=== PATIENT | male | born 1970 | race Caucasian/White ===

== ENCOUNTER 2018-09-06 14:15 | Emergency (ER) | payer MEDICARE, OTHER ==
[2018-09-06 14:20] VITALS: TEMP 97.6
[2018-09-06] MEDS ORDERED: DIPH,PERTUS(ACELL)TETVAC-LF 0.5 ML VIAL IM ONE (14:41)
[2018-09-06] MEDS ORDERED: LIDOCAINE 2% INJ 20 MG/ML (20 ML MDV) SQ STA (14:42)
--- NOTE | 2018-09-06 16:25 | ED ---
General Adult HPI - General Chief complaint: Wound/Laceration Stated complaint: Finger Lac Source: patient, RN notes reviewed, old records reviewed Mode of arrival: ambulatory Limitations: no limitations - History of Present Illness Initial comments: 40-year-old male patient comes to ED with laceration right hand. Patient states that he is walking with a large clean knife in his left hand to cut bread when he slipped and rapidly moved his left hand denies, causing a laceration in the right hand. Patient did not fall, no trauma to head, no loss of consciousness. Laceration is noted on the palmar aspect of the base of the first MCP joint. The patient has full range of motion of his hand/finger. Patient has full sensation of his hand/finger. Patient last tetanus was greater than 5 years ago. Patient denies all other complaints. Systemic: Pt denies fatigue, myalgia, fever/chills, rash. Pt denies weakness, night sweats, weight loss. Neuro: Pt denies headache, visual disturbances, syncope or pre-syncope. HEENT: Pt denies ocular discharge or irritation, otalgia, rhinorrhea, pharyngitis or notable lymphadenopathy. Cardiopulmonary: Pt denies chest pain, SOB, heart palpitations, dyspnea on exertion. Abdominal/GI: Pt denies abdominal pain, n/v/d. : Pt denies dysuria, burning w/ urination, frequency/urgency. Denies new onset urinary or bowel incontinence. MSK: Pt denies myalgia, loss of strength or function in extremities. - Related Data Home Medications Medication Instructions Recorded Confirmed Gabapentin [Neurontin] 600 mg PO QID 10/20/15 10/20/15 Lidocaine 5% Ointment 1 applic TOPICAL DAILY PRN 10/20/15 10/20/15 Previous Rx's Medication Instructions Recorded Aspirin 81 mg PO DAILY chew 02/12/15 HYDROcodone/APAP 10-325MG [Conger 1 tab PO Q6H PRN #20 tab 10/23/15 10-325] Cephalexin [Keflex] 500 mg PO QID 10 Days #40 cap 09/06/18 Allergies Allergy/AdvReac Type Severity Reaction Status Date / Time No Known Allergies Allergy Verified 09/06/18 14:20 Review of Systems ROS Statement: Those systems with pertinent positive or pertinent negative responses have been documented in the HPI. ROS Other: All systems not noted in ROS Statement are negative. Past Medical History Past Medical History: CVA/TIA, Hypertension, Neurologic Disorder Additional Past Medical History / Comment(s): TIA- when child, Neuropathy, recovering alcoholic History of Any Multi-Drug Resistant Organisms: None Reported Past Surgical History: Orthopedic Surgery Additional Past Surgical History / Comment(s): left ankle tendon repair, left index finger repair from a table saw accident, epidural injections Past Anesthesia/Blood Transfusion Reactions: No Reported Reaction Additional Past Anesthesia/Blood Transfusion Reaction / Comment(s): Never had blood transfusion Past Psychological History: Anxiety, Depression Smoking Status: Current every day smoker Past Alcohol Use History: None Reported, Abuse Past Drug Use History: None Reported - Past Family History Father History Unknown: Yes Family Medical History: Unable to Obtain Additional Family Medical History / Comment(s): Patient states that both his mother and father alive but he does not know any of their medical history. Patient also has one sister that he knows is overweight but otherwise does not know her medical history. Mother Additional Family Medical History / Comment(s): Had cardiac stent General Exam - General Exam Comments Initial Comments: Constitutional: NAD, AOX3, Pt has pleasant affect. HEENT: NC/AT, trachea midline, neck supple, no lymphadenopathy. Posterior pharynx non erythematous, without exudates. External ears appear normal, without discharge. Mucous membranes moist. Eyes PERRLA, EOM intact. There is no scleral icterus. No pallor noted. Cardiopulmonary: RRR, no murmurs, rubs or gallops, no JVD noted. Lungs CTAB in anterior and posterior butts. No peripheral edema. Abdominal exam: Abdomen soft and non-distended. Abdomen non-tender to palpation in all 4 quadrants. Bowel sounds active in LLQ. No hepatosplenomegaly. Neuro: CN II-XII grossly intact. MSK: Approximately 2 cm laceration at base of right first MCP joint. Wound explored, no tendons noted. No foreign bodies noted. Small tear and fashion noted, no bone exposed. Wound is previously irrigated with 1 L of normal saline. Wound was repaired by primary intention, 4 sutures placed. Wound well approximated after closure. Patient continued to remain neurovascularly intact after closure. Full range of motion of finger after closure. Limitations: no limitations Course Vital Signs 09/06/18 09/06/18 14:18 16:26 Temperature 97.6 F Pulse Rate 67 64 Respiratory 18 16 Rate Blood Pressure 124/79 115/73 O2 Sat by Pulse 99 100 Oximetry Medical Decision Making - Medical Decision Making 48-year-old male patient who presented with laceration on first MCP joint of right hand. Patient was cut with a clean knife. No foreign bodies and wound. Wound is explored, no tendons noted. Small 10 fashion noted. Wound was extensively irrigated with 1 L of normal saline. Wound was closed with 5, 50, simple interrupted sutures. Wound well approximated postclosure. Patient continued to have full range of motion and neurovascularly intact finger post closure. Patient tetanus updated. Patient referred to Dr. Garner, orthopedic surgeon. Patient written a prescription for Keflex. Patient to follow up with PCP and orthopedic surgeon in 1-2 days. Patient to return to ED if any new signs symptoms develop including decreased range of motion of finger , redness, swelling of finger, discharged from suture site. Case discussed with Dr. Mao Quintero. Disposition Clinical Impression: Laceration Disposition: HOME SELF-CARE Condition: Good Instructions: Laceration (ED) Additional Instructions: Patient to adhere to previously discussed treatment plan and will take medication(s) as directed. Patient to follow up with PCP in 1-2 days. Patient to return to ED if symptoms do not improve. Prescriptions: Cephalexin [Keflex] 500 mg PO QID 10 Days #40 cap Is patient prescribed a controlled substance at d/c from ED?: No Referrals: Araseli Argueta MD [Primary Care Provider] - 1-2 days Gary Garner MD [Medical Doctor] - 1-2 days Time of Disposition: 20:36
[2018-09-06 16:28] VITALS: BP 115/73; PULSE 64; RESP 16
== END 2018-09-06 16:34 | disposition home or self-care (01) ==
LOC: EC 14:15
DX: S61.011A Laceration without foreign body of right thumb without damage to nail, initial encounter (principal); G62.9 Polyneuropathy, unspecified; F41.9 Anxiety disorder, unspecified; F17.200 Nicotine dependence, unspecified, uncomplicated; Z79.899 Other long term (current) drug therapy; Z23 Encounter for immunization; W26.0XXA Contact with knife, initial encounter; Y93.01 Activity, walking, marching and hiking; Y92.009 Unspecified place in unspecified non-institutional (private) residence as the place of occurrence of the external cause
CPT/HCPCS: 90715; 99283; 90471; 12001; J2001

== ENCOUNTER 2019-02-21 19:20 | Inpatient (IN) | payer MEDICARE, OTHER ==
[2019-02-21] MEDS ORDERED: MORPHINE SULFATE 4 MG/ML SYRINGE IV STA (20:32)
[2019-02-21] MEDS ORDERED: SODIUM CHLORIDE 0.9% 500 ML 500 ML IV STA (20:32)
--- NOTE | 2019-02-21 20:35 | ED ---
General Adult HPI - General Chief complaint: Nausea/Vomiting/Diarrhea Stated complaint: Stomach virus Time Seen by Provider: 02/21/19 20:07 Source: patient Mode of arrival: wheelchair Limitations: no limitations - History of Present Illness Initial comments: Dictation was produced using [employer] dictation software. please excuse any gram matical, word or spelling errors. Chief Complaint: 48-year-old male past medical history of regional pain syndrome presents with abdominal pain. History of Present Illness: Reports that his pain started today while he was sleeping on the couch watching TV. States his pain started in his left upper quadrant region and immediately began radiating to his left lower back. Patient denies any exacerbating or mitigating factors. He states his pain is worse in his daily chronic regional pain disease. He does have a pain specialist. Patient was concerned that this was related to gas pain because it started after he ate a burger. He tried taking some gas those from the local pharmacy without any resolution of his symptoms. No nausea vomiting or diarrhea. Denies any constitutional symptoms. The ROS documented in this emergency department record has been reviewed and confirmed by me. Those systems with pertinent positive or negative responses have been documented in the HPI. All other systems are other negative and/or noncontributory. PHYSICAL EXAM: General Impression: Alert and oriented x3, not in acute distress HEENT: Normocephalic atraumatic, extra-ocular movements intact, pupils equal and reactive to light bilaterally, mucous membranes moist. Cardiovascular: Heart regular rate and rhythm, S1&S2 audible, no murmurs, rubs or gallops Chest: Lungs clear to auscultation bilaterally, no rhonchi, no wheeze, no rales Abdomen: Generalized abdominal tenderness to palpation worse on the left upper and left lower quadrant Musculoskeletal: Pulses present and equal in all extremities, no peripheral edema Motor: no focal deficits noted Neurological: CN II-XII grossly intact, no focal motor or sensory deficits noted Skin: Intact with no visualized rashes Psych: Normal affect and mood ED course: 48-year-old male presents with chief complaint of abdominal pain. S igns upon arrival are within acceptable limits. Laboratory evaluation obtained. Leukocytosis of 18.4. While panel is unremarkable. Lipase is 4843. X-ray KUB shows no acute processes. Given that patient has an exit pancreatitis ultrasound of the abdomen was performed. Patient reports she has a history of gallstones. Gallstones demonstrated on his ultrasound. This patient case with general surgery. Patient be admitted to Dr. Patel's group with GI and general surgery on consult. - Related Data Home Medications Medication Instructions Recorded Confirmed Gabapentin [Neurontin] 600 mg PO QID 10/20/15 02/21/19 Lidocaine 5% Ointment 1 applic TOPICAL DAILY PRN 10/20/15 02/21/19 Acetaminophen Tab [Tylenol Tab] 500 mg PO Q6H 02/21/19 02/21/19 Doxepin HCl 50 mg PO HS 02/21/19 02/21/19 Ibuprofen [Motrin Ib] 200 mg PO Q6H PRN 02/21/19 02/21/19 Simethicone [Gas-X] 125 mg PO BID PRN 02/21/19 02/21/19 Previous Rx's Medication Instructions Recorded HYDROcodone/APAP 10-325MG [Frost 1 tab PO Q6H PRN #20 tab 10/23/15 10-325] Allergies Allergy/AdvReac Type Severity Reaction Status Date / Time No Known Allergies Allergy Verified 02/21/19 20:55 Review of Systems ROS Statement: Those systems with pertinent positive or pertinent negative responses have been documented in the HPI. ROS Other: All systems not noted in ROS Statement are negative. Past Medical History Past Medical History: CVA/TIA, Hypertension, Neurologic Disorder Additional Past Medical History / Comment(s): TIA- when child, Neuropathy, recovering alcoholic History of Any Multi-Drug Resistant Organisms: None Reported Past Surgical History: Orthopedic Surgery Additional Past Surgical History / Comment(s): left ankle tendon repair, left index finger repair from a table saw accident, epidural injections Past Anesthesia/Blood Transfusion Reactions: No Reported Reaction Additional Past Anesthesia/Blood Transfusion Reaction / Comment(s): Never had blood transfusion Past Psychological History: Anxiety, Depression Smoking Status: Current every day smoker Past Alcohol Use History: None Reported, Abuse Past Drug Use History: None Reported - Past Family History Father History Unknown: Yes Family Medical History: Unable to Obtain Additional Family Medical History / Comment(s): Patient states that both his mother and father alive but he does not know any of their medical history. Patient also has one sister that he knows is overweight but otherwise does not know her medical history. Mother Additional Family Medical History / Comment(s): Had cardiac stent General Exam Limitations: no limitations Course Vital Signs 02/21/19 19:31 Temperature 98.7 F Pulse Rate 70 Respiratory 18 Rate Blood Pressure 167/95 O2 Sat by Pulse 99 Oximetry Medical Decision Making - Lab Data Result diagrams: 02/21/19 21:10 02/21/19 21:10 Lab Results 02/21/19 02/21/19 Range/Units 21:10 21:10 WBC 18.4 H (3.8-10.6) k/uL RBC 4.61 (4.30-5.90) m/uL Hgb 15.4 (13.0-17.5) gm/dL Hct 44.3 (39.0-53.0) % MCV 96.1 (80.0-100.0) fL MCH 33.3 (25.0-35.0) pg MCHC 34.7 (31.0-37.0) g/dL RDW 13.4 (11.5-15.5) % Plt Count 277 (150-450) k/uL Neutrophils % 88 % Lymphocytes % 7 % Monocytes % 3 % Eosinophils % 1 % Basophils % 0 % Neutrophils # 16.2 H (1.3-7.7) k/uL Lymphocytes # 1.3 (1.0-4.8) k/uL Monocytes # 0.6 (0-1.0) k/uL Eosinophils # 0.2 (0-0.7) k/uL Basophils # 0.1 (0-0.2) k/uL Sodium 139 (137-145) mmol/L Potassium 4.9 (3.5-5.1) mmol/L Chloride 105 (98-107) mmol/L Carbon Dioxide 23 (22-30) mmol/L Anion Gap 11 mmol/L BUN 5 L (9-20) mg/dL Creatinine 0.59 L (0.66-1.25) mg/dL Est GFR (CKD-EPI)AfAm >90 (>60 ml/min/1.73 sqM) Est GFR (CKD-EPI)NonAf >90 (>60 ml/min/1.73 sqM) Glucose 135 H (74-99) mg/dL Calcium 9.9 (8.4-10.2) mg/dL Total Bilirubin 0.7 (0.2-1.3) mg/dL AST 23 (17-59) U/L ALT 33 (21-72) U/L Alkaline Phosphatase 81 (38-126) U/L Total Protein 7.9 (6.3-8.2) g/dL Albumin 4.8 (3.5-5.0) g/dL Lipase 4843 H (23-300) U/L Disposition Clinical Impression: Gallstone pancreatitis Disposition: ADMITTED IP TO THIS HOSP Condition: Fair Referrals: Araseli Argueta MD [Primary Care Provider] - 1-2 days Decision Time: 22:52
[2019-02-21] MEDS ORDERED: ONDANSETRON 4 MG/2 ML VIAL IVP STA (21:15)
[2019-02-21 21:24] LABS: Basophils # (A) 0.1 k/uL (0-0.2); Basophils % (A) 0 %; Eosinophils # (A) 0.2 k/uL (0-0.7); Eosinophils % (A) 1 %; HCT 44.3 % (39.0-53.0); HGB 15.4 gm/dL (13.0-17.5); Lymphocytes # (A) 1.3 k/uL (1.0-4.8); Lymphocytes % (A) 7 %; MCH 33.3 pg (25.0-35.0); MCHC 34.7 g/dL (31.0-37.0); MCV 96.1 fL (80.0-100.0); Mean Platelet Volume 7.5; Monocytes # (A) 0.6 k/uL (0-1.0); Monocytes % (A) 3 %; Neutrophils # (A) 16.2 k/uL (1.3-7.7); Neutrophils % (A) 88 %; Platelet Count 277 k/uL (150-450); RBC 4.61 m/uL (4.30-5.90); RDW 13.4 % (11.5-15.5); WBC 18.4 k/uL (3.8-10.6)
[2019-02-21 21:35] LABS: ALT 33 U/L (21-72); AST 23 U/L (17-59); Albumin 4.8 g/dL (3.5-5.0); Alkaline Phosphatase 81 U/L (38-126); Anion Gap 11 mmol/L; Blood Urea Nitrogen 5 mg/dL (9-20); Calcium 9.9 mg/dL (8.4-10.2); Carbon Dioxide 23 mmol/L (22-30); Chloride 105 mmol/L (98-107); Glucose 135 mg/dL (74-99); Sodium 139 mmol/L (137-145); Total Bilirubin 0.7 mg/dL (0.2-1.3); Total Protein 7.9 g/dL (6.3-8.2)
--- NOTE | 2019-02-21 21:46 | XR ---
EXAMINATION TYPE: XR KUB DATE OF EXAM: 02/21/2019 COMPARISON: 08/20/2015 HISTORY: Nausea and vomiting TECHNIQUE: 2 views FINDINGS: 2 views upright show no sign of intestinal obstruction or pneumoperitoneum. Fecal pattern i s normal. Lung bases are clear. There are no pathologic calcifications over the kidneys. There is pro bably vas deferens calcification which is associated with diabetes. IMPRESSION: Nonacute abdomen. No change.
[2019-02-21 21:57] LABS: Potassium 4.9 mmol/L (3.5-5.1)
[2019-02-21 22:21] LABS: Lipase 4843 U/L (23-300)
[2019-02-21] MEDS ORDERED: MORPHINE SULFATE 4 MG/ML SYRINGE IVP STA (22:47)
[2019-02-21] MEDS ORDERED: NALOXONE 0.4 MG/ML 1 ML VIAL IV PRN (22:52)
--- NOTE | 2019-02-21 23:15 | US ---
EXAM: US Abdomen Complete CLINICAL HISTORY: ITS.REASON US Reason: Pain TECHNIQUE: Real-time ultrasound of the abdomen (complete) with image documentation. COMPARISON: No relevant prior studies available. FINDINGS: Liver: Unremarkable. No mass. No intrahepatic bile duct dilation. Gallbladder: Nonmobile stone in the gallbladder neck with borderline wall thickening and positive Harris's. A gallbladder sludge ball is present. Common bile duct: Unremarkable as visualized. No stones. No dilation. Pancreas: Unremarkable as visualized. Kidneys: Unremarkable. No stones. No solid mass. No hydronephrosis. Spleen: Unremarkable. No splenomegaly. Aorta: Unremarkable. No aneurysm. Inferior vena cava: Unremarkable. IMPRESSION: Cholelithiasis and possible cholecystitis.
[2019-02-21] MEDS: SODIUM CHLORIDE 0.9% 1,000 ML IV SCH (23:28)
[2019-02-22] MEDS ORDERED: GABAPENTIN 300 MG CAP PO SCH (00:30)
[2019-02-22] MEDS: GABAPENTIN 300 MG CAP PO SCH ×4 (00:44→17:32)
[2019-02-22 01:10] LABS: Appearance,Urine Cloudy (Clear); Bacteria,Urine Many /hpf; Bilirubin,Urine Negative (Negative); Blood,Urine Trace (Negative); Color,Urine Yellow; Glucose,Urine (UA) Negative (Negative); Hyaline Casts,Urine 1 /lpf (0-2); Ketones,Urine Negative (Negative); Leukocyte Esterase,Urine Small (Negative); Mucus,Urine Rare /hpf; Nitrite,Urine Positive (Negative); PH, Urine 5.5 (5.0-8.0); Protein,Urine 1+ (Negative); RBC,Urine 5 /hpf (0-5); Specific Gravity,Urine 1.023 (1.001-1.035); Squamous Epithelial Cell,Urine <1 /hpf (0-4); Urobilinogen,Urine <2.0 mg/dL (<2.0)
[2019-02-22] MEDS: NICOTINE 21MG/24HR PATCH TRANSDERM SCH (01:12)
[2019-02-22] MEDS: MORPHINE SULFATE 4 MG/ML SYRINGE IV PRN ×5 (03:17→20:01)
[2019-02-22] MEDS: ACETAMINOPHEN TAB 325 MG TAB PO PRN ×4 (04:59→23:03)
[2019-02-22] MEDS: PANTOPRAZOLE 40 MG/10 ML VIAL IV SCH (07:20)
[2019-02-22] MEDS: DOCUSATE 100 MG CAP PO PRN (10:19)
--- NOTE | 2019-02-22 10:30 | P.GSCN ---
History of Present Illness Consult date: 02/22/19 History of present illness: 48-year-old male presented to the emergency department with complaints of abdominal pain in the epigastrium, nausea and vomiting episodes. He states that the pain started a few hours prior to his presentation to the emergency department. He denied any fevers, chills, chest pain or shortness of breath. On workup in the emergency department, the patient was found to have a lipase level greater than 4000 and was noted to also have gallstones and biliary sludge on ultrasound of the gallbladder. The patient denies any recent alcohol intake. He states that he does have chronic pain issues and does take chronic opiates daily along with Lidoderm patches. He denies any change in bowel function. He denies any difficulty with urination. Currently, on exam the patient states that he does not feel any different than when he presented to the emergency department. He does state he has known about cholelithiasis for approximately 2 years. He de nies any previous abdominal surgery. Review of Systems All systems: negative Past Medical History Past Medical History: CVA/TIA, Hypertension, Neurologic Disorder Additional Past Medical History / Comment(s): TIA- when child, Neuropathy, recovering alcoholic History of Any Multi-Drug Resistant Organisms: None Reported Past Surgical History: Orthopedic Surgery Additional Past Surgical History / Comment(s): left ankle tendon repair, left index finger repair from a table saw accident, epidural injections Past Anesthesia/Blood Transfusion Reactions: No Reported Reaction Additional Past Anesthesia/Blood Transfusion Reaction / Comm: Never had blood transfusion Past Psychological History: Anxiety, Depression Smoking Status: Current every day smoker Past Alcohol Use History: None Reported, Abuse Additional Past Alcohol Use History / Comment(s): Patient is a smoker of 1-1/2 packs per day since he was 25 years of age. He states he does not drink alcohol on a regular basis but does have a history of 2 [address] denies [address] drug use. Patient is single and does not have any children. Past Drug Use History: None Reported - Past Family History Father History Unknown: Yes Family Medical History: Unable to Obtain Additional Family Medical History / Comment(s): Patient states that both his mother and father alive but he does not know any of their medical history. Patient also has one sister that he knows is overweight but otherwise does not know her medical history. Mother Additional Family Medical History / Comment(s): Had cardiac stent Medications and Allergies Home Medications Medication Instructions Recorded Confirmed Type Gabapentin [Neurontin] 600 mg PO QID 10/20/15 02/21/19 History Lidocaine 5% Ointment 1 applic TOPICAL DAILY PRN 10/20/15 02/21/19 History HYDROcodone/APAP 10-325MG [Pool 1 tab PO Q6H PRN #20 tab 10/23/15 02/21/19 Rx 10-325] Acetaminophen Tab [Tylenol Tab] 500 mg PO Q6H 02/21/19 02/21/19 History Doxepin HCl 50 mg PO HS 02/21/19 02/21/19 History Ibuprofen [Motrin Ib] 200 mg PO Q6H PRN 02/21/19 02/21/19 History Simethicone [Gas-X] 125 mg PO BID PRN 02/21/19 02/21/19 History Allergies Allergy/AdvReac Type Severity Reaction Status Date / Time No Known Allergies Allergy Verified 02/21/19 20:55 Surgical - Exam Osteopathic Statement: *. No significant issues noted on an osteopathic structural exam other than those noted in the History and Physical/Consult. Vital Signs Temp Pulse Resp BP Pulse Ox 98.7 F 70 18 167/95 99 02/21/19 19:31 02/21/19 19:31 02/21/19 19:31 02/21/19 19:31 02/21/19 19:31 - General Disheveled well nourished, no distress - Eyes PERRL, normal ocular movement - ENT no hearing loss - Neck trachea midline - Respiratory No difficulty with respiration - Abdomen Soft, tender to palpation in the epigastrium, nondistended, no rebound, no guarding - Psychiatric oriented to time, oriented to person, oriented to place Results - Labs 02/21/19 21:10 02/21/19 21:10 Abnormal Lab Results - Last 24 Hours (Table) 02/21/19 02/21/19 02/21/19 Range/Units 21:10 21:10 21:25 WBC 18.4 H (3.8-10.6) k/uL Neutrophils # 16.2 H (1.3-7.7) k/uL BUN 5 L (9-20) mg/dL Creatinine 0.59 L (0.66-1.25) mg/dL Glucose 135 H (74-99) mg/dL Lipase 4843 H (23-300) U/L Urine Protein 1+ H (Negative) Urine Blood Trace H (Negative) Ur Leukocyte Esterase Small H (Negative) Urine WBC 21 H (0-5) /hpf Urine Bacteria Many H (None) /hpf Urine Mucus Rare H (None) /hpf Microbiology - Last 24 Hours (Table) 02/21/19 21:25 Urine Culture - Preliminary Urine,Clean Catch Diabetes panel 02/21/19 Range/Units 21:10 Sodium 139 (137-145) mmol/L Potassium 4.9 (3.5-5.1) mmol/L Chloride 105 (98-107) mmol/L Carbon Dioxide 23 (22-30) mmol/L BUN 5 L (9-20) mg/dL Creatinine 0.59 L (0.66-1.25) mg/dL Glucose 135 H (74-99) mg/dL Calcium 9.9 (8.4-10.2) mg/dL AST 23 (17-59) U/L ALT 33 (21-72) U/L Alkaline Phosphatase 81 (38-126) U/L Total Protein 7.9 (6.3-8.2) g/dL Albumin 4.8 (3.5-5.0) g/dL Calcium panel 02/21/19 Range/Units 21:10 Calcium 9.9 (8.4-10.2) mg/dL Albumin 4.8 (3.5-5.0) g/dL Pituitary panel 02/21/19 Range/Units 21:10 Sodium 139 (137-145) mmol/L Potassium 4.9 (3.5-5.1) mmol/L Chloride 105 (98-107) mmol/L Carbon Dioxide 23 (22-30) mmol/L BUN 5 L (9-20) mg/dL Creatinine 0.59 L (0.66-1.25) mg/dL Glucose 135 H (74-99) mg/dL Calcium 9.9 (8.4-10.2) mg/dL Adrenal panel 02/21/19 Range/Units 21:10 Sodium 139 (137-145) mmol/L Potassium 4.9 (3.5-5.1) mmol/L Chloride 105 (98-107) mmol/L Carbon Dioxide 23 (22-30) mmol/L BUN 5 L (9-20) mg/dL Creatinine 0.59 L (0.66-1.25) mg/dL Glucose 135 H (74-99) mg/dL Calcium 9.9 (8.4-10.2) mg/dL Total Bilirubin 0.7 (0.2-1.3) mg/dL AST 23 (17-59) U/L ALT 33 (21-72) U/L Alkaline Phosphatase 81 (38-126) U/L Total Protein 7.9 (6.3-8.2) g/dL Albumin 4.8 (3.5-5.0) g/dL Assessment and Plan (1) Gallstone pancreatitis Narrative/Plan: 48-year-old male with gallstone pancreatitis - Ultrasound does show concern for cholecystitis. With a leukocytosis of 18.4, we will begin Unasyn. - Increase IV fluids to 150 mL/h - Keep the patient nothing by mouth, okay for ice chips and medications - Case was discussed with gastroenterology, plan was agreed on - Patient will require a cholecystectomy during this admission after the pancreatitis clears, we will treat pancreatitis and cholecystitis in the meantime with IV fluids and antibiotics. Current Visit: Yes Status: Acute Code(s): K85.10 - BILIARY ACUTE PANCREATITIS WITHOUT NECROSIS OR INFECTION SNOMED Code(s): 01988911
[2019-02-22 10:46] LABS: Basophils % (A) 0 %; Eosinophils # (A) 0.2 k/uL (0-0.7); Eosinophils % (A) 1 %; HCT 46.7 % (39.0-53.0); HGB 15.7 gm/dL (13.0-17.5); Lymphocytes # (A) 1.4 k/uL (1.0-4.8); Lymphocytes % (A) 7 %; MCH 32.8 pg (25.0-35.0); MCHC 33.7 g/dL (31.0-37.0); MCV 97.1 fL (80.0-100.0); Mean Platelet Volume 7.1; Monocytes # (A) 1.1 k/uL (0-1.0); Monocytes % (A) 6 %; Neutrophils % (A) 85 %; Platelet Count 266 k/uL (150-450); RBC 4.81 m/uL (4.30-5.90); RDW 13.5 % (11.5-15.5); WBC 18.9 k/uL (3.8-10.6)
[2019-02-22 11:01] LABS: ALT 31 U/L (21-72); AST 15 U/L (17-59); Albumin 4.2 g/dL (3.5-5.0); Alkaline Phosphatase 80 U/L (38-126); Anion Gap 8 mmol/L; Blood Urea Nitrogen 6 mg/dL (9-20); Calcium 9.6 mg/dL (8.4-10.2); Carbon Dioxide 33 mmol/L (22-30); Chloride 97 mmol/L (98-107); Glucose 110 mg/dL (74-99); Potassium 4.4 mmol/L (3.5-5.1); Sodium 138 mmol/L (137-145); Total Bilirubin 0.6 mg/dL (0.2-1.3); Total Protein 6.9 g/dL (6.3-8.2)
[2019-02-22 11:14] LABS: Amylase 528 U/L (30-110); Lipase 2870 U/L (23-300)
[2019-02-22] MEDS: SODIUM CHLORIDE 0.9% 1,000 ML IV SCH ×2 (12:13→17:33)
--- NOTE | 2019-02-22 14:43 | P.HPIM ---
History of Present Illness 80-year-old male came to emergency button with complaint of severe epigastric abdominal pain radiating to the back along with nausea vomiting multiple episodes patient had also has a right upper quadrant abdominal pain, patient did quit drinking alcohol about 3-4 months ago. Patient had an ultrasound of the gallbladder which showed gallstones with biliary sludge and possibility of cholecystitis that cannot be ruled out patient does have a right upper quadrant tenderness as well as epigastric abdominal tenderness patient is presently nothing by mouth lipase and amylase were elevated which are coming down at this time patient will remain will need to remain nothing by mouth and the patient was started on Unasyn as per original surgery for possibility of cholecystitis, patient doesn't have any significant elevated liver enzymes there is no evidence of cortical gases are biliary obstruction at this time. Patient did denied any fever chills cough. Review of Systems REVIEW OF SYSTEMS: CONSTITUTIONAL: No fever, no malaise, no fatigue. HEENT: No recent visual problems or hearing problems. Denied any sore throat. CARDIOVASCULAR: No chest pain, orthopnea, PND, no palpitations, no syncope. PULMONARY: No shortness of breath, no cough, no hemoptysis. GASTROINTESTINAL: As mentioned in HPI NEUROLOGICAL: No headaches, no weakness, no numbness. HEMATOLOGICAL: Denies any bleeding or petechiae. GENITOURINARY: Denies any burning micturition, frequency, or urgency. MUSCULOSKELETAL/RHEUMATOLOGICAL: Denies any joint pain, swelling, or any muscle pain. ENDOCRINE: Denies any polyuria or polydipsia. The rest of the 14-point review of systems is negative. Past Medical History Past Medical History: CVA/TIA, Hypertension, Neurologic Disorder Additional Past Medical History / Comment(s): TIA- when child, Neuropathy, recov ering alcoholic History of Any Multi-Drug Resistant Organisms: None Reported Past Surgical History: Orthopedic Surgery Additional Past Surgical History / Comment(s): left ankle tendon repair, left index finger repair from a table saw accident, epidural injections Past Anesthesia/Blood Transfusion Reactions: No Reported Reaction Additional Past Anesthesia/Blood Transfusion Reaction / Comment(s): Never had blood transfusion Past Psychological History: Anxiety, Depression Smoking Status: Current every day smoker Past Alcohol Use History: None Reported, Abuse Additional Past Alcohol Use History / Comment(s): Patient is a smoker of 1-1/2 packs per day since he was 25 years of age. He states he does not drink alcohol on a regular basis but does have a history of 2 [address] denies [address] drug use. Patient is single and does not have any children. Past Drug Use History: None Reported - Past Family History Father History Unknown: Yes Family Medical History: Unable to Obtain Additional Family Medical History / Comment(s): Patient states that both his mother and father alive but he does not know any of their medical history. Chanel hi also has one sister that he knows is overweight but otherwise does not know her medical history. Mother Additional Family Medical History / Comment(s): Had cardiac stent Medications and Allergies Home Medications Medication Instructions Recorded Confirmed Type Gabapentin [Neurontin] 600 mg PO QID 10/20/15 02/21/19 History Lidocaine 5% Ointment 1 applic TOPICAL DAILY PRN 10/20/15 02/21/19 History HYDROcodone/APAP 10-325MG [[place] 1 tab PO Q6H PRN #20 tab 10/23/15 02/21/19 Rx 10-325] Acetaminophen Tab [Tylenol Tab] 500 mg PO Q6H 02/21/19 02/21/19 History Doxepin HCl 50 mg PO HS 02/21/19 02/21/19 History Ibuprofen [Motrin Ib] 200 mg PO Q6H PRN 02/21/19 02/21/19 History Simethicone [Gas-X] 125 mg PO BID PRN 02/21/19 02/21/19 History Allergies Allergy/AdvReac Type Severity Reaction Status Date / Time No Known Allergies Allergy Verified 02/21/19 20:55 Physical Exam Vitals: Vital Signs Temp Pulse Pulse Resp BP BP Pulse Ox 02/22/19 07:50 99.0 F 77 16 152/82 95 02/22/19 01:10 98.5 F 69 16 162/84 94 L 02/21/19 23:48 98.2 F 74 20 158/95 94 L 02/21/19 23:41 98.8 F 78 15 119/67 99 02/21/19 19:31 98.7 F 70 18 167/95 99 Intake and Output 02/21/19 02/22/19 02/22/19 22:59 06:59 14:59 Intake Total 500 1200 Output Total 550 Balance -50 1200 Intake: Amount of Fluid Infused ( 500 ml) Intake, IV Titration 1200 Amount Sodium Chloride 0.9% 1, 1200 000 ml @ 150 mls/hr IV . Q6H40M [facility] Rx#:[id number] Output: Urine 550 Other: Voiding Method Urinal # Voids 1 2 Weight 65.771 kg PHYSICAL EXAMINATION: GENERAL: The patient is alert and oriented x3, not in any acute distress. Well developed, well nourished. HEENT: Pupils are round and equally reacting to light. EOMI. No scleral icterus. No conjunctival pallor. Normocephalic, atraumatic. No pharyngeal erythema. No thyromegaly. CARDIOVASCULAR: S1 and S2 present. No murmurs, rubs, or gallops. PULMONARY: Chest is clear to auscultation, no wheezing or crackles. ABDOMEN: Soft, the gastric abdominal tenderness and right upper quadrant tenderness bowel sounds are present MUSCULOSKELETAL: No joint swelling or deformity. EXTREMITIES: No cyanosis, clubbing, or pedal edema. NEUROLOGICAL: Gross neurological examination did not reveal any focal deficits. SKIN: No rashes. Results CBC & Chem 7: 02/22/19 10:30 02/22/19 10:30 Labs: Abnormal Lab Results - Last 24 Hours (Table) 02/21/19 02/21/19 02/21/19 Range/Units 21:10 21:10 21:25 WBC 18.4 H (3.8-10.6) k/uL Neutrophils # 16.2 H (1.3-7.7) k/uL Monocytes # (0-1.0) k/uL Chloride (98-107) mmol/L Carbon Dioxide (22-30) mmol/L BUN 5 L (9-20) mg/dL Creatinine 0.59 L (0.66-1.25) mg/dL Glucose 135 H (74-99) mg/dL AST (17-59) U/L Amylase (30-110) U/L Lipase 4843 H (23-300) U/L Urine Protein 1+ H (Negative) Urine Blood Trace H (Negative) Ur Leukocyte Esterase Small H (Negative) Urine WBC 21 H (0-5) /hpf Urine Bacteria Many H (None) /hpf Urine Mucus Rare H (None) /hpf 02/22/19 02/22/19 Range/Units 10:30 10:30 WBC 18.9 H (3.8-10.6) k/uL Neutrophils # 16.0 H (1.3-7.7) k/uL Monocytes # 1.1 H (0-1.0) k/uL Chloride 97 L (98-107) mmol/L Carbon Dioxide 33 H (22-30) mmol/L BUN 6 L (9-20) mg/dL Creatinine (0.66-1.25) mg/dL Glucose 110 H (74-99) mg/dL AST 15 L (17-59) U/L Amylase 528 H* (30-110) U/L Lipase 2870 H (23-300) U/L Urine Protein (Negative) Urine Blood (Negative) Ur Leukocyte Esterase (Negative) Urine WBC (0-5) /hpf Urine Bacteria (None) /hpf Urine Mucus (None) /hpf Microbiology - Last 24 Hours (Table) 02/21/19 21:25 Urine Culture - Preliminary Urine,Clean Catch Thrombosis Risk Factor Assmnt - Choose All That Apply Each Factor Represents 1 point: Age 41-60 years Thrombosis Risk Factor Assessment Total Risk Factor Score: 1 Thrombosis Risk Factor Assessment Level: Low Risk Assessment and Plan Plan: -Gallstone pancreatitis: Patient can you done IV fluids at present rate patient will remain nothing by mouth. -Possibility of cholecystitis: Continue with Unasyn and IV fluids as mentioned above -Hypertension -Depression -nicotine use: Counseling was provided regarding this. Patient will need pharmacologic GI and DVT prophylaxis
[2019-02-22] MEDS: AMPICILLIN-SULBACTAM 3 GM in SODIUM CHLORIDE 0.9% 100 ML IVPB SCH (16:18)
[2019-02-22] MEDS: HEPARIN SODIUM,PORCINE 5,000 UNIT/ML 1 ML VIAL SQ SCH (16:29)
[2019-02-22] MEDS: ONDANSETRON 4 MG/2 ML VIAL IVP PRN (21:41)
--- NOTE | 2019-02-22 23:46 | P.CONS ---
History of Present Illness - Reason for Consult Consult date: 02/22/19 Pancreatitis Requesting physician: Fernando Irvin - Chief Complaint Abdominal pain - History of Present Illness 48-year-old male with a medical history significant for regional pain syndrome who presented to the hospital with complaints of abdominal pain. The patient reports that the pain occurred a few hours prior to presentation to the emergency department. He reports that initially started in the left upper quadrant of his abdomen with radiation into his back and then moved to the right side of his upper abdomen. The patient reports that the pain was worse after eating and that he had associated episodes of nausea and vomiting. He denies any change in his bowel habits, hematochezia, melena or blood per rectum, he does report constipation at baseline. On presentation to the hospital he was found to have a WBC 18.4, hemoglobin 15.4, platelet count 277,000. Lipase was found to be 4843. Total bilirubin 0.7, alkaline phosphatase 81, AST 23, ALT 33. The patient had an x-ray of the abdomen which was negative for any acute findings. Ultrasound of the abdomen was significant for cholelithiasis with possible cholecystitis, with no common bile duct dilation noted. Review of Systems REVIEW OF SYSTEMS: CONSTITUTIONAL: Denies any fevers, chills, weight change or fatigue. CARDIOVASCULAR: Denies any chest pain, palpitations high or low blood pressures RESPIRATORY: Denies any shortness of breath, hemoptysis or cough. GENITOURINARY: No dysuria or hematuria. MUSCULOSKELETAL: No weakness reported. SKIN: Denies any new rashes or lesions, jaundice or pallor. PSYCHIATRIC: Denies change in mood. NEUROLOGY: Denies headache, denies any new focal deficits. EARS/NOSE/THROAT: No recent hearing change, congestion, nasal discharge or sore throat. EYES: No pain in eyes, discharge or change in vision. GASTROINTESTINAL: As per HPI. Past Medical History Past Medical History: CVA/TIA, Hypertension, Neurologic Disorder Additional Past Medical History / Comment(s): TIA- when child, Neuropathy, recovering alcoholic History of Any Multi-Drug Resistant Organisms: None Reported Past Surgical History: Orthopedic Surgery Additional Past Surgical History / Comment(s): left ankle tendon repair, left index finger repair from a table saw accident, epidural injections Past Anesthesia/Blood Transfusion Reactions: No Reported Reaction Additional Past Anesthesia/Blood Transfusion Reaction / Comm: Never had blood transfusion Past Psychological History: Anxiety, Depression Smoking Status: Current every day smoker Past Alcohol Use History: None Reported, Abuse Additional Past Alcohol Use History / Comment(s): Patient is a smoker of 1-1/2 packs per day since he was 25 years of age. He states he does not drink alcohol on a regular basis but does have a history of 2 DUIs[address] denies any [address] drug use. Patient is single and does not have any children. Past Drug Use History: None Reported - Past Family History Father History Unknown: Yes Family Medical History: Unable to Obtain Additional Family Medical History / Comment(s): Patient states that both his mother and father alive but he does not know any of their medical history. Patient also has one sister that he knows is overweight but otherwise does not know her medical history. Mother Additional Family Medical History / Comment(s): Had cardiac stent Medications and Allergies Home Medications Medication Instructions Recorded Confirmed Type Gabapentin [Neurontin] 600 mg PO QID 10/20/15 02/21/19 History Lidocaine 5% Ointment 1 applic TOPICAL DAILY PRN 10/20/15 02/21/19 History HYDROcodone/APAP 10-325MG [[place] 1 tab PO Q6H PRN #20 tab 10/23/15 02/21/19 Rx 10-325] Acetaminophen Tab [Tylenol Tab] 500 mg PO Q6H 02/21/19 02/21/19 History Doxepin HCl 50 mg PO HS 02/21/19 02/21/19 History Ibuprofen [Motrin Ib] 200 mg PO Q6H PRN 02/21/19 02/21/19 History Simethicone [Gas-X] 125 mg PO BID PRN 02/21/19 02/21/19 History Allergies Allergy/AdvReac Type Severity Reaction Status Date / Time No Known Allergies Allergy Verified 02/21/19 20:55 Physical Exam Vitals: Vital Signs Temp Pulse Pulse Resp BP BP Pulse Ox 02/22/19 20:10 98.0 F 02/22/19 19:00 101.0 F H 97 20 154/94 93 L 02/22/19 14:47 98.9 F 68 16 152/99 96 02/22/19 07:50 99.0 F 77 16 152/82 95 02/22/19 01:10 98.5 F 69 16 162/84 94 L 02/21/19 23:48 98.2 F 74 20 158/95 94 L 02/21/19 23:41 98.8 F 78 15 119/67 99 Intake and Output 02/22/19 02/22/19 02/23/19 14:59 22:59 06:59 Intake Total 1200 Output Total 600 Balance 1200 -600 Intake: Intake, IV Titration 1200 Amount Sodium Chloride 0.9% 1, 1200 000 ml @ 150 mls/hr IV . Q6H40M [facility] Rx#:[id number] Output: Urine 600 Other: Voiding Method Urinal # Voids 2 On physical examination, patient appears comfortable in no apparent distress. HEAD: Normocephalic, atraumatic. EYES: No scleral icterus. No conjunctival injection. MOUTH: No lesions, tongue midline. NECK: Trachea midline, no gross abnormalities. CHEST: Clear to auscultation with no wheezing or rhonchi appreciated. HEART: Regular rate and rhythm. ABDOMEN: Soft, diffusely tender to palpation. Bowel sounds are positive. No organomegaly. No guarding or rigidity. EXTREMITIES: No pedal edema. SKIN: No rashes, no jaundice. NEUROLOGIC: Alert and oriented x3. No focal deficits. Results CBC & Chem 7: 02/22/19 10:30 02/22/19 10:30 Labs: Abnormal Lab Results - Last 24 Hours (Table) 02/21/19 02/22/19 02/22/19 Range/Units 21:25 10:30 10:30 WBC 18.9 H (3.8-10.6) k/uL Neutrophils # 16.0 H (1.3-7.7) k/uL Monocytes # 1.1 H (0-1.0) k/uL Chloride 97 L (98-107) mmol/L Carbon Dioxide 33 H (22-30) mmol/L BUN 6 L (9-20) mg/dL Glucose 110 H (74-99) mg/dL AST 15 L (17-59) U/L Amylase 528 H* (30-110) U/L Lipase 2870 H (23-300) U/L Urine Protein 1+ H (Negative) Urine Blood Trace H (Negative) Ur Leukocyte Esterase Small H (Negative) Urine WBC 21 H (0-5) /hpf Urine Bacteria Many H (None) /hpf Urine Mucus Rare H (None) /hpf Microbiology - Last 24 Hours (Table) 02/21/19 21:25 Urine Culture - Preliminary Urine,Clean Catch US - abdomen: report reviewed (Ultrasound of the abdomen was significant for cholelithiasis with possible cholecystitis, with no common bile duct dilation noted.) Assessment and Plan (1) Gallstone pancreatitis Narrative/Plan: 48-year-old male who presented to the hospital with complaints of abdominal pain and found to have elevation in his amylase and lipase. Ultrasound of the abdomen was significant for cholelithiasis with possible cholecystitis seen. Current Visit: Yes Status: Acute Code(s): K85.10 - BILIARY ACUTE PANCREATITIS WITHOUT NECROSIS OR INFECTION SNOMED Code(s): 41903398 (2) Cholelithiasis Current Visit: No Status: Acute Code(s): K80.20 - CALCULUS OF GALLBLADDER W/O CHOLECYSTITIS W/O OBSTRUCTION SNOMED Code(s): 621287951 Plan: Supportive care Nothing by mouth IV fluid hydration Pain control Appreciate surgical recommendations Continue Unasyn therapy Timing of cholecystectomy to be disrupted with the surgery service No plan for ERCP with low probability of choledocholithiasis in the setting of no ductal dilation and normal liver enzymes Thank you for allowing us to participate in the care of the patient we will continue to follow
[2019-02-23] MEDS: HEPARIN SODIUM,PORCINE 5,000 UNIT/ML 1 ML VIAL SQ SCH ×3 (00:04→14:52)
[2019-02-23] MEDS: AMPICILLIN-SULBACTAM 3 GM in SODIUM CHLORIDE 0.9% 100 ML IVPB SCH ×4 (00:05→23:53)
[2019-02-23] MEDS: SODIUM CHLORIDE 0.9% 1,000 ML IV SCH ×3 (00:05→14:51)
[2019-02-23] MEDS: GABAPENTIN 300 MG CAP PO SCH ×4 (00:05→18:03)
[2019-02-23] MEDS: MORPHINE SULFATE 4 MG/ML SYRINGE IV PRN ×6 (00:06→23:53)
[2019-02-23] MEDS: NICOTINE 21MG/24HR PATCH TRANSDERM SCH (04:02)
[2019-02-23] MEDS: ONDANSETRON 4 MG/2 ML VIAL IVP PRN (04:09)
[2019-02-23] MEDS: DOCUSATE 100 MG CAP PO PRN (04:10)
[2019-02-23] MEDS: PANTOPRAZOLE 40 MG/10 ML VIAL IV SCH ×2 (07:17→07:56)
[2019-02-23] MEDS: ACETAMINOPHEN TAB 325 MG TAB PO PRN ×2 (07:20→18:09)
[2019-02-23 07:51] LABS: ALT 25 U/L (21-72); AST 15 U/L (17-59); Albumin 3.7 g/dL (3.5-5.0); Alkaline Phosphatase 75 U/L (38-126); Amylase 248 U/L (30-110); Anion Gap 8 mmol/L; Blood Urea Nitrogen 6 mg/dL (9-20); Calcium 9.1 mg/dL (8.4-10.2); Carbon Dioxide 32 mmol/L (22-30); Chloride 98 mmol/L (98-107); Glucose 98 mg/dL (74-99); Lipase 762 U/L (23-300); Sodium 138 mmol/L (137-145); Total Bilirubin 0.8 mg/dL (0.2-1.3); Total Protein 6.3 g/dL (6.3-8.2)
[2019-02-23 08:05] LABS: Basophils % (A) 0 %; Eosinophils # (A) 0.1 k/uL (0-0.7); Eosinophils % (A) 0 %; HCT 45.2 % (39.0-53.0); Lymphocytes # (A) 1.9 k/uL (1.0-4.8); Lymphocytes % (A) 11 %; MCH 31.9 pg (25.0-35.0); MCHC 33.2 g/dL (31.0-37.0); MCV 96.1 fL (80.0-100.0); Monocytes % (A) 5 %; Neutrophils % (A) 82 %; Platelet Count 275 k/uL (150-450); RDW 14.1 % (11.5-15.5); WBC 18.3 k/uL (3.8-10.6)
[2019-02-23] MEDS ORDERED: KETOROLAC 30 MG/ML 1 ML VIAL IVP PRN (08:42)
--- NOTE | 2019-02-23 11:12 | P.PN ---
Subjective Progress Note Date: 02/23/19 Patient seen and examined at bedside. States he feels bloated today. He is not having any flatus or bowel movement. States abdominal pain is mostly unchanged. States his nausea is improving. Objective - Vital Signs Vital signs: Vital Signs Temp 97.7 F 02/23/19 07:00 Pulse 93 02/23/19 07:00 Resp 16 02/23/19 07:00 BP 133/89 02/23/19 07:00 Pulse Ox 93 L 02/23/19 07:00 Intake & Output 02/22/19 02/23/19 02/23/19 18:59 06:59 18:59 Intake Total 1200 1200 Output Total 600 Balance 1200 600 Intake: Intake, IV Titration 1200 1200 Amount Sodium Chloride 0.9% 1, 1200 1200 000 ml @ 150 mls/hr IV . Q6H40M [facility] Rx#:[id number] Output: Urine 600 Other: Voiding Method Urinal # Voids 2 3 - Constitutional General appearance: Present: cooperative, no acute distress - EENT Eyes: Present: PERRLA - Respiratory Details: No difficulty with respiration - Gastrointestinal Gastrointestinal Comment(s): Soft, mild tenderness epigastrium, mild distention, no rebound, no guarding - Psychiatric Psychiatric: Present: A&O x's 3 - Labs CBC & Chem 7: 02/23/19 07:17 02/23/19 07:17 Labs: Abnormal Lab Results - Last 24 Hours (Table) 02/22/19 02/23/19 02/23/19 Range/Units 10:30 07:17 07:17 WBC 18.3 H (3.8-10.6) k/uL Neutrophils # 15.0 H (1.3-7.7) k/uL Chloride 97 L (98-107) mmol/L Carbon Dioxide 33 H 32 H (22-30) mmol/L BUN 6 L 6 L (9-20) mg/dL Creatinine 0.64 L (0.66-1.25) mg/dL Glucose 110 H (74-99) mg/dL AST 15 L 15 L (17-59) U/L Amylase 528 H* 248 H (30-110) U/L Lipase 2870 H 762 H (23-300) U/L Microbiology - Last 24 Hours (Table) 02/21/19 21:25 Urine Culture - Preliminary Urine,Clean Catch Assessment and Plan (1) Gallstone pancreatitis Narrative/Plan: 48-year-old male with gallstone pancreatitis - Pancreatitis appears to be improving, symptoms are really unchanged today - Continue IV fluids at 150 mL/h - Keep the patient nothing by mouth, okay for ice chips and medications - Leukocytosis still present, continue antibiotics for cholecystitis - Patient will require a cholecystectomy during this admission after the pancreatitis clears, we will treat pancreatitis and cholecystitis in the mean time with IV fluids and antibiotics, possible cholecystectomy tomorrow based on clinical progress Current Visit: Yes Status: Acute Code(s): K85.10 - BILIARY ACUTE PANCREATITIS WITHOUT NECROSIS OR INFECTION SNOMED Code(s): 46660370
--- NOTE | 2019-02-23 12:36 | P.PN ---
Subjective Patient was admitted for gall stone pancreatitis. Abdominal pain improved patient is hungry patient was started on clear liquid diet advance as tolerated patient probably can undergo cholecystectomy as early as tomorrow. Patient liver enzymes are stable lipase and amylase have come down. Abdominal pain improved nausea vomiting resolved Constitutional: Denied any fatigue denied any fever. Cardio vascular: denied any chest pain, palpitations Gastrointestinal denied any nausea vomiting Pulmonary: Denied any shortness of breath cough Neurologic denied any new focal deficits All inpatient medications were reviewed and appropriate changes in these medications as dictated in the interval history and assessment and plan. Objective - Vital Signs Vital signs: Vital Signs Temp 97.7 F 02/23/19 07:00 Pulse 93 02/23/19 07:00 Resp 16 02/23/19 07:00 BP 133/89 02/23/19 07:00 Pulse Ox 93 L 02/23/19 07:00 Intake & Output 02/22/19 02/23/19 02/23/19 18:59 06:59 18:59 Intake Total 1200 1200 Output Total 600 Balance 1200 600 Intake: Intake, IV Titration 1200 1200 Amount Sodium Chloride 0.9% 1, 1200 1200 000 ml @ 150 mls/hr IV . Q6H40M [facility] Rx#:[id number] Output: Urine 600 Other: Voiding Method Urinal # Voids 2 3 - Exam PHYSICAL EXAMINATION: GENERAL: The patient is alert and oriented x3, not in any acute distress. Well developed, well nourished. HEENT: Pupils are round and equally reacting to light. EOMI. No scleral icterus. No conjunctival pallor. Normocephalic, atraumatic. No pharyngeal erythema. No thyromegaly. CARDIOVASCULAR: S1 and S2 present. No murmurs, rubs, or gallops. PULMONARY: Chest is clear to auscultation, no wheezing or crackles. ABDOMEN: Soft, nontender, nondistended, normoactive bowel sounds. No palpable organomegaly. MUSCULOSKELETAL: No joint swelling or deformity. EXTREMITIES: No cyanosis, clubbing, or pedal edema. NEUROLOGICAL: Gross neurological examination did not reveal any focal deficits. SKIN: No rashes. - Labs CBC & Chem 7: 02/23/19 07:17 02/23/19 07:17 Labs: Abnormal Lab Results - Last 24 Hours (Table) 02/23/19 02/23/19 Range/Units 07:17 07:17 WBC 18.3 H (3.8-10.6) k/uL Neutrophils # 15.0 H (1.3-7.7) k/uL Carbon Dioxide 32 H (22-30) mmol/L BUN 6 L (9-20) mg/dL Creatinine 0.64 L (0.66-1.25) mg/dL AST 15 L (17-59) U/L Amylase 248 H (30-110) U/L Lipase 762 H (23-300) U/L Microbiology - Last 24 Hours (Table) 02/21/19 21:25 Urine Culture - Preliminary Urine,Clean Catch Assessment and Plan Plan: -Gallstone pancreatitis: Pancreatic that is improved patient was started on clear liquid diet as advance as tolerated if agreeable by general surgery and gastroenterology. Patient is bit constipated opiate analogies will be discontinued patient was started on Toradol -Possibility of cholecystitis: Continue with Unasyn and IV fluids as mentioned above -Hypertension -Depression -nicotine use: Counseling was provided . Patient will need pharmacologic GI and DVT prophylaxis
[2019-02-23] MEDS: BISACODYL 10 MG SUPP RECTAL SCH (14:51)
--- NOTE | 2019-02-23 20:59 | P.PN ---
Subjective Progress Note Date: 02/23/19 Principal diagnosis: Pancreatitis Patient seen lying in bed, reports abdominal pain feels improved. Still no bowel movement reported. No nausea vomiting reported. Objective - Vital Signs Vital signs: Vital Signs Temp 97.9 F 02/23/19 19:00 Pulse 81 02/23/19 19:00 Resp 18 02/23/19 19:00 BP 144/91 02/23/19 19:00 Pulse Ox 93 L 02/23/19 19:00 Intake & Output 02/23/19 02/23/19 02/24/19 06:59 18:59 06:59 Intake Total 1200 900 Output Total 600 200 Balance 600 700 Intake: Intake, IV Titration 1200 900 Amount Ampicillin-Sulbactam 3 gm 100 In Sodium Chloride 0.9% 100 ml @ 200 mls/hr IVPB Q8HR [facility] Rx#:[id number] Sodium Chloride 0.9% 1, 1200 800 000 ml @ 75 mls/hr IV . [id number] [facility] Rx#:[id number] Output: Urine 600 200 Other: Voiding Method Urinal Urinal # Voids 3 5 - Exam On physical examination, patient appears comfortable in no apparent distress. HEAD: Normocephalic, atraumatic. EYES: No scleral icterus. No conjunctival injection. MOUTH: No lesions, tongue midline. NECK: Trachea midline, no gross abnormalities. CHEST: Clear to auscultation with no wheezing or rhonchi appreciated. HEART: Regular rate and rhythm. ABDOMEN: Soft. Bowel sounds are positive. No organomegaly. No guarding or rigidity. EXTREMITIES: No pedal edema. SKIN: No rashes, no jaundice. NEUROLOGIC: Alert and oriented x3. No focal deficits. - Labs CBC & Chem 7: 02/23/19 07:17 02/23/19 07:17 Labs: Abnormal Lab Results - Last 24 Hours (Table) 02/23/19 02/23/19 Range/Units 07:17 07:17 WBC 18.3 H (3.8-10.6) k/uL Neutrophils # 15.0 H (1.3-7.7) k/uL Carbon Dioxide 32 H (22-30) mmol/L BUN 6 L (9-20) mg/dL Creatinine 0.64 L (0.66-1.25) mg/dL AST 15 L (17-59) U/L Amylase 248 H (30-110) U/L Lipase 762 H (23-300) U/L Microbiology - Last 24 Hours (Table) 02/21/19 21:25 Urine Culture - Preliminary Urine,Clean Catch Gram Neg Bacilli Assessment and Plan (1) Gallstone pancreatitis Narrative/Plan: 48-year-old male who presented to the hospital with complaints of abdominal pain and found to have elevation in his amylase and lipase. Ultrasound of the abdomen was significant for cholelithiasis with possible cholecystitis seen. Current Visit: Yes Status: Acute Code(s): K85.10 - BILIARY ACUTE PANCREATITIS WITHOUT NECROSIS OR INFECTION SNOMED Code(s): 56448428 (2) Cholelithiasis Current Visit: No Status: Acute Code(s): K80.20 - CALCULUS OF GALLBLADDER W/O CHOLECYSTITIS W/O OBSTRUCTION SNOMED Code(s): 783593582 Plan: Supportive care Advance diet as tolerated IV fluid hydration Pain control Appreciate surgical recommendations Continue Unasyn therapy Timing of cholecystectomy to be disrupted with the surgery service No plan for ERCP with low probability of choledocholithiasis in the setting of no ductal dilation and normal liver enzymes Thank you for allowing us to participate in the care of the patient we will continue to follow
[2019-02-23] MEDS: DOXEPIN 25 MG CAP PO SCH (22:13)
[2019-02-24] MEDS: HEPARIN SODIUM,PORCINE 5,000 UNIT/ML 1 ML VIAL SQ SCH ×4 (00:13→23:52)
[2019-02-24] MEDS: GABAPENTIN 300 MG CAP PO SCH ×5 (01:45→23:43)
[2019-02-24] MEDS: ACETAMINOPHEN TAB 325 MG TAB PO PRN (01:45)
[2019-02-24] MEDS: SODIUM CHLORIDE 0.9% 1,000 ML IV SCH ×2 (03:34→18:00)
[2019-02-24] MEDS: MORPHINE SULFATE 4 MG/ML SYRINGE IV PRN ×2 (04:18→12:13)
[2019-02-24 08:05] LABS: HCT 39.6 % (39.0-53.0); HGB 13.4 gm/dL (13.0-17.5); MCH 32.4 pg (25.0-35.0); MCHC 33.7 g/dL (31.0-37.0); MCV 95.9 fL (80.0-100.0); Mean Platelet Volume 7.7; Platelet Count 228 k/uL (150-450); RBC 4.13 m/uL (4.30-5.90); RDW 13.9 % (11.5-15.5); WBC 12.9 k/uL (3.8-10.6)
[2019-02-24 08:14] LABS: ALT 34 U/L (21-72); AST 14 U/L (17-59); Albumin 3.3 g/dL (3.5-5.0); Alkaline Phosphatase 66 U/L (38-126); Anion Gap 5 mmol/L; Blood Urea Nitrogen 6 mg/dL (9-20); Calcium 8.8 mg/dL (8.4-10.2); Carbon Dioxide 32 mmol/L (22-30); Chloride 102 mmol/L (98-107); Glucose 98 mg/dL (74-99); Potassium 3.8 mmol/L (3.5-5.1); Sodium 139 mmol/L (137-145); Total Bilirubin 0.8 mg/dL (0.2-1.3); Total Protein 5.8 g/dL (6.3-8.2)
[2019-02-24] MEDS: NICOTINE 21MG/24HR PATCH TRANSDERM SCH (08:38)
[2019-02-24] MEDS: PANTOPRAZOLE 40 MG/10 ML VIAL IV SCH (08:38)
[2019-02-24] MEDS: BISACODYL 10 MG SUPP RECTAL SCH (08:39)
[2019-02-24] MEDS: AMPICILLIN-SULBACTAM 3 GM in SODIUM CHLORIDE 0.9% 100 ML IVPB SCH ×3 (09:47→23:42)
[2019-02-24] MEDS: LORATADINE 10 MG TAB PO PRN (12:18)
--- NOTE | 2019-02-24 15:36 | P.PN ---
Subjective Patient was admitted for gall stone pancreatitis. Abdominal pain improved patient is hungry patient was started on clear liquid diet advance as tolerated patient probably can undergo cholecystectomy as early as tomorrow. Patient liver enzymes are stable lipase and amylase have come down. Abdominal pain improved nausea vomiting resolved 02/24/2019 patient's abdominal pain resolved and patient will undergo cholecystectomy today Constitutional: Denied any fatigue denied any fever. Cardio vascular: denied any chest pain, palpitations Gastrointestinal denied any nausea vomiting Pulmonary: Denied any shortness of breath cough Neurologic denied any new focal deficits All inpatient medications were reviewed and appropriate changes in these m edications as dictated in the interval history and assessment and plan. Objective - Vital Signs Vital signs: Vital Signs Temp 99.1 F 02/24/19 14:19 Pulse 76 02/24/19 14:19 Resp 16 02/24/19 14:19 BP 142/95 02/24/19 14:19 Pulse Ox 94 L 02/24/19 14:19 Intake & Output 02/23/19 02/24/19 02/24/19 18:59 06:59 18:59 Intake Total 900 1000 Output Total 200 Balance 700 1000 Intake: Intake, IV Titration 900 600 Amount Ampicillin-Sulbactam 3 gm 100 In Sodium Chloride 0.9% 100 ml @ 200 mls/hr IVPB Q8HR [facility] Rx#:[id number] Sodium Chloride 0.9% 1, 800 600 000 ml @ 75 mls/hr IV . [id number] [facility] Rx#:[id number] Oral 400 Output: Urine 200 Other: Voiding Method Urinal Urinal # Voids 5 4 4 - Exam PHYSICAL EXAMINATION: GENERAL: The patient is alert and oriented x3, not in any acute distress. Well developed, well nourished. HEENT: Pupils are round and equally reacting to light. EOMI. No scleral icterus. No conjunctival pallor. Normocephalic, atraumatic. No pharyngeal erythema. No thyromegaly. CARDIOVASCULAR: S1 and S2 present. No murmurs, rubs, or gallops. PULMONARY: Chest is clear to auscultation, no wheezing or crackles. ABDOMEN: Soft, nontender, nondistended, normoactive bowel sounds. No palpable organomegaly. MUSCULOSKELETAL: No joint swelling or deformity. EXTREMITIES: No cyanosis, clubbing, or pedal edema. NEUROLOGICAL: Gross neurological examination did not reveal any focal deficits. SKIN: No rashes. - Labs CBC & Chem 7: 02/24/19 07:11 02/24/19 07:11 Labs: Abnormal Lab Results - Last 24 Hours (Table) 02/24/19 02/24/19 Range/Units 07:11 07:11 WBC 12.9 H (3.8-10.6) k/uL RBC 4.13 L (4.30-5.90) m/uL Carbon Dioxide 32 H (22-30) mmol/L BUN 6 L (9-20) mg/dL Creatinine 0.63 L (0.66-1.25) mg/dL AST 14 L (17-59) U/L Total Protein 5.8 L (6.3-8.2) g/dL Albumin 3.3 L (3.5-5.0) g/dL Microbiology - Last 24 Hours (Table) 02/21/19 21:25 Urine Culture - Final Urine,Clean Catch Klebsiella pneumoniae Assessment and Plan Plan: -Gallstone pancreatitis: Date is improved and patient will undergo cholecystectomy today. Patient does not have UTI symptoms urine showed Klebsiella pneumonia which is pansensitive patient is receiving antibiotics a nyway the form of Unasyn although my suspicion is low that patient has UTI may have asymptomatic bacteriuria. -Possibility of cholecystitis: Continue with Unasyn and IV fluids , cholecystectomy today -Hypertension -Depression -nicotine use: Counseling was provided . Patient will need pharmacologic GI and DVT prophylaxis
[2019-02-24] MEDS ORDERED: IV FLUID CONTINUATION 150 ML IV ONE (17:06)
[2019-02-24] MEDS: ONDANSETRON 4 MG/2 ML VIAL IVP PRN (17:23)
[2019-02-24] MEDS ORDERED: ROCURONIUM BROMIDE 10 MG/ML 10 ML VIAL IV ONE (18:26)
[2019-02-24] MEDS ORDERED: PROPOFOL 10 MG/ML 20 ML VIAL IV ONE (18:26)
[2019-02-24] MEDS ORDERED: fentaNYL (PF) 50 MCG/ML 2 ML AMP ONE (18:26)
[2019-02-24] MEDS ORDERED: MIDAZOLAM 2 MG/2 ML VIAL ONE (18:26)
[2019-02-24] MEDS ORDERED: LIDOCAINE 1% INJ 10MG/ML (20 ML MDV) ONE (18:26)
[2019-02-24] MEDS ORDERED: NEOSTIGMINE 1 MG/ML 10 ML VIAL ONE (18:26)
[2019-02-24] MEDS ORDERED: KETOROLAC 30 MG/ML 1 ML VIAL ONE (18:26)
[2019-02-24] MEDS ORDERED: DEXAMETHASONE SOD PHOS (MDV) 100 MG/10 ML VIAL ONE (18:26)
[2019-02-24] MEDS ORDERED: SUCCINYLCHOLINE CHLORIDE 100 MG/5 ML SYR IV ONE (18:26)
[2019-02-24] MEDS ORDERED: GLYCOPYRROLATE 0.2 MG/ML 2 ML VIAL ONE (18:26)
[2019-02-24] MEDS ORDERED: HYDROmorphone (PF) 1 MG/ML ONE (18:26)
[2019-02-24] MEDS ORDERED: LACTATED RINGERS 1,000 ML IV ONE (18:55)
[2019-02-24] MEDS ORDERED: BUPIVACAINE (PF) 0.5% 30 ML VIAL SQ ONE ×2 (19:02)
--- NOTE | 2019-02-24 19:29 | P.OP ---
Date of Procedure: 02/24/19 Preoperative Diagnosis: Gallstone pancreatitis Postoperative Diagnosis: Gallstone pancreatitis Procedure(s) Performed: Laparoscopic cholecystectomy Anesthesia: DELGADO Surgeon: Mike Calvillo Pathology: other (Gallbladder and contents) Condition: stable Disposition: floor Indications for Procedure: 49-year-old male presented to the emergency department with abdominal pain, nausea and vomiting. On workup he was found to have gallstone pancreatitis. The patient was treated with IV fluids for pancreatitis treatment and due to some possible cholecystitis, was started on antibiotics. After resolution of the pancreatitis, he presents for cholecystectomy during the same admission. The patient was explained the risks, benefits and alternatives to the procedure and did provide consent prior to attending the operating suite. Operative Findings: Cholelithiasis Description of Procedure: The patient was brought into the operating suite and placed in supine position on the operating table. Sedation was provided by anesthesia and the patient underwent endotracheal intubation. The patient was then prepped and draped in regular sterile fashion. A infra umbilical incision was made and dissection was carried to the fascia. The fascia was incised and a 12 mm trocar was placed. Pneumoperitoneum was then achieved. The patient was placed in appropriate position. 3 additional 5 mm ports were placed. 80 subxiphoid 5 mm port was placed along with 2 right upper quadrant 5 mm ports. The gallbladder was then grasped and retracted. Dissection was carried to dissect the critical view. The cystic duct and the cystic artery were clearly visualized and skeletonized. 2 clips were placed proximally and the cystic duct and one was placed distally and the cystic duct was then ligated. 2 clips were placed proximally on the cystic artery and one was placed distally and the cystic artery was then ligated. Electrocautery was then used to dissect the gallbladder from the gallbladder fossa. Hemostasis was maintained. The gallbladder was then placed in an Endo Catch bag and removed from the abdomen from the infra umbilical incision site. Irrigation was then used in the right upper quadrant and suctioned. Hemostasis was maintained. Pneumoperitoneum was released and all trochars removed from the abdomen. The periumbilical incision site was then closed with a [id number] 0 Vicryl suture in the fascial layer. All skin incisions were then closed with 4-0 Vicryl subcuticular suture. Sterile dressing was applied. The patient was awakened in the operating suite and taken to postanesthesia care unit in stable condition.
[2019-02-24] MEDS: DOXEPIN 25 MG CAP PO SCH (20:57)
[2019-02-25] MEDS: HYDROcodone/APAP 5-325MG 1 EACH TAB PO PRN ×2 (05:22→11:59)
[2019-02-25] MEDS: GABAPENTIN 300 MG CAP PO SCH ×2 (05:22→11:59)
[2019-02-25] MEDS: SODIUM CHLORIDE 0.9% 1,000 ML IV SCH (05:24)
[2019-02-25] MEDS: AMPICILLIN-SULBACTAM 3 GM in SODIUM CHLORIDE 0.9% 100 ML IVPB SCH (07:16)
[2019-02-25] MEDS: NICOTINE 21MG/24HR PATCH TRANSDERM SCH (07:17)
[2019-02-25] MEDS: BISACODYL 10 MG SUPP RECTAL SCH (07:17)
[2019-02-25] MEDS: PANTOPRAZOLE 40 MG/10 ML VIAL IV SCH (07:17)
[2019-02-25] MEDS: HEPARIN SODIUM,PORCINE 5,000 UNIT/ML 1 ML VIAL SQ SCH (07:17)
[2019-02-25 08:01] LABS: Basophils % (A) 0 %; Eosinophils # (A) 0.1 k/uL (0-0.7); Eosinophils % (A) 1 %; HCT 40.2 % (39.0-53.0); HGB 13.3 gm/dL (13.0-17.5); Lymphocytes # (A) 1.3 k/uL (1.0-4.8); Lymphocytes % (A) 14 %; MCH 32.1 pg (25.0-35.0); MCV 97.3 fL (80.0-100.0); Mean Platelet Volume 7.8; Monocytes # (A) 0.3 k/uL (0-1.0); Monocytes % (A) 3 %; Neutrophils # (A) 7.8 k/uL (1.3-7.7); Neutrophils % (A) 82 %; Platelet Count 274 k/uL (150-450); RBC 4.13 m/uL (4.30-5.90); RDW 13.8 % (11.5-15.5); WBC 9.5 k/uL (3.8-10.6)
[2019-02-25 08:13] LABS: ALT 66 U/L (21-72); AST 61 U/L (17-59); Albumin 3.4 g/dL (3.5-5.0); Alkaline Phosphatase 81 U/L (38-126); Anion Gap 7 mmol/L; Blood Urea Nitrogen 15 mg/dL (9-20); Calcium 8.7 mg/dL (8.4-10.2); Carbon Dioxide 30 mmol/L (22-30); Chloride 101 mmol/L (98-107); Glucose 112 mg/dL (74-99); Sodium 138 mmol/L (137-145); Total Bilirubin 0.8 mg/dL (0.2-1.3)
[2019-02-25 08:36] VITALS: BP 113/69; PULSE 80; RESP 16; TEMP 99
[2019-02-25] MEDS: LORATADINE 10 MG TAB PO PRN (12:01)
--- NOTE | 2019-02-25 12:44 | P.DS ---
Providers Date of admission: 02/21/19 22:54 Attending physician: Poncho Patel Consults: 02/21/19 22:53 Consult Physician Routine Consulting Provider: Mike Calvillo Consult Reason/Comments: gallstone pancreatitis Do you want consulting provider notified?: Yes Primary care physician: Ellie Segura [facility] Course: Patient was admitted for gall stone pancreatitis. Abdominal pain improved patient is hungry patient was started on clear liquid diet advance as tolerated patient probably can undergo cholecystectomy as early as tomorrow. Patient liver enzymes are stable lipase and amylase have come do wn. Abdominal pain improved nausea vomiting resolved 02/24/2019 patient's abdominal pain resolved and patient will undergo cholecystectomy today. 02/25/2019 Patient had a cholecystectomy yesterday patient did move his bowel doing clinical available will be discharged today. Patient appears to have cholelithiasis. I do not believe patient will require antibiotics regarding UTI perspective as patient has asymptomatic bacteriuria and patient received the 4 days of antibiotics already. I will leave the decision of continuing antibiotics for his gallbladder to surgery. PHYSICAL EXAMINATION: GENERAL: The patient is alert and oriented x3, not in any acute distress. Well developed, well nourished. HEENT: Pupils are round and equally reacting to light. EOMI. No scleral icterus. No conjunctival pallor. Normocephalic, atraumatic. No pharyngeal erythema. No thyromegaly. CARDIOVASCULAR: S1 and S2 present. No murmurs, rubs, or gallops. PULMONARY: Chest is clear to auscultation, no wheezing or crackles. ABDOMEN: Soft, nontender, nondistended, normoactive bowel sounds. No palpable organomegaly. MUSCULOSKELETAL: No joint swelling or deformity. EXTREMITIES: No cyanosis, clubbing, or pedal edema. NEUROLOGICAL: Gross neurological examination did not reveal any focal deficits. SKIN: No rashes. Assessment and Plan Plan: -Gallstone pancreatitis: Improved and patient is status post cholecystectomy -Possibility of cholecystitis: Appears to have cholelithiasis and cholecystitis -Hypertension -Depression -nicotine use: Counseling was provided . Patient Condition at Discharge: Fair Plan - Discharge Summary New Discharge Prescriptions: New Omeprazole [PriLOSEC] 40 mg PO TRAVIS-ABBEYKFST #14 capsule. Continue Gabapentin [Neurontin] 600 mg PO QID Lidocaine 5% Ointment 1 applic TOPICAL DAILY PRN PRN Reason: Pain HYDROcodone/APAP 10-325MG [[place] 10-325] 1 tab PO Q6H PRN #20 tab PRN Reason: Pain Acetaminophen Tab [Tylenol] 500 mg PO Q6H Simethicone [Gas-X] 125 mg PO BID PRN PRN Reason: GAS Doxepin HCl 50 mg PO HS Ibuprofen [Motrin Ib] 200 mg PO Q6H PRN PRN Reason: Pain Discharge Medication List Gabapentin [Neurontin] 600 mg PO QID 10/20/15 [History] Lidocaine 5% Ointment 1 applic TOPICAL DAILY PRN 10/20/15 [History] HYDROcodone/APAP 10-325MG [[place] 10-325] 1 tab PO Q6H PRN #20 tab 10/23/15 [Rx] Acetaminophen Tab [Tylenol] 500 mg PO Q6H 02/21/19 [History] Doxepin HCl 50 mg PO HS 02/21/19 [History] Ibuprofen [Motrin Ib] 200 mg PO Q6H PRN 02/21/19 [History] Simethicone [Gas-X] 125 mg PO BID PRN 02/21/19 [History] Omeprazole [PriLOSEC] 40 mg PO AC-BRKFST #14 capsule. 02/25/19 [Rx] Follow up Appointment(s)/Referral(s): Araseli Argueta MD [Primary Care Provider] - 03/04/19 2:40 pm Mike Calvillo DO [Doctor of Osteopathic Medicine] - 03/12/19 9:15 am Patient Instructions/Handouts: Laparoscopic Cholecystectomy (DC) Discharge Disposition: HOME SELF-CARE
--- NOTE | 2019-02-25 13:14 | P.PN ---
Subjective Progress Note Date: 02/25/19 Patient seen and examined at bedside. Tolerating diet. States abdominal pain is controlled. Requesting discharge. Objective - Vital Signs Vital signs: Vital Signs Temp 99.0 F 02/25/19 08:02 Pulse 80 02/25/19 08:02 Resp 16 02/25/19 08:02 BP 113/69 02/25/19 08:02 Pulse Ox 94 L 02/25/19 08:02 Intake & Output 02/24/19 02/25/19 02/25/19 18:59 06:59 18:59 Intake Total 500 600 Output Total 405 Balance 500 195 Intake: IV 500 200 Oral 400 Output: Urine 400 Estimated Blood Loss 5 Other: Voiding Method Urinal Urinal # Voids 1 1 1 # Bowel Movements 1 - Constitutional General appearance: Present: cooperative, no acute distress - EENT Eyes: Present: PERRLA - Gastrointestinal Gastrointestinal Comment(s): Soft, appropriate tenderness, nondistended, no rebound, no guarding, incision sites are clean, dry and intact - Psychiatric Psychiatric: Present: A&O x's 3 - Labs CBC & Chem 7: 02/25/19 07:37 02/25/19 07:37 Labs: Abnormal Lab Results - Last 24 Hours (Table) 02/25/19 02/25/19 Range/Units 07:37 07:37 RBC 4.13 L (4.30-5.90) m/uL Neutrophils # 7.8 H (1.3-7.7) k/uL Creatinine 0.62 L (0.66-1.25) mg/dL Glucose 112 H (74-99) mg/dL AST 61 H (17-59) U/L Total Protein 6.0 L (6.3-8.2) g/dL Albumin 3.4 L (3.5-5.0) g/dL Microbiology - Last 24 Hours (Table) 02/21/19 21:25 Urine Culture - Final Urine,Clean Catch Klebsiella pneumoniae Assessment and Plan (1) Gallstone pancreatitis Narrative/Plan: Postoperative day #1 from laparoscopic cholecystectomy - Recommend soft diet with low-fat and no fried foods - Surgically stable for discharge, follow up with me in 2 weeks - Increase activity as tolerated - No lifting greater than 20 pounds for 2 weeks Current Visit: Yes Status: Acute Code(s): K85.10 - BILIARY ACUTE PANCREATITIS WITHOUT NECROSIS OR INFECTION SNOMED Code(s): 69599334
[2019-02-26] MEDS ORDERED: PANTOPRAZOLE 40 MG TABLET PO SCH (09:00)
== END 2019-02-25 14:23 | disposition home or self-care (01) | DRG 418 ==
LOC: EC 19:20 → 4SSUR 22:54
PROVIDERS: ADMIT Hospitalist; ATTEND Hospitalist
PROC: 0FT44ZZ Resection of Gallbladder, Percutaneous Endoscopic Approach (ICD-10-PCS; principal; 2019-02-24 18:30)
DX: K85.10 Biliary acute pancreatitis without necrosis or infection (principal); K80.10 Calculus of gallbladder with chronic cholecystitis without obstruction; G62.9 Polyneuropathy, unspecified; R82.71 Bacteriuria; I10 Essential (primary) hypertension; G89.29 Other chronic pain; F32.9 Major depressive disorder, single episode, unspecified; F41.9 Anxiety disorder, unspecified; F10.21 Alcohol dependence, in remission; F17.210 Nicotine dependence, cigarettes, uncomplicated; Z71.6 Tobacco abuse counseling; Z98.890 Other specified postprocedural states; Z79.899 Other long term (current) drug therapy; Z86.73 Personal history of transient ischemic attack (TIA), and cerebral infarction without residual deficits; Z82.49 Family history of ischemic heart disease and other diseases of the circulatory system
CPT/HCPCS: 36415; 74018; 76700; 80053; 81001; 82150; 83690; 85025; 85027; 87077; 87086; 87186; 88304; 96361; 96374; 96375; 96376; 99285

== ENCOUNTER 2019-10-27 05:38 | Inpatient (IN) | payer MEDICARE, OTHER ==
[2019-10-27] MEDS ORDERED: ONDANSETRON 4 MG/2 ML VIAL IVP STA (06:15)
[2019-10-27] MEDS ORDERED: SODIUM CHLORIDE 0.9% 1,000 ML IV STA (06:15)
[2019-10-27] MEDS ORDERED: MORPHINE SULFATE 2 MG/ML SYRINGE IVP STA (06:15)
--- NOTE | 2019-10-27 06:18 | ED ---
Abdominal Pain HPI - General Chief Complaint: Abdominal Pain Stated Complaint: Abd Pain Time Seen by Provider: 10/27/19 06:09 Source: patient Mode of arrival: ambulatory Limitations: no limitations - History of Present Illness Initial Comments: 49-year-old male patient presents to the emergency department today for evaluation of abdominal pain. Patient states he is having pain across his entire abdomen, mostly in the upper region. He states he is having some nausea but denies vomiting. He has not had a bowel movement since before . States he feels the urge to go but is unable to pass stool. He is reporting chills with no documented fever. He is reporting radiating pain to his back. Denies any difficulty with urination. Has had cholecystectomy in the past but no other abdominal surgeries. Patient denies any recent rash, shortness breath, chest pain, numbness, tingling, dizziness, weakness, hematuria, dysuria, urinary urgency, urinary frequency, headache, visual changes, or any other complaints. - Related Data Home Medications Medication Instructions Recorded Confirmed Gabapentin [Neurontin] 600 mg PO QID 10/20/15 02/21/19 Lidocaine 5% Ointment 1 applic TOPICAL DAILY PRN 10/20/15 02/21/19 Acetaminophen Tab [Tylenol] 500 mg PO Q6H 02/21/19 02/21/19 Doxepin HCl 50 mg PO HS 02/21/19 02/21/19 Ibuprofen [Motrin Ib] 200 mg PO Q6H PRN 02/21/19 02/21/19 Simethicone [Gas-X] 125 mg PO BID PRN 02/21/19 02/21/19 Previous Rx's Medication Instructions Recorded HYDROcodone/APAP 10-325MG [[place] 1 tab PO Q6H PRN #20 tab 10/23/15 10-325] Omeprazole [PriLOSEC] 40 mg PO LORRIE #14 capsule. 02/25/19 Allergies Allergy/AdvReac Type Severity Reaction Status Date / Time No Known Allergies Allergy Verified 10/27/19 05:46 Review of Systems ROS Statement: Those systems with pertinent positive or pertinent negative responses have been documented in the HPI. ROS Other: All systems not noted in ROS Statement are negative. Past Medical History Past Medical History: CVA/TIA, Hypertension, Neurologic Disorder Additional Past Medical History / Comment(s): TIA- when child, Neuropathy, recovering alcoholic, History of Any Multi-Drug Resistant Organisms: None Reported Past Surgical History: Cholecystectomy, Orthopedic Surgery Additional Past Surgical History / Comment(s): left ankle tendon repair, left index finger repair from a table saw accident, epidural injections, Past Anesthesia/Blood Transfusion Reactions: No Reported Reaction Additional Past Anesthesia/Blood Transfusion Reaction / Comment(s): Never had blood transfusion Past Psychological History: Anxiety, Depression Smoking Status: Current every day smoker Past Alcohol Use History: Abuse Past Drug Use History: None Reported - Past Family History Father History Unknown: Yes Family Medical History: Unable to Obtain Additional Family Medical History / Comment(s): Patient states that both his mother and father alive but he does not know any of their medical history. Patient also has one sister that he knows is overweight but otherwise does not know her medical history. Mother Additional Family Medical History / Comment(s): Had cardiac stent General Exam Limitations: no limitations General appearance: alert, in no apparent distress, other (This is a well- developed, well-nourished adult male patient in no acute distress. Vital signs upon presentation are temperature 98.3F, pulse 75, respirations 16, blood pressure 156/94, pulse ox 99% on room air.) Eye exam: Present: normal appearance, PERRL, EOMI. Absent: scleral icterus, conjunctival injection, periorbital swelling ENT exam: Present: normal exam, normal oropharynx, mucous membranes moist Respiratory exam: Present: normal lung sounds bilaterally. Absent: respiratory distress, wheezes, rales, rhonchi, stridor Cardiovascular Exam: Present: regular rate, normal rhythm, normal heart sounds. Absent: systolic murmur, diastolic murmur, rubs, gallop, clicks GI/Abdominal exam: Present: soft, tenderness (Generalized tenderness mostly in the left upper quadrant and epigastric region), normal bowel sounds. Absent: distended, guarding, rebound, rigid Neurological exam: Present: alert, oriented X3, CN II-XII intact Psychiatric exam: Present: normal affect, normal mood Skin exam: Present: warm, dry, intact, normal color. Absent: rash Course Vital Signs 10/27/19 05:44 Temperature 98.3 F Pulse Rate 75 Respiratory 16 Rate Blood Pressure 156/94 O2 Sat by Pulse 99 Oximetry Medical Decision Making - Medical Decision Making 49-year-old male patient presents to the emergency department today for evaluation of upper abdominal pain and bilateral flank pain. Physical examination did reveal midepigastric left upper quadrant tenderness. No CVA tenderness. Labs reviewed and did reveal leukocytosis with white blood cell count of 18,000. Lipase is elevated at 3900. The patient does have a history of alcohol abuse. We did give 2 L of normal saline. Pain medications which did improve symptoms. He'll be admitted to the hospital for further evaluation. Will order computed tomography scan to rule out any other etiologies causing symptoms. - Lab Data Result diagrams: 10/27/19 06:22 10/27/19 06:22 Lab Results 10/27/19 10/27/19 10/27/19 Range/Units 06:22 06:22 06:22 WBC 18.8 H (3.8-10.6) k/uL RBC 4.72 (4.30-5.90) m/uL Hgb 15.6 (13.0-17.5) gm/dL Hct 46.4 (39.0-53.0) % MCV 98.3 (80.0-100.0) fL MCH 33.0 (25.0-35.0) pg MCHC 33.6 (31.0-37.0) g/dL RDW 13.9 (11.5-15.5) % Plt Count 284 (150-450) k/uL Neutrophils % 91 % Lymphocytes % 5 % Monocytes % 3 % Eosinophils % 1 % Basophils % 0 % Neutrophils # 17.1 H (1.3-7.7) k/uL Lymphocytes # 0.9 L (1.0-4.8) k/uL Monocytes # 0.6 (0-1.0) k/uL Eosinophils # 0.1 (0-0.7) k/uL Basophils # 0.0 (0-0.2) k/uL Sodium 140 (137-145) mmol/L Potassium 4.2 (3.5-5.1) mmol/L Chloride 101 (98-107) mmol/L Carbon Dioxide 27 (22-30) mmol/L Anion Gap 12 mmol/L BUN 5 L (9-20) mg/dL Creatinine 0.77 (0.66-1.25) mg/dL Est GFR (CKD-EPI)AfAm >90 (>60 ml/min/1.73 sqM) Est GFR (CKD-EPI)NonAf >90 (>60 ml/min/1.73 sqM) Glucose 134 H (74-99) mg/dL Plasma Lactic Acid Christian 2.5 H* (0.7-2.0) mmol/L Calcium 9.8 (8.4-10.2) mg/dL Total Bilirubin 0.4 (0.2-1.3) mg/dL AST 27 (17-59) U/L ALT 32 (4-49) U/L Alkaline Phosphatase 99 (38-126) U/L Total Protein 7.7 (6.3-8.2) g/dL Albumin 4.7 (3.5-5.0) g/dL Amylase 498 H* (30-110) U/L Lipase 3943 H (23-300) U/L Urine Color Urine Appearance (Clear) Urine pH (5.0-8.0) Ur Specific [place] (1.001-1.035) Urine Protein (Negative) Urine Glucose (UA) (Negative) Urine Ketones (Negative) Urine Blood (Negative) Urine Nitrite (Negative) Urine Bilirubin (Negative) Urine Urobilinogen (<2.0) mg/dL Ur Leukocyte Esterase (Negative) Urine RBC (0-5) /hpf Urine WBC (0-5) /hpf Ur Squamous Epith Cells (0-4) /hpf Urine Bacteria (None) /hpf Urine Mucus (None) /hpf 10/27/19 Range/Units 06:48 WBC (3.8-10.6) k/uL RBC (4.30-5.90) m/uL Hgb (13.0-17.5) gm/dL Hct (39.0-53.0) % MCV (80.0-100.0) fL MCH (25.0-35.0) pg MCHC (31.0-37.0) g/dL RDW (11.5-15.5) % Plt Count (150-450) k/uL Neutrophils % % Lymphocytes % % Monocytes % % Eosinophils % % Basophils % % Neutrophils # (1.3-7.7) k/uL Lymphocytes # (1.0-4.8) k/uL Monocytes # (0-1.0) k/uL Eosinophils # (0-0.7) k/uL Basophils # (0-0.2) k/uL Sodium (137-145) mmol/L Potassium (3.5-5.1) mmol/L Chloride (98-107) mmol/L Carbon Dioxide (22-30) mmol/L Anion Gap mmol/L BUN (9-20) mg/dL Creatinine (0.66-1.25) mg/dL Est GFR (CKD-EPI)AfAm (>60 ml/min/1.73 sqM) Est GFR (CKD-EPI)NonAf (>60 ml/min/1.73 sqM) Glucose (74-99) mg/dL Plasma Lactic Acid Christian (0.7-2.0) mmol/L Calcium (8.4-10.2) mg/dL Total Bilirubin (0.2-1.3) mg/dL AST (17-59) U/L ALT (4-49) U/L Alkaline Phosphatase (38-126) U/L Total Protein (6.3-8.2) g/dL Albumin (3.5-5.0) g/dL Amylase (30-110) U/L Lipase (23-300) U/L Urine Color Yellow Urine Appearance Clear (Clear) Urine pH 5.0 (5.0-8.0) Ur Specific [place] 1.016 (1.001-1.035) Urine Protein Trace H (Negative) Urine Glucose (UA) Negative (Negative) Urine Ketones Negative (Negative) Urine Blood Trace H (Negative) Urine Nitrite Positive (Negative) Urine Bilirubin Negative (Negative) Urine Urobilinogen <2.0 (<2.0) mg/dL Ur Leukocyte Esterase Small H (Negative) Urine RBC 1 (0-5) /hpf Urine WBC 13 H (0-5) /hpf Ur Squamous Epith Cells <1 (0-4) /hpf Urine Bacteria Many H (None) /hpf Urine Mucus Rare H (None) /hpf - Radiology Data Radiology results: report reviewed, image reviewed KUB x-ray was obtained. Report was reviewed in its entirety. Impression by Dr. Fregoso shows nonobstructive bowel gas pattern. Disposition Clinical Impression: Acute pancreatitis, Urinary tract infection Disposition: ADMITTED IP TO THIS [facility] Condition: Serious Referrals: Araseli Argueta MD [Primary Care Provider] - 1-2 days Decision to Admit Reason: Admit from EC Decision Date: 10/27/19 Decision Time: 08:45
[2019-10-27 06:57] LABS: Basophils % (A) 0 %; Eosinophils # (A) 0.1 k/uL (0-0.7); Eosinophils % (A) 1 %; HCT 46.4 % (39.0-53.0); HGB 15.6 gm/dL (13.0-17.5); Lymphocytes # (A) 0.9 k/uL (1.0-4.8); Lymphocytes % (A) 5 %; MCHC 33.6 g/dL (31.0-37.0); MCV 98.3 fL (80.0-100.0); Mean Platelet Volume 8.4; Monocytes # (A) 0.6 k/uL (0-1.0); Monocytes % (A) 3 %; Neutrophils # (A) 17.1 k/uL (1.3-7.7); Neutrophils % (A) 91 %; Platelet Count 284 k/uL (150-450); RBC 4.72 m/uL (4.30-5.90); RDW 13.9 % (11.5-15.5); WBC 18.8 k/uL (3.8-10.6)
--- NOTE | 2019-10-27 07:14 | XR ---
EXAMINATION TYPE: XR KUB DATE OF EXAM: 10/27/2019 6:56 AM CLINICAL HISTORY: Abdominal pain TECHNIQUE: Single supine KUB image of the abdomen is obtained. COMPARISON: 02/21/2019. FINDINGS: Scattered gas is seen in nondilated small bowel loops. Gas and fecal material is seen in no ndilated colon. There is no abnormal calcification appreciated. The osseous structures are intact. Ch olecystectomy clips are present. Again incidentally vas deferens calcifications are seen. IMPRESSION: Nonobstructive bowel gas pattern.
[2019-10-27 07:28] LABS: ALT 32 U/L (4-49); AST 27 U/L (17-59); African American GFR (CKD) >90 (>60 ml/min/1.73 sqM); Albumin 4.7 g/dL (3.5-5.0); Alkaline Phosphatase 99 U/L (38-126); Anion Gap 12 mmol/L; Blood Urea Nitrogen 5 mg/dL (9-20); Calcium 9.8 mg/dL (8.4-10.2); Carbon Dioxide 27 mmol/L (22-30); Chloride 101 mmol/L (98-107); Glucose 134 mg/dL (74-99); Non-African American GFR(CKD) >90 (>60 ml/min/1.73 sqM); Potassium 4.2 mmol/L (3.5-5.1); Sodium 140 mmol/L (137-145); Total Bilirubin 0.4 mg/dL (0.2-1.3); Total Protein 7.7 g/dL (6.3-8.2)
[2019-10-27 07:32] LABS: Appearance,Urine Clear (Clear); Bacteria,Urine Many /hpf; Bilirubin,Urine Negative (Negative); Blood,Urine Trace (Negative); Color,Urine Yellow; Glucose,Urine (UA) Negative (Negative); Ketones,Urine Negative (Negative); Leukocyte Esterase,Urine Small (Negative); Mucus,Urine Rare /hpf; Nitrite,Urine Positive (Negative); Protein,Urine Trace (Negative); RBC,Urine 1 /hpf (0-5); Specific Gravity,Urine 1.016 (1.001-1.035); Squamous Epithelial Cell,Urine <1 /hpf (0-4); Urobilinogen,Urine <2.0 mg/dL (<2.0); WBC,Urine 13 /hpf (0-5)
[2019-10-27 07:44] LABS: Amylase 498 U/L (30-110)
[2019-10-27] MEDS ORDERED: SODIUM CHLORIDE 0.9% 1,000 ML IV ONE (08:28)
[2019-10-27] MEDS ORDERED: NALOXONE 0.4 MG/ML 1 ML VIAL IV PRN (08:41)
[2019-10-27] MEDS: SODIUM CHLORIDE 0.9% 1,000 ML IV SCH ×2 (09:03→21:30)
[2019-10-27] MEDS: MORPHINE SULFATE 4 MG/ML SYRINGE IV PRN ×4 (09:04→21:48)
--- NOTE | 2019-10-27 10:11 | CT ---
EXAMINATION TYPE: CT abdomen pelvis w con DATE OF EXAM: 10/27/2019 COMPARISON: Complete abdominal ultrasound February 21, 2019. Abdominal x-ray earlier today. HISTORY: Upper abdominal pain and bilateral flank pain. CT DLP: 818.4 mGycm, Automated Exposure Control for Dose Reduction was Utilized. CONTRAST: CT scan of the abdomen and pelvis is performed without oral but with IV Contrast, patient injected wi th 100 mL of Isovue 300. FINDINGS: LUNG BASES: For negative atelectasis both bases. LIVER/GB: Cholecystectomy changes are now present. PANCREAS: Pancreas is overall normal in size. There is slight fullness inferior head of pancreas Ther e is [id number] ill-defined fluid and fat stranding surrounding entire gland. No well-formed fluid collection is seen. Some overall heterogeneity with no definitive areas of nonenhancement ident ified. No free air. SPLEEN: No significant abnormality is seen. ADRENALS: No significant abnormality is seen. KIDNEYS: Symmetric cortical medullary uptake and excretion without hydronephrosis seen bilaterally. BOWEL: Suboptimal evaluation without enteric contrast. Suspicious small or large bowel dilatation is seen. Mild wall thickening of stomach along greater curvature extending into antrum. Mild wall thicke adilene of jejunal loops left upper quadrant. Mild focal wall thickening of distal transverse colon near splenic flexure mild wall thickening left colon and sigmoid colon and rectum. All findings could be product of poor distention produces mild multifocal enterocolitis. PROSTATE/SEMINAL VESICLES: Prostate gland upper limits of normal in size. LYMPH NODES: No greater than 1cm abdominal or pelvic lymph nodes are appreciated. OSSEOUS STRUCTURES: No significant abnormality is seen. OTHER: No significant additional abnormality is seen. IMPRESSION: CT findings consistent with a fairly moderate to severe but uncomplicated acute pancreati tis. Clinical and lab correlation advised.
[2019-10-27] MEDS ORDERED: ACETAMINOPHEN IV (For NPO) 1,000 MG in EMPTY BAG 1 BAG IVPB PRN (15:26)
[2019-10-27] MEDS ORDERED: TEMAZEPAM 15 MG CAP PO PRN (16:00)
[2019-10-27] MEDS: PANTOPRAZOLE 40 MG/10 ML VIAL IVP SCH (16:15)
[2019-10-27] MEDS: GABAPENTIN 400 MG CAP PO SCH ×2 (17:06→20:40)
[2019-10-27] MEDS: MEROPENEM 1 GM in SODIUM CHLORIDE 0.9% 100 ML IVPB SCH ×2 (17:08→23:30)
[2019-10-27] MEDS: IPRATROPIUM 0.5 MG/2.5 ML NEBU INHALATION SCH ×2 (17:15→21:59)
--- NOTE | 2019-10-27 17:49 | HP ---
HISTORY AND PHYSICAL DATE OF SERVICE: 10/27/2019 CHIEF COMPLAINT: Abdominal pain. HISTORY OF PRESENT ILLNESS: This 49-year-old gentleman with a past medical history of multiple medical problems including CVA, TIA, history of hypertension, history of TIA, history of cholecystectomy history of anxiety and depression, history of alcohol abuse, being followed by Dr. Argueta in the outpatient is complaining of abdominal pain. The pain was situated in the lower part of the abdomen across the anterior abdomen and upper and lower part the entire abdomen and the patient also had some nausea, vomiting, and the patient admitted to [facility] for further evaluation and treatment. The patient also has some cough. The patient also complaining of some fever and chills. Further evaluation in the ER showed significantly elevated amylase at 498 and lipase is 394, indicating acute pancreatitis. Patient admitted for evaluation and treatment. Some UTI was also suspected. The patient also had an abdomen and pelvis CT scan which showed fairly moderate to severe uncomplicated acute pancreatitis noted. There was no history of any rigors. Some fever was noted. No history of any headache, loss of consciousness, seizures at this time. PAST MEDICAL HISTORY: History of CVA, TIA, hypertension, UTI, cholecystectomy, anxiety, depression. MEDICATIONS: Prior to admission home medications are: 1. Voltaren gel 2 g topically t.i.d. 2. Lidocaine ointment. 3. Flomax 0.4 q.h.s. 4. Aspirin 81 mg p.o. daily. 5. Neurontin 800 mg p.o. q.i.d. 6. [place] 10 mg q.6h p.r.n. 7. Doxepin 50 mg p.o. q.h.s. ALLERGIES: None. FAMILY HISTORY: Unobtainable. No contact with the family for the last several years. SOCIAL HISTORY: History of smoking, history of alcohol. REVIEW OF SYSTEMS: ENT No history of diminished hearing or vision. CARDIOVASCULAR No angina or palpitations. RESPIRATORY As mentioned earlier. GI As mentioned earlier. No dysuria or retention. NERVOUS No numbness or weakness. ALLERGY/IMMUNOLOGY No asthma or hayfever. MUSCULOSKELETAL As mentioned earlier. HEMATOLOGY/ONCOLOGY Negative. ENDOCRINE No history of diabetes or hypothyroidism. CONSTITUTIONAL As mentioned earlier. PSYCHIATRY As mentioned earlier. PHYSICAL EXAMINATION: Alert and oriented x3. Pulse is 80, blood pressure is 150/85, respiration 16, temperature 100.6, pulse ox 94% on room air. HEENT: Conjunctivae normal. Oral mucosa moist. NECK: No jugular venous distention. No lymph node enlargement. CARDIOVASCULAR: S1, S2. RESPIRATORY: Diminished breath sounds at the bases. A few scattered rhonchi, no crackles. ABDOMEN: Soft. Mild distention. Mild diffuse tenderness. No guarding, no rigidity. No mass palpable. No rebound tenderness. No ascites. Bowel sounds diminished. LEGS: No edema, no swelling. NERVOUS SYSTEM: Higher functions mentioned earlier. Moves all four limbs. No focal deficits. LYMPHATICS: No lymph node in neck or axilla. SKIN: No rash. JOINTS: No active deforming arthropathy. LABS: WBC 18.2, hemoglobin 15.6, plasma lactic acid 2.5. Amylase and lipase noted. ASSESSMENT: 1. Acute severe pancreatitis with possible sepsis present on admission. 2. Severe abdominal pain, intractable. 3. Acute urinary tract infection present on admission. 4. Elevated lactic acid. 5. Increased WBC. 6. History of cerebrovascular accident/transient ischemic attack. 7. Hypertension. 8. History of head injury. 9. History of peripheral neuropathy. 10.History of cholecystectomy. 11.History of degenerative joint disease. 12.History of anxiety, depression. 13.History of nicotine dependence. 14.History of ETOH. 15.FULL CODE. RECOMMENDATIONS AND DISCUSSION: In this 49-year-old gentleman who presented with multiple complex medical issues, we will monitor the patient closely, continue the current medications, continue symptomatic treatment. Exact etiology of pancreatitis is not unknown at this time. The patient's last drink was about June of 2010 according the chart. Otherwise, I would also initiate empiric antibiotics. Follow the cultures. Symptomatic treatment. GI consultation. Proton pump inhibitors. DVT prophylaxis. See orders for details. Pain medications. Prognosis guarded because of multiple complex medical issues. Further recommendations to follow. MMODL / IJN: [id number] /
[2019-10-27] MEDS: TAMSULOSIN 0.4 MG CAP.ER.24H PO SCH (20:40)
[2019-10-27] MEDS: HYDROcodone/APAP 10-325MG 1 EACH TAB PO PRN (20:40)
[2019-10-27] MEDS: HEPARIN SODIUM,PORCINE 5,000 UNIT/ML 1 ML VIAL SQ SCH (20:41)
[2019-10-27] MEDS: DOXEPIN 25 MG CAP PO SCH (20:41)
[2019-10-27] MEDS: ONDANSETRON 4 MG/2 ML VIAL IVP PRN (21:55)
[2019-10-28] MEDS: MORPHINE SULFATE 4 MG/ML SYRINGE IV PRN ×5 (03:14→23:00)
[2019-10-28] MEDS: NICOTINE 14MG/24HR PATCH TRANSDERM SCH (04:52)
[2019-10-28] MEDS: ONDANSETRON 4 MG/2 ML VIAL IVP PRN ×3 (04:52→18:58)
[2019-10-28] MEDS: SODIUM CHLORIDE 0.9% 1,000 ML IV SCH ×2 (05:22→13:30)
[2019-10-28] MEDS: IPRATROPIUM 0.5 MG/2.5 ML NEBU INHALATION SCH ×4 (07:36→22:06)
[2019-10-28 07:53] LABS: Basophils % (A) 0 %; Eosinophils # (A) 0.1 k/uL (0-0.7); Eosinophils % (A) 0 %; HGB 16.2 gm/dL (13.0-17.5); Lymphocytes # (A) 1.5 k/uL (1.0-4.8); Lymphocytes % (A) 9 %; MCH 33.5 pg (25.0-35.0); MCHC 33.8 g/dL (31.0-37.0); MCV 99.3 fL (80.0-100.0); Mean Platelet Volume 8.3; Monocytes # (A) 1.1 k/uL (0-1.0); Monocytes % (A) 6 %; Neutrophils % (A) 83 %; Platelet Count 230 k/uL (150-450); RBC 4.83 m/uL (4.30-5.90); RDW 14.2 % (11.5-15.5); WBC 16.9 k/uL (3.8-10.6)
[2019-10-28 07:56] LABS: ALT 25 U/L (4-49); AST 25 U/L (17-59); African American GFR (CKD) >90 (>60 ml/min/1.73 sqM); Alkaline Phosphatase 93 U/L (38-126); Amylase 178 U/L (30-110); Anion Gap 10 mmol/L; Blood Urea Nitrogen 6 mg/dL (9-20); Calcium 9.2 mg/dL (8.4-10.2); Carbon Dioxide 27 mmol/L (22-30); Chloride 102 mmol/L (98-107); Glucose 103 mg/dL (74-99); Non-African American GFR(CKD) >90 (>60 ml/min/1.73 sqM); Potassium 4.1 mmol/L (3.5-5.1); Sodium 139 mmol/L (137-145); Total Bilirubin 0.7 mg/dL (0.2-1.3); Total Protein 6.9 g/dL (6.3-8.2)
[2019-10-28] MEDS: GABAPENTIN 400 MG CAP PO SCH ×4 (07:59→22:48)
[2019-10-28] MEDS: HYDROcodone/APAP 10-325MG 1 EACH TAB PO PRN ×3 (08:00→18:56)
[2019-10-28] MEDS: MEROPENEM 1 GM in SODIUM CHLORIDE 0.9% 100 ML IVPB SCH ×2 (08:01→15:54)
[2019-10-28] MEDS: PANTOPRAZOLE 40 MG/10 ML VIAL IVP SCH (08:02)
[2019-10-28] MEDS: HEPARIN SODIUM,PORCINE 5,000 UNIT/ML 1 ML VIAL SQ SCH ×2 (08:03→22:48)
[2019-10-28] MEDS ORDERED: PSEUDOEPHEDRINE 30 MG TAB PO PRN (14:24)
[2019-10-28 15:12] VITALS: BMI 22.1
[2019-10-28] MEDS: DOCUSATE 100 MG CAP PO SCH (15:53)
[2019-10-28] MEDS: LIDOCAINE 2% GEL 30 ML TUBE TOPICAL PRN (18:57)
--- NOTE | 2019-10-28 19:45 | PN ---
PROGRESS NOTE DATE OF SERVICE: 10/28/2019 This 49-year-old gentleman was admitted with acute severe pancreatitis. The patient had significant abdominal pain, present on admission. The patient also had a UTI. CT scan of the abdomen and pelvis was done which showed fairly moderate to severe acute pancreatitis. Patient was started on empiric antibiotics also. Past medical history reviewed. REVIEW OF SYSTEMS: CARDIOVASCULAR SYSTEM: No angina, palpitations. RESPIRATORY SYSTEM: As mentioned earlier. GI: As mentioned earlier. : No dysuria or retention. NERVOUS SYSTEM: No numbness, weakness. CURRENT MEDICATIONS: Reviewed. They include: 1. [place] 10 mg q.6 p.r.n. 2. Colace 100 mg b.i.d. 3. [place] 50 mg at bedtime. 4. Neurontin 800 mg daily. 5. Heparin 5000 units subcutaneously b.i.d. 6. Atrovent. 7. Meropenem 1 gram IV q.8. 8. Morphine. 9. Narcan. 10.Habitrol. 11.Zofran. 12.Protonix. 13.Sudafed. 14.Restoril. PHYSICAL EXAMINATION: Patient is alert, oriented x3. Pulse is 101, blood pressure 124/87, respirations 17, temperature 98.4, pulse ox 98% on room air. HEENT: Conjunctivae normal. NECK: No jugular venous distention. CARDIOVASCULAR SYSTEM: S1, S2 muffled. RESPIRATORY SYSTEM: Breath sounds diminished at the bases. A few scattered rhonchi. No crackles. ABDOMEN: Soft. Mild diffuse tenderness present. LEGS: No edema. No swelling. NERVOUS SYSTEM: No focal deficit. LABS: WBC 16.9. Neutrophils are 14. Sodium 139, potassium 4.1. UA noted. Urine culture showed Gram-negative bacilli. ASSESSMENT: 1. Acute severe pancreatitis with possible sepsis, present on admission. 2. Acute urinary tract infection, present on admission, with Gram-negative bacilli. 3. Severe abdominal pain, intractable. 4. Elevated lactic acid. 5. Increased white count. 6. History of cerebrovascular accident, transient ischemic attack. 7. Hypertension. 8. History of head injury. 9. History of peripheral neuropathy. 10.History of cholecystectomy. 11.History of degenerative joint disease. 12.History of anxiety, depression. 13.History of nicotine dependence. 14.History of ethanol. 15.FULL CODE. RECOMMENDATIONS AND DISCUSSION: I recommend to continue current medications, continue with the monitoring, symptomatic treatment. Continue with the broad-spectrum IV antibiotics. Await the culture report. Repeat labs. Guarded prognosis because of multiple complex medical issues. Further recommendations to follow. Empiric antibiotics. MMODL / IJN: [id number] /
[2019-10-28] MEDS: DOXEPIN 25 MG CAP PO SCH (22:48)
[2019-10-28] MEDS: TAMSULOSIN 0.4 MG CAP.ER.24H PO SCH (22:48)
[2019-10-29] MEDS: SODIUM CHLORIDE 0.9% 1,000 ML IV SCH ×3 (00:30→21:30)
[2019-10-29] MEDS: MEROPENEM 1 GM in SODIUM CHLORIDE 0.9% 100 ML IVPB SCH ×3 (01:18→17:27)
[2019-10-29] MEDS: MORPHINE SULFATE 4 MG/ML SYRINGE IV PRN ×3 (04:48→21:31)
[2019-10-29] MEDS: ONDANSETRON 4 MG/2 ML VIAL IVP PRN (04:54)
[2019-10-29 07:22] LABS: Basophils % (A) 0 %; Eosinophils # (A) 0.1 k/uL (0-0.7); Eosinophils % (A) 1 %; HGB 13.6 gm/dL (13.0-17.5); Lymphocytes # (A) 1.7 k/uL (1.0-4.8); Lymphocytes % (A) 15 %; MCH 34.1 pg (25.0-35.0); MCHC 34.1 g/dL (31.0-37.0); Mean Platelet Volume 8.7; Monocytes # (A) 0.9 k/uL (0-1.0); Monocytes % (A) 7 %; Neutrophils # (A) 8.9 k/uL (1.3-7.7); Neutrophils % (A) 75 %; Platelet Count 199 k/uL (150-450); RDW 14.1 % (11.5-15.5); WBC 11.7 k/uL (3.8-10.6)
[2019-10-29] MEDS: IPRATROPIUM 0.5 MG/2.5 ML NEBU INHALATION SCH ×4 (07:23→19:19)
[2019-10-29 07:32] LABS: ALT 21 U/L (4-49); AST 20 U/L (17-59); African American GFR (CKD) >90 (>60 ml/min/1.73 sqM); Albumin 3.4 g/dL (3.5-5.0); Alkaline Phosphatase 82 U/L (38-126); Amylase 47 U/L (30-110); Anion Gap 6 mmol/L; Blood Urea Nitrogen 10 mg/dL (9-20); Calcium 8.7 mg/dL (8.4-10.2); Carbon Dioxide 33 mmol/L (22-30); Chloride 99 mmol/L (98-107); Glucose 84 mg/dL (74-99); Non-African American GFR(CKD) >90 (>60 ml/min/1.73 sqM); Potassium 4.1 mmol/L (3.5-5.1); Sodium 138 mmol/L (137-145); Total Bilirubin 0.9 mg/dL (0.2-1.3); Total Protein 6.1 g/dL (6.3-8.2)
[2019-10-29] MEDS: GABAPENTIN 400 MG CAP PO SCH ×4 (08:26→21:29)
[2019-10-29] MEDS: HEPARIN SODIUM,PORCINE 5,000 UNIT/ML 1 ML VIAL SQ SCH ×2 (08:26→21:28)
[2019-10-29] MEDS: PANTOPRAZOLE 40 MG TABLET PO SCH (08:26)
[2019-10-29] MEDS: NICOTINE 14MG/24HR PATCH TRANSDERM SCH (08:26)
[2019-10-29] MEDS: DOCUSATE 100 MG CAP PO SCH (17:28)
[2019-10-29] MEDS: HYDROcodone/APAP 10-325MG 1 EACH TAB PO PRN (17:36)
[2019-10-29] MEDS: DOXEPIN 25 MG CAP PO SCH (21:29)
[2019-10-29] MEDS: TAMSULOSIN 0.4 MG CAP.ER.24H PO SCH (21:30)
--- NOTE | 2019-10-30 00:33 | PN ---
PROGRESS NOTE DATE OF SERVICE: 10/29/2019 This 49-year-old gentleman admitted with significant pancreatitis, being closely monitored. Patient also has a UTI also. The culture showed Klebsiella pneumonia which is poly sensitive. The patient is currently on meropenem. No chest pain. No palpitations. No fever. EXAM: Alert and oriented x3. Pulse is 98, blood pressure 130/76 respiration 12, temperature 99.2, pulse ox, 94% on room air. HEENT: Conjunctivae normal. Oral mucosa moist. NECK: No jugular venous distention. No lymph node enlargement. CARDIOVASCULAR: S1, S2. RESPIRATORY: Diminished breath sounds at the bases. A few scattered rhonchi, no crackles. ABDOMEN: Soft. Mild diffuse discomfort on the upper abdomen. No mass palpable. LEGS: No edema, no swelling. NERVOUS SYSTEM: No focal deficits. LABS: WBC 11.2, hemoglobin 13.6, sodium 130, potassium 4.1. Other labs are noted. Lipase noted. ASSESSMENT: 1. Acute severe pancreatitis with possible sepsis present on admission. 2. Acute urinary tract infection present on admission with Klebsiella pneumonia. 3. Severe abdominal pain, intractable. 4. Elevated lactic acid, present on admission. 5. Increased WBC. 6. History of cerebrovascular accident/transient ischemic attack. 7. Hypertension. 8. History of head injury. 9. History of peripheral neuropathy. 10.History of cholecystectomy. 11.History of degenerative joint disease. 12.Anxiety, depression. 13.History of nicotine dependence. 14.History of ETOH. 15.FULL CODE. RECOMMENDATIONS AND DISCUSSION: Recommend to continue current medications, continue to monitor, continue symptomatic treatment. Otherwise, at this time continue the antibiotics. Advance diet. Repeat labs. Guarded prognosis because of multiple complex medical issues. Further recommendations to follow. MMODL / IJN: [id number] /
[2019-10-30] MEDS: MEROPENEM 1 GM in SODIUM CHLORIDE 0.9% 100 ML IVPB SCH ×4 (02:10→23:48)
[2019-10-30] MEDS: MORPHINE SULFATE 4 MG/ML SYRINGE IV PRN ×5 (02:13→20:22)
[2019-10-30] MEDS: IPRATROPIUM 0.5 MG/2.5 ML NEBU INHALATION SCH ×4 (06:47→19:19)
[2019-10-30 07:12] LABS: Basophils % (A) 0 %; Eosinophils # (A) 0.1 k/uL (0-0.7); Eosinophils % (A) 2 %; HCT 39.5 % (39.0-53.0); HGB 13.2 gm/dL (13.0-17.5); Lymphocytes # (A) 1.8 k/uL (1.0-4.8); Lymphocytes % (A) 22 %; MCH 33.4 pg (25.0-35.0); MCHC 33.3 g/dL (31.0-37.0); MCV 100.3 fL (80.0-100.0); Mean Platelet Volume 8.7; Monocytes # (A) 0.5 k/uL (0-1.0); Monocytes % (A) 6 %; Neutrophils # (A) 5.7 k/uL (1.3-7.7); Neutrophils % (A) 69 %; Platelet Count 195 k/uL (150-450); RBC 3.94 m/uL (4.30-5.90); RDW 13.8 % (11.5-15.5); WBC 8.2 k/uL (3.8-10.6)
[2019-10-30] MEDS: SODIUM CHLORIDE 0.9% 1,000 ML IV SCH ×2 (07:15→16:04)
[2019-10-30 07:29] LABS: ALT 45 U/L (4-49); AST 42 U/L (17-59); African American GFR (CKD) >90 (>60 ml/min/1.73 sqM); Albumin 3.3 g/dL (3.5-5.0); Alkaline Phosphatase 84 U/L (38-126); Amylase 40 U/L (30-110); Anion Gap 6 mmol/L; Blood Urea Nitrogen 7 mg/dL (9-20); Calcium 8.7 mg/dL (8.4-10.2); Carbon Dioxide 32 mmol/L (22-30); Chloride 100 mmol/L (98-107); Glucose 119 mg/dL (74-99); Non-African American GFR(CKD) >90 (>60 ml/min/1.73 sqM); Potassium 3.5 mmol/L (3.5-5.1); Sodium 138 mmol/L (137-145); Total Bilirubin 0.7 mg/dL (0.2-1.3)
[2019-10-30] MEDS: GABAPENTIN 400 MG CAP PO SCH ×4 (08:05→22:01)
[2019-10-30] MEDS: PANTOPRAZOLE 40 MG TABLET PO SCH (08:05)
[2019-10-30] MEDS: HEPARIN SODIUM,PORCINE 5,000 UNIT/ML 1 ML VIAL SQ SCH ×2 (08:07→22:01)
[2019-10-30] MEDS: NICOTINE 14MG/24HR PATCH TRANSDERM SCH (08:08)
[2019-10-30] MEDS: HYDROcodone/APAP 10-325MG 1 EACH TAB PO PRN (10:42)
[2019-10-30] MEDS: DOCUSATE 100 MG CAP PO SCH (17:14)
[2019-10-30 20:15] VITALS: RESP 16
[2019-10-30] MEDS: DOXEPIN 25 MG CAP PO SCH (22:00)
[2019-10-30] MEDS: TAMSULOSIN 0.4 MG CAP.ER.24H PO SCH (22:01)
--- NOTE | 2019-10-31 00:14 | PN ---
PROGRESS NOTE DATE OF SERVICE: 10/30/2019 This 49-year-old gentleman who was admitted with acute severe of pancreatitis is being closely monitored. No chest pain. No palpitations. No fever. EXAM: Alert and oriented times three. Pulse 56. Blood pressure 101/64, respiration 17, temperature 98.6, pulse ox 98% on room air. HEENT: Conjunctivae normal. NECK: No JVD. CARDIOVASCULAR: S1, S2. RESPIRATORY: Breath sounds diminished in the bases. No rhonchi. No crackles. ABDOMEN is soft, nontender. No mass palpable. LEGS no edema. No swelling. Nervous System: No focal deficits. LABS: WBC 8.2, hemoglobin 13.2. The lipase is 339. ASSESSMENT: 1. Acute severe pancreatitis with possible sepsis present on admission. 2. Acute urinary tract infection present on admission with Klebsiella pneumonia. 3. Severe abdominal pain, intractable. 4. Elevated lactic acid, present on admission. 5. Increased WBC. 6. History of cerebrovascular accident, transient ischemic attack. 7. Hypertension. 8. History of head injury. 9. History of peripheral neuropathy. 10.History of cholecystectomy. 11.History of degenerative joint disease. 12.History of depression. 13.History of nicotine dependence. 14.History of ETOH. 15.FULL CODE. RECOMMENDATIONS AND DISCUSSION: Recommend to continue current medications, management and symptomatic treatment. Otherwise closely follow and advance diet. Increase ambulation. Further recommendations to follow. MMODL / IJN: [id number] /
[2019-10-31] MEDS: HYDROcodone/APAP 10-325MG 1 EACH TAB PO PRN ×2 (04:22→10:06)
[2019-10-31] MEDS: SODIUM CHLORIDE 0.9% 1,000 ML IV SCH (05:38)
[2019-10-31 07:53] VITALS: BP 126/77; PULSE 81; TEMP 98.1
[2019-10-31] MEDS: PANTOPRAZOLE 40 MG TABLET PO SCH (07:54)
[2019-10-31] MEDS: MEROPENEM 1 GM in SODIUM CHLORIDE 0.9% 100 ML IVPB SCH (07:54)
[2019-10-31] MEDS: HEPARIN SODIUM,PORCINE 5,000 UNIT/ML 1 ML VIAL SQ SCH (07:54)
[2019-10-31] MEDS: GABAPENTIN 400 MG CAP PO SCH ×2 (07:54→14:01)
[2019-10-31] MEDS: NICOTINE 14MG/24HR PATCH TRANSDERM SCH (07:55)
[2019-10-31] MEDS: IPRATROPIUM 0.5 MG/2.5 ML NEBU INHALATION SCH ×2 (08:02→12:27)
[2019-10-31] MEDS: LIDOCAINE 2% GEL 30 ML TUBE TOPICAL PRN (10:07)
--- NOTE | 2019-10-31 15:19 | P.DS ---
Providers Date of admission: 10/27/19 08:34 Expected date of discharge: 10/31/19 Attending physician: Jeff Clinton MD Primary care physician: Ellie Marx Hospital Course: Final diagnosis Acute severe pancreatitis with possible sepsis, present on admission Acute urinary tract infection, present on admission with Klebsiella pneumonia Severe abdominal pain, intractable Elevated lactic acid, present on admission Increased WBC History of CVA/TIA Hypertension History of head injury History of peripheral neuropathy History of cholecystectomy History of degenerative joint disease history of depression History of nicotine dependence history of EtOH Full code Discharge disposition Patient is being discharged in a stable condition with guarded prognosis to home and will follow-up with primary care provider Dr. Argueta upon discharge. Patient will also follow-up with Dr. Mosher gastroenterology in the outpatient setting in 1-2 weeks. Total time taken is 35 minutes. History of present illness This is a 49-year-old male who was recently admitted for acute severity of pancreatitis and was being closely monitored. During hospitalization patient showed some improvement and states that he feels much better than when he first came in. Patient states he would like to go home today. Patient's urine culture on admission showed Klebsiella pneumonia and patient was treated with meropenem for 4 days. Patient's diet has advanced and is tolerating. Patient will follow-up with Dr. Argueta upon discharge and will need repeat labs to monitor lipase. Currently patient's condition is stable and would like to go home today. Currently patient denies any chest pain, shortness of breath, or palpitations. Patient has been afebrile. Patient denies any nausea or vomiting and is eating. Patient denies any dysuria or retention. Discussed with the patient at length about slowly advancing the diet as tolerated. On exam vital signs are stable. Temp is 98.1F, pulse is 81, respirations are 16, blood pressure is 126/77, oxygen saturation is 96% on room air. Cardio S1, S2 are muffled. Respiratory system shows diminished breath sounds at the bases with no crackles or rhonchi noted. Abdomen is soft and non-tender. Nervous system shows no focal deficits. Please refer to medication reconciliation sheet for a list of medications. Patient Condition at Discharge: Stable Plan - Discharge Summary Discharge Rx Participant: No New Discharge Prescriptions: New Nicotine 14Mg/24Hr Patch [Habitrol] 1 patch TRANSDERM DAILY #14 patch Pantoprazole [Protonix] 40 mg PO DAILY 30 Days #30 tablet. Pseudoephedrine [Sudafed] 30 mg PO Q8HR PRN #12 tab PRN Reason: Nasal Congestion Continue Lidocaine 5% Ointment 1 applic TOPICAL TID PRN PRN Reason: Pain HYDROcodone/APAP 10-325MG [[place] 10-325] 1 tab PO Q6H PRN #20 tab PRN Reason: Pain Doxepin HCl 50 mg PO HS Tamsulosin HCl [Flomax] 0.4 mg PO HS Aspirin 81 mg PO DAILY Gabapentin [Neurontin] 800 mg PO QID Diclofenac Sodium Gel [Voltaren Gel] 2 gm TOPICAL TID Discharge Medication List Lidocaine 5% Ointment 1 applic TOPICAL TID PRN 10/20/15 [History] HYDROcodone/APAP 10-325MG [[place] 10-325] 1 tab PO Q6H PRN #20 tab 10/23/15 [Rx] Doxepin HCl 50 mg PO HS 02/21/19 [History] Aspirin 81 mg PO DAILY 10/27/19 [History] Diclofenac Sodium Gel [Voltaren Gel] 2 gm TOPICAL TID 10/27/19 [History] Gabapentin [Neurontin] 800 mg PO QID 10/27/19 [History] Tamsulosin HCl [Flomax] 0.4 mg PO HS 10/27/19 [History] Nicotine 14Mg/24Hr Patch [Habitrol] 1 patch TRANSDERM DAILY #14 patch 10/31/19 [Rx] Pantoprazole [Protonix] 40 mg PO DAILY 30 Days #30 tablet. 10/31/19 [Rx] Pseudoephedrine [Sudafed] 30 mg PO Q8HR PRN #12 tab 10/31/19 [Rx] Follow up Appointment(s)/Referral(s): Araseli Argueta MD [Primary Care Provider] - 11/05/19 10:30 am Jack Mosher MD [STAFF PHYSICIAN] - 1 Week Ambulatory/Diagnostic Orders: Lipase [LAB.AMB] Time Frame: 3 Days, Location: None Selected Activity/Diet/Wound Care/Special Instructions: Activity Limited until follow-up Follow-up with primary care provider upon discharge Continue to advance diet slowly as tolerated Repeat labs in 2-3 days Discharge Disposition: HOME SELF-CARE
== END 2019-10-31 14:24 | disposition home or self-care (01) | DRG 871 ==
LOC: EC 05:38 → 4SSUR 08:34
PROVIDERS: ADMIT Internal Medicine; ATTEND Internal Medicine
DX: A41.9 Sepsis, unspecified organism (principal); K85.90 Acute pancreatitis without necrosis or infection, unspecified; N39.0 Urinary tract infection, site not specified; F17.200 Nicotine dependence, unspecified, uncomplicated; F32.9 Major depressive disorder, single episode, unspecified; F41.9 Anxiety disorder, unspecified; I10 Essential (primary) hypertension; Z86.73 Personal history of transient ischemic attack (TIA), and cerebral infarction without residual deficits; Z87.828 Personal history of other (healed) physical injury and trauma; Z90.49 Acquired absence of other specified parts of digestive tract; Z79.1 Long term (current) use of non-steroidal anti-inflammatories (NSAID); Z79.891 Long term (current) use of opiate analgesic; Z79.899 Other long term (current) drug therapy; G62.9 Polyneuropathy, unspecified; M19.90 Unspecified osteoarthritis, unspecified site
CPT/HCPCS: 36415; 74018; 74177; 80053; 81001; 82150; 83605; 83690; 85025; 87040; 87077; 87086; 87186; 96361; 96365; 96367; 96375; 96376; 99285

== ENCOUNTER 2020-05-12 06:42 | Emergency (ER) | payer MEDICARE, OTHER ==
--- NOTE | 2020-05-12 07:11 | ED ---
General Adult HPI - General Chief complaint: Urogenital Stated complaint: UTI Time Seen by Provider: 05/12/20 06:45 Source: patient, EMS Mode of arrival: EMS Limitations: no limitations - History of Present Illness Initial comments: 50-year-old male with a past medical history of hypertension, CVA, pancreatitis, UTI presents to the emergency room for a chief complaint of dysuria. Patient states he has had pain with urination for the past several days. States his urine is darker than normal. Patient denies any back pain at this time. Denies any abdominal pain. Denies fevers.Patient has no other complaints at this time including shortness of breath, chest pain, abdominal pain, nausea or vomiting, headache, or visual changes. - Related Data Home Medications Medication Instructions Recorded Confirmed Lidocaine 5% Ointment 1 applic TOPICAL TID PRN 10/20/15 10/27/19 Doxepin HCl 50 mg PO HS 02/21/19 10/27/19 Aspirin 81 mg PO DAILY 10/27/19 10/27/19 Diclofenac Sodium Gel [Voltaren 2 gm TOPICAL TID 10/27/19 10/27/19 Gel] Gabapentin [Neurontin] 800 mg PO QID 10/27/19 10/27/19 Tamsulosin HCl [Flomax] 0.4 mg PO HS 10/27/19 10/27/19 Previous Rx's Medication Instructions Recorded HYDROcodone/APAP 10-325MG [[place] 1 tab PO Q6H PRN #20 tab 10/23/15 10-325] Nicotine 14Mg/24Hr Patch [Habitrol] 1 patch TRANSDERM DAILY #14 patch 10/31/19 Pantoprazole [Protonix] 40 mg PO DAILY 30 Days #30 10/31/19 tablet. Pseudoephedrine [Sudafed] 30 mg PO Q8HR PRN #12 tab 10/31/19 Allergies Allergy/AdvReac Type Severity Reaction Status Date / Time No Known Allergies Allergy Verified 10/27/19 08:52 Review of Systems ROS Statement: Those systems with pertinent positive or pertinent negative responses have been documented in the HPI. ROS Other: All systems not noted in ROS Statement are negative. Past Medical History Past Medical History: CVA/TIA, Hypertension, Neurologic Disorder Additional Past Medical History / Comment(s): TIA- when child pt believes associated with a head injury, neurpathy L ankle, regional pain disorder L ankle, gallstones/pancreatitis with surgery, UTI. History of Any Multi-Drug Resistant Organisms: None Reported Past Surgical History: Cholecystectomy, Orthopedic Surgery Additional Past Surgical History / Comment(s): left ankle ORIF repair, left index finger repair from a table saw accident, epidural injection Past Anesthesia/Blood Transfusion Reactions: No Reported Reaction Additional Past Anesthesia/Blood Transfusion Reaction / Comment(s): Never had blood transfusion Past Psychological History: Anxiety, Depression Smoking Status: Current every day smoker Past Alcohol Use History: None Reported Past Drug Use History: None Reported - Past Family History Father History Unknown: Yes Family Medical History: Unable to Obtain Additional Family Medical History / Comment(s): Pt states he hasn't had contact with his father since he was 18 yrs old. Mother Family Medical History: Coronary Artery Disease (CAD) Additional Family Medical History / Comment(s): Had cardiac stent and a tumor removed-pt does not know from where or if it was cancerous. General Exam Limitations: no limitations General appearance: alert, in no apparent distress Head exam: Present: atraumatic, normocephalic, normal inspection Eye exam: Present: normal appearance, PERRL, EOMI. Absent: scleral icterus, conjunctival injection, periorbital swelling ENT exam: Present: normal exam, mucous membranes moist Neck exam: Present: normal inspection, full ROM. Absent: tenderness, meningismus, lymphadenopathy Respiratory exam: Present: normal lung sounds bilaterally. Absent: respiratory distress, wheezes, rales, rhonchi, stridor Cardiovascular Exam: Present: regular rate, normal rhythm, normal heart sounds. Absent: systolic murmur, diastolic murmur, rubs, gallop, clicks GI/Abdominal exam: Present: soft, normal bowel sounds. Absent: distended, ten derness, guarding, rebound, rigid Back exam: Absent: CVA tenderness (R), CVA tenderness (L) Course Vital Signs 05/12/20 06:49 Temperature 98.3 F Pulse Rate 82 Respiratory 18 Rate Blood Pressure 155/105 O2 Sat by Pulse 99 Oximetry Medical Decision Making - Medical Decision Making Vitals are stable. Patient is hypertensive but will follow up with his doctor for this. He does have a history of this. Patient is well appearing. Urinalysis shows rare mucous with 5 white blood cells. This will be cultured. However at this time I do not see any blood or evidence of infection. Patient will follow up with primary care and return for any worsening symptoms. - Lab Data Lab Results 05/12/20 Range/Units 06:58 Urine Color Yellow Urine Appearance Clear (Clear) Urine pH 6.0 (5.0-8.0) Ur Specific [place] 1.028 (1.001-1.035) Urine Protein 1+ H (Negative) Urine Glucose (UA) Negative (Negative) Urine Ketones Negative (Negative) Urine Blood Negative (Negative) Urine Nitrite Negative (Negative) Urine Bilirubin Negative (Negative) Urine Urobilinogen 3.0 (<2.0) mg/dL Ur Leukocyte Esterase Negative (Negative) Urine RBC 1 (0-5) /hpf Urine WBC 5 (0-5) /hpf Ur Squamous Epith Cells 1 (0-4) /hpf Urine Mucus Rare H (None) /hpf Disposition Clinical Impression: Dysuria Disposition: HOME SELF-CARE Condition: Good Instructions (If sedation given, give patient instructions): Urinary Tract Infection in Men (ED) Additional Instructions: Please follow up on culture results. Follow up with her doctor in one to 2 days. Return to the emergency room for any worsening symptoms. Is patient prescribed a controlled substance at d/c from ED?: No Referrals: Araseli Argueta MD [Primary Care Provider] - 1-2 days Time of Disposition: 07:41
[2020-05-12 07:25] LABS: Appearance,Urine Clear (Clear); Bilirubin,Urine Negative (Negative); Blood,Urine Negative (Negative); Color,Urine Yellow; Glucose,Urine (UA) Negative (Negative); Ketones,Urine Negative (Negative); Leukocyte Esterase,Urine Negative (Negative); Mucus,Urine Rare /hpf; Nitrite,Urine Negative (Negative); Protein,Urine 1+ (Negative); RBC,Urine 1 /hpf (0-5); Specific Gravity,Urine 1.028 (1.001-1.035); Squamous Epithelial Cell,Urine 1 /hpf (0-4); WBC,Urine 5 /hpf (0-5)
[2020-05-12] MEDS ORDERED: SODIUM CHLORIDE 0.9% 1,000 ML IV STA (08:00)
[2020-05-12 08:19] LABS: Basophils # (A) 0.1 k/uL (0-0.2); Basophils % (A) 0 %; Eosinophils # (A) 0.3 k/uL (0-0.7); Eosinophils % (A) 2 %; HCT 42.8 % (39.0-53.0); HGB 14.9 gm/dL (13.0-17.5); Lymphocytes # (A) 2.8 k/uL (1.0-4.8); Lymphocytes % (A) 21 %; MCH 33.3 pg (25.0-35.0); MCHC 34.8 g/dL (31.0-37.0); MCV 95.8 fL (80.0-100.0); Mean Platelet Volume 8.2; Monocytes # (A) 0.6 k/uL (0-1.0); Monocytes % (A) 5 %; Neutrophils # (A) 9.3 k/uL (1.3-7.7); Neutrophils % (A) 70 %; Platelet Count 333 k/uL (150-450); RBC 4.47 m/uL (4.30-5.90); RDW 12.9 % (11.5-15.5); WBC 13.2 k/uL (3.8-10.6)
[2020-05-12 08:29] LABS: ALT 89 U/L (4-49); AST 35 U/L (17-59); African American GFR (CKD) >90 (>60 ml/min/1.73 sqM); Albumin 4.7 g/dL (3.5-5.0); Alkaline Phosphatase 88 U/L (38-126); Anion Gap 8 mmol/L; Blood Urea Nitrogen 14 mg/dL (9-20); Calcium 9.6 mg/dL (8.4-10.2); Carbon Dioxide 32 mmol/L (22-30); Chloride 98 mmol/L (98-107); Creatine Kinase 95 U/L (55-170); Glucose 113 mg/dL (74-99); Non-African American GFR(CKD) >90 (>60 ml/min/1.73 sqM); Sodium 138 mmol/L (137-145); Total Bilirubin 0.4 mg/dL (0.2-1.3); Total Protein 7.6 g/dL (6.3-8.2)
[2020-05-12 08:43] VITALS: BP 141/98; PULSE 78; RESP 16; TEMP 97.8
== END 2020-05-12 08:42 | disposition home or self-care (01) ==
LOC: EC 06:42
DX: R30.0 Dysuria (principal); I10 Essential (primary) hypertension; F17.200 Nicotine dependence, unspecified, uncomplicated; Z79.82 Long term (current) use of aspirin; Z79.899 Other long term (current) drug therapy; Z86.73 Personal history of transient ischemic attack (TIA), and cerebral infarction without residual deficits
CPT/HCPCS: 36415; 80053; 81001; 82550; 83690; 85025; 87086; 96360; 99284

== ENCOUNTER → 2020-12-06 | Outpatient (CLI) | payer MEDICARE, OTHER ==
--- NOTE | 2020-12-06 15:45 | NM ---
EXAMINATION TYPE: NM bone 3 phase DATE OF EXAM: 12/06/2020 COMPARISON: NONE HISTORY: Reflex sympathetic dystrophy, G90.S22 Triple phase bone scintigraphy was performed following the injection of 23.8 mCi Tc 99m MDP. Immedia te images and 3 hours post injection images acquired. FINDINGS: Increased blood flow and blood pool activity to the right lower extremity as compared to the left, so me mild uptake extending to the right foot as compared to the left on delayed images, 2 BX show some mild increased uptake in the right as compared to the left is somewhat diffuse pattern. IMPRESSION: Nonspecific findings.
== END | disposition home or self-care (01) ==
LOC: RADNMMAIN 10:44
PROVIDERS: ATTEND Internal Medicine
DX: G90.522 Complex regional pain syndrome I of left lower limb (principal)
CPT/HCPCS: 78315; A9503

== ENCOUNTER 2020-12-27 14:05 | Inpatient (IN) | payer MEDICARE, OTHER ==
[2020-12-27] MEDS ORDERED: KETOROLAC 15 MG/ML 1 ML VIAL IVP STA (14:49)
[2020-12-27] MEDS ORDERED: SODIUM CHLORIDE 0.9% 1,000 ML IV STA (14:49)
[2020-12-27] MEDS ORDERED: ONDANSETRON 4 MG/2 ML VIAL IVP STA (14:49)
[2020-12-27 15:13] LABS: Basophils % (A) 0 %; Eosinophils # (A) 0.1 k/uL (0-0.7); Eosinophils % (A) 1 %; HCT 44.9 % (39.0-53.0); HGB 15.9 gm/dL (13.0-17.5); Lymphocytes # (A) 1.4 k/uL (1.0-4.8); Lymphocytes % (A) 10 %; MCH 33.3 pg (25.0-35.0); MCHC 35.4 g/dL (31.0-37.0); MCV 94.2 fL (80.0-100.0); Monocytes # (A) 0.6 k/uL (0-1.0); Monocytes % (A) 4 %; Neutrophils % (A) 84 %; Platelet Count 266 k/uL (150-450); RBC 4.77 m/uL (4.30-5.90); RDW 13.8 % (11.5-15.5); WBC 13.2 k/uL (3.8-10.6)
--- NOTE | 2020-12-27 15:23 | ED ---
General Adult HPI - General Chief complaint: Abdominal Pain Stated complaint: ABD pain Time Seen by Provider: 12/27/20 14:10 Source: patient, RN notes reviewed, old records reviewed Mode of arrival: EMS Limitations: no limitations - History of Present Illness Initial comments: This a 50-year-old male who presents emergency department complaining of left- sided abdominal pain. Patient states it started yesterday. Patient states he vomited multiple times. Patient denies any fever chills per patient denies any diarrhea. Patient denies any chest pain palpitations difficulty breathing shortness of breath. 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 Patient denies any back pain. Patient denies any dysuria hematuria urinary frequency. Patient states she's had a cholecystectomy in the past. - Related Data Home Medications Medication Instructions Recorded Confirmed Lidocaine 5% Ointment 1 applic TOPICAL TID PRN 10/20/15 10/27/19 Doxepin HCl 50 mg PO HS 02/21/19 10/27/19 Aspirin 81 mg PO DAILY 10/27/19 10/27/19 Diclofenac Sodium Gel [Voltaren 2 gm TOPICAL TID 10/27/19 10/27/19 Gel] Gabapentin [Neurontin] 800 mg PO QID 10/27/19 10/27/19 Tamsulosin HCl [Flomax] 0.4 mg PO HS 10/27/19 10/27/19 Previous Rx's Medication Instructions Recorded HYDROcodone/APAP 10-325MG [[place] 1 tab PO Q6H PRN #20 tab 10/23/15 10-325] Nicotine 14Mg/24Hr Patch [Habitrol] 1 patch TRANSDERM DAILY #14 patch 10/31/19 Pantoprazole [Protonix] 40 mg PO DAILY 30 Days #30 10/31/19 tablet. Pseudoephedrine [Sudafed] 30 mg PO Q8HR PRN #12 tab 10/31/19 Allergies Allergy/AdvReac Type Severity Reaction Status Date / Time No Known Allergies Allergy Verified 12/27/20 14:14 Review of Systems ROS Statement: Those systems with pertinent positive or pertinent negative responses have been documented in the HPI. ROS Other: All systems not noted in ROS Statement are negative. Past Medical History Past Medical History: CVA/TIA, Hypertension, Neurologic Disorder Additional Past Medical History / Comment(s): TIA- when child pt believes associated with a head injury, neurpathy L ankle, regional pain disorder L ankle, gallstones/pancreatitis with surgery, UTI. Recent bone scan for RSD History of Any Multi-Drug Resistant Organisms: None Reported Past Surgical History: Cholecystectomy, Orthopedic Surgery Additional Past Surgical History / Comment(s): left ankle ORIF repair, left index finger repair from a table saw accident, epidural injection Past Anesthesia/Blood Transfusion Reactions: No Reported Reaction Additional Past Anesthesia/Blood Transfusion Reaction / Comment(s): Never had blood transfusion Past Psychological History: Anxiety, Depression Smoking Status: Current every day smoker Past Alcohol Use History: None Reported Past Drug Use History: None Reported - Past Family History Father History Unknown: Yes Family Medical History: Unable to Obtain Additional Family Medical History / Comment(s): Pt states he hasn't had contact with his father since he was 18 yrs old. Mother Family Medical History: Coronary Artery Disease (CAD) Additional Family Medical History / Comment(s): Had cardiac stent and a tumor removed-pt does not know from where or if it was cancerous. General Exam - General Exam Comments Initial Comments: GENERAL: Patient is well-developed and well-nourished. Patient is nontoxic and well- hydrated and is in mild distress. ENT: Neck is soft and supple. No significant lymphadenopathy is noted. Oropharynx is clear. Moist mucous membranes. Neck has full range of motion without eliciting any pain. EYES: The sclera were anicteric and conjunctiva were pink and moist. Extraocular movements were intact and pupils were equal round and reactive to light. Eyelids were unremarkable. PULMONARY: Unlabored respirations. Good breath sounds bilaterally. No audible rales rhon chi or wheezing was noted. CARDIOVASCULAR: There is a regular rate and rhythm without any murmurs gallops or rubs. ABDOMEN: Patient is soft abdomen and there is some left-sided abdominal tenderness.. SKIN: Skin is clear with no lesions or rashes and otherwise unremarkable. NEUROLOGIC: Patient is alert and oriented x3. Cranial nerves II through XII are grossly intact. Motor and sensory are also intact. Normal speech, volume and content. Symmetrical smile. MUSCULOSKELETAL: Normal extremities with adequate strength and full range of motion. No lower extremity swelling or edema. No calf tenderness. LYMPHATICS: No significant lymphadenopathy is noted PSYCHIATRIC: Normal psychiatric evaluation. Limitations: no limitations Course Vital Signs 12/27/20 12/27/20 14:11 16:44 Temperature 98.0 F Pulse Rate 75 74 Respiratory 18 18 Rate Blood Pressure 152/102 170/100 O2 Sat by Pulse 97 99 Oximetry Medical Decision Making - Medical Decision Making Computed tomography scan shows findings consistent with acute otitis. Labs verified this. I spoke with Dr. Patel he agreed to admit the patient and the patient wrote admitting orders. - Lab Data Result diagrams: 12/27/20 15:02 12/27/20 15:02 Lab Results 12/27/20 12/27/20 12/27/20 Range/Units 15:02 15:02 15:02 WBC 13.2 H (3.8-10.6) k/uL RBC 4.77 (4.30-5.90) m/uL Hgb 15.9 (13.0-17.5) gm/dL Hct 44.9 (39.0-53.0) % MCV 94.2 (80.0-100.0) fL MCH 33.3 (25.0-35.0) pg MCHC 35.4 (31.0-37.0) g/dL RDW 13.8 (11.5-15.5) % Plt Count 266 (150-450) k/uL MPV 8.0 Neutrophils % 84 % Lymphocytes % 10 % Monocytes % 4 % Eosinophils % 1 % Basophils % 0 % Neutrophils # 11.0 H (1.3-7.7) k/uL Lymphocytes # 1.4 (1.0-4.8) k/uL Monocytes # 0.6 (0-1.0) k/uL Eosinophils # 0.1 (0-0.7) k/uL Basophils # 0.0 (0-0.2) k/uL Sodium 135 L (137-145) mmol/L Potassium 3.7 (3.5-5.1) mmol/L Chloride 99 (98-107) mmol/L Carbon Dioxide 27 (22-30) mmol/L Anion Gap 9 mmol/L BUN 7 L (9-20) mg/dL Creatinine 0.63 L (0.66-1.25) mg/dL Est GFR (CKD-EPI)AfAm >90 (>60 ml/min/1.73 sqM) Est GFR (CKD-EPI)NonAf >90 (>60 ml/min/1.73 sqM) Glucose 135 H (74-99) mg/dL Plasma Lactic Acid Christian (0.7-2.0) mmol/L Calcium 9.8 (8.4-10.2) mg/dL Total Bilirubin 0.8 (0.2-1.3) mg/dL AST 44 (17-59) U/L ALT 72 H (4-49) U/L Alkaline Phosphatase 105 (38-126) U/L Total Protein 7.7 (6.3-8.2) g/dL Albumin 4.7 (3.5-5.0) g/dL Amylase 402 H* (30-110) U/L Lipase 3215 H (23-300) U/L Urine Color Yellow Urine Appearance Clear (Clear) Urine pH 6.0 (5.0-8.0) Ur Specific Walker 1.025 (1.001-1.035) Urine Protein 1+ H (Negative) Urine Glucose (UA) Negative (Negative) Urine Ketones Negative (Negative) Urine Blood Trace H (Negative) Urine Nitrite Negative (Negative) Urine Bilirubin Negative (Negative) Urine Urobilinogen 2.0 (<2.0) mg/dL Ur Leukocyte Esterase Negative (Negative) Urine RBC 1 (0-5) /hpf Urine WBC 3 (0-5) /hpf Ur Squamous Epith Cells <1 (0-4) /hpf Urine Mucus Rare H (None) /hpf 12/27/20 Range/Units 15:02 WBC (3.8-10.6) k/uL RBC (4.30-5.90) m/uL Hgb (13.0-17.5) gm/dL Hct (39.0-53.0) % MCV (80.0-100.0) fL MCH (25.0-35.0) pg MCHC (31.0-37.0) g/dL RDW (11.5-15.5) % Plt Count (150-450) k/uL MPV Neutrophils % % Lymphocytes % % Monocytes % % Eosinophils % % Basophils % % Neutrophils # (1.3-7.7) k/uL Lymphocytes # (1.0-4.8) k/uL Monocytes # (0-1.0) k/uL Eosinophils # (0-0.7) k/uL Basophils # (0-0.2) k/uL Sodium (137-145) mmol/L Potassium (3.5-5.1) mmol/L Chloride (98-107) mmol/L Carbon Dioxide (22-30) mmol/L Anion Gap mmol/L BUN (9-20) mg/dL Creatinine (0.66-1.25) mg/dL Est GFR (CKD-EPI)AfAm (>60 ml/min/1.73 sqM) Est GFR (CKD-EPI)NonAf (>60 ml/min/1.73 sqM) Glucose (74-99) mg/dL Plasma Lactic Acid Christian 1.2 (0.7-2.0) mmol/L Calcium (8.4-10.2) mg/dL Total Bilirubin (0.2-1.3) mg/dL AST (17-59) U/L ALT (4-49) U/L Alkaline Phosphatase (38-126) U/L Total Protein (6.3-8.2) g/dL Albumin (3.5-5.0) g/dL Amylase (30-110) U/L Lipase (23-300) U/L Urine Color Urine Appearance (Clear) Urine pH (5.0-8.0) Ur Specific Walker (1.001-1.035) Urine Protein (Negative) Urine Glucose (UA) (Negative) Urine Ketones (Negative) Urine Blood (Negative) Urine Nitrite (Negative) Urine Bilirubin (Negative) Urine Urobilinogen (<2.0) mg/dL Ur Leukocyte Esterase (Negative) Urine RBC (0-5) /hpf Urine WBC (0-5) /hpf Ur Squamous Epith Cells (0-4) /hpf Urine Mucus (None) /hpf Disposition Clinical Impression: Acute pancreatitis Disposition: ADMITTED IP TO THIS HOSP Referrals: Araseli Argueta MD [Primary Care Provider] - 1-2 days Time of Disposition: 16:53
[2020-12-27 15:32] LABS: ALT 72 U/L (4-49); AST 44 U/L (17-59); African American GFR (CKD) >90 (>60 ml/min/1.73 sqM); Albumin 4.7 g/dL (3.5-5.0); Alkaline Phosphatase 105 U/L (38-126); Anion Gap 9 mmol/L; Blood Urea Nitrogen 7 mg/dL (9-20); Calcium 9.8 mg/dL (8.4-10.2); Carbon Dioxide 27 mmol/L (22-30); Chloride 99 mmol/L (98-107); Glucose 135 mg/dL (74-99); Non-African American GFR(CKD) >90 (>60 ml/min/1.73 sqM); Sodium 135 mmol/L (137-145); Total Bilirubin 0.8 mg/dL (0.2-1.3); Total Protein 7.7 g/dL (6.3-8.2)
[2020-12-27 15:39] LABS: Lipase 3215 U/L (23-300)
[2020-12-27 15:49] LABS: Appearance,Urine Clear (Clear); Bilirubin,Urine Negative (Negative); Blood,Urine Trace (Negative); Color,Urine Yellow; Glucose,Urine (UA) Negative (Negative); Ketones,Urine Negative (Negative); Leukocyte Esterase,Urine Negative (Negative); Mucus,Urine Rare /hpf; Nitrite,Urine Negative (Negative); Protein,Urine 1+ (Negative); RBC,Urine 1 /hpf (0-5); Specific Gravity,Urine 1.025 (1.001-1.035); Squamous Epithelial Cell,Urine <1 /hpf (0-4); WBC,Urine 3 /hpf (0-5)
[2020-12-27 15:56] LABS: Amylase 402 U/L (30-110)
[2020-12-27 16:01] LABS: Potassium 3.7 mmol/L (3.5-5.1)
--- NOTE | 2020-12-27 16:21 | CT ---
EXAMINATION TYPE: CT abdomen pelvis w con DATE OF EXAM: 12/27/2020 COMPARISON: CT abdomen and pelvis October 27, 2019 HISTORY: Generalized pain. CT DLP: 724.7 mGycm, Automated Exposure Control for Dose Reduction was Utilized. CONTRAST: CT scan of the abdomen and pelvis is performed without oral but with IV Contrast, patient injected wi th 100 mL of Isovue 300. FINDINGS: LUNG BASES: More prominent dependent atelectasis in both bases. LIVER/GB: Cholecystectomy clips are redemonstrated. PANCREAS: Pancreas remains normal in size. There is moderate ill-defined fluid and fat stranding surr ounding entire pancreas from uncinate process to tail with new thin-walled cyst in the pancreatic nimo l measuring 1.6 x 1.0 cm axial image 25. No free air. No areas of nonenhancement clearly seen. SPLEEN: No significant abnormality is seen. ADRENALS: No significant abnormality is seen. KIDNEYS: Symmetric cortical medullary uptake and excretion without hydronephrosis seen bilaterally. BOWEL: No significant abnormality is seen. PROSTATE/SEMINAL VESICLES: Mildly enlarged prostate consistent with BPH. LYMPH NODES: No greater than 1cm abdominal or pelvic lymph nodes are appreciated. OSSEOUS STRUCTURES: No significant abnormality is seen. OTHER: Tortuous course to celiac artery at its origin redemonstrated. There is narrowing at origin wi th poststenotic dilatation, for reference sagittal image 68 and 71. Correlate for underlying celiac a rtery compression syndrome. In retrospect this was present on prior. IMPRESSION: CT findings consistent with moderate acute pancreatitis the degree of inflammatory change s slightly less prominent than the prior CT. There is new 1.6 cm pseudocyst in the pancreatic tail on current study. Correlate clinically and with pancreatic lab values.
[2020-12-27] MEDS ORDERED: SODIUM CHLORIDE 0.9% 1,000 ML IV ONE (17:04)
[2020-12-27] MEDS: HYDROmorphone 0.5 MG/0.5 ML SYRINGE IVP PRN ×2 (17:11→21:32)
[2020-12-27] MEDS: SODIUM CHLORIDE 0.9% 1,000 ML IV SCH (17:20)
[2020-12-27] MEDS ORDERED: ENALAPRILAT 1.25 MG/ML 1 ML VIAL IVP STA (19:08)
[2020-12-27] MEDS ORDERED: TEMAZEPAM 15 MG CAP PO PRN (20:52)
[2020-12-27] MEDS ORDERED: ALPRAZolam 0.25 MG TAB PO PRN (20:52)
[2020-12-27] MEDS: HEPARIN SODIUM,PORCINE 5,000 UNIT/ML 1 ML VIAL SQ SCH (21:32)
[2020-12-27] MEDS: GABAPENTIN 400 MG CAP PO SCH (21:33)
[2020-12-27] MEDS: DOXEPIN 25 MG CAP PO SCH (21:33)
[2020-12-27] MEDS: NYSTATIN 100,000 UNIT/ML SUSP 500,000 UNIT/5 ML CUP PO SCH (21:33)
[2020-12-27] MEDS: LIDOCAINE 5% OINTMENT 50 GM JAR TOPICAL SCH (21:34)
[2020-12-27] MEDS: NICOTINE 14MG/24HR PATCH TRANSDERM SCH (21:34)
[2020-12-27] MEDS: PANTOPRAZOLE 40 MG/10 ML VIAL IVP SCH ×2 (21:49)
--- NOTE | 2020-12-27 22:44 | HP ---
HISTORY AND PHYSICAL DATE OF SERVICE: 12/27/2020 CHIEF COMPLAINT: Abdominal pain. HISTORY OF PRESENT ILLNESS: This 50-year-old gentleman with a past medical history of multiple medical problems including CVA, TIA, hypertension, history of neurologic disorder, history of chronic pain, history of anxiety, depression being followed Dr. Argueta in the outpatient setting, apparently had a recent gallbladder surgery. The patient was previously admitted with acute severe pancreatitis with possible sepsis. The patient also had UTI during that time. There is no history of fever, rigors or chills. No history of headache, loss of consciousness. Patient is complaining of abdominal pain, back pain. The patient had features of severe acute pancreatitis. Patient admitted for evaluation and treatment. A CT scan of the abdomen and pelvis was also done which showed moderate acute pancreatitis with degree of inflammatory changes that is prominent. Pseudocyst formation was also noted. PAST MEDICAL HISTORY: History of CVA, TIA, hypertension, history of cholecystectomy. MEDICATIONS: Tylenol. Zestril, Flomax, lidocaine, hydrocodone, gabapentin, doxepin, aspirin. ALLERGIES: None. FAMILY HISTORY: Unable to obtain. SOCIAL HISTORY: No history of alcohol intake. No history of smoking. REVIEW OF SYSTEMS: ENT: No diminished vision. No diminished hearing. CARDIOVASCULAR: No angina. RESPIRATORY: As mentioned earlier. GI: As mentioned earlier. : No dysuria. NERVOUS SYSTEM: No numbness, weakness. ALLERGY/IMMUNOLOGY: No asthma, hayfever. MUSCULOSKELETAL: As mentioned earlier. HEMATOLOGY/ONCOLOGY: No history of anemia. ENDOCRINE: No history of diabetes or hypothyroidism. CONSTITUTIONAL: As mentioned earlier. DERMATOLOGY: Negative. RHEUMATOLOGY: Negative. PSYCHIATRY: As mentioned earlier. PHYSICAL EXAMINATION: Alert and oriented x3. Pulse 78. Blood pressure 150/92, respirations 16, temperature 98 degrees, pulse ox 97% on room air. HEENT: Conjunctivae normal. NECK: No JVD. CARDIOVASCULAR: S1, S2 muffled. RESPIRATORY SYSTEM: Breath sounds diminished at the bases. No rhonchi. No crackles. ABDOMEN: The scars of the gallbladder surgery present otherwise mild diffuse tenderness. No guarding. No rigidity. No ascites. Bowel sounds diminished. LEGS: No edema. No swelling. NERVOUS SYSTEM: Higher functions as mentioned earlier. Moves all four limbs. No focal deficits. LYMPHATICS: No lymph nodes palpable in the neck, axillae or groin. SKIN: No ulcer, no rash or bleeding. JOINTS: No active deforming arthropathy. LAB STUDIES: Hemoglobin 13.2. Sodium 135, Amylase 402. Lipase is 3215. ASSESSMENT: 1. Acute severe pancreatitis with possible sepsis, present on admission. 2. Increased WBC. 3. Severe abdominal pain. 4. Hyponatremia. 5. Increased random blood glucose. 6. Increased ALT. 7. Increased amylase, lipase. 8. History of cerebrovascular accident, transient ischemic attack. 9. History of recent cholecystectomy. 10.Hypertension. 11.History of transient ischemic attack. 12.History of head injury. 13.History of RSD. 14.History of chronic pain syndrome. 15.History of gait dysfunction. 16.History of anxiety/depression. 17.History of nicotine dependence. 18.History of alcohol abuse previously apparently. 19.FULL CODE. RECOMMENDATIONS AND DISCUSSION: In this 50-year-old gentleman who presented with multiple complex medical issues, at this time, I recommend continue the current medications, management and symptomatic treatment. Otherwise, I would also recommend to keep the patient n.p.o. except medications and IV fluids. Gastroenterology consultation. Repeat labs. I would also give empiric antibiotics. Follow the cultures. Overall prognosis guarded because of the multiple complex medical issues. Further recommendations to follow. A copy of dictation being forwarded to Dr. Argueta who is the primary physician. Home medications will be restarted once it is confirmed. See orders for details. MMODL / IJN: [id number] /
[2020-12-27] MEDS: HYDROcodone/APAP 10-325MG 1 EACH TAB PO SCH (23:00)
[2020-12-27] MEDS: MEROPENEM 2 GM in SODIUM CHLORIDE 0.9% 100 ML IVPB SCH (23:00)
[2020-12-27] MEDS: ONDANSETRON 4 MG/2 ML VIAL IVP PRN (23:04)
[2020-12-28] MEDS: HYDROmorphone 0.5 MG/0.5 ML SYRINGE IVP PRN ×5 (01:49→21:10)
[2020-12-28] MEDS: ONDANSETRON 4 MG/2 ML VIAL IVP PRN ×2 (04:46→16:26)
[2020-12-28] MEDS: NICOTINE 14MG/24HR PATCH TRANSDERM SCH (07:59)
[2020-12-28] MEDS: HYDROcodone/APAP 10-325MG 1 EACH TAB PO SCH ×3 (07:59→22:26)
[2020-12-28] MEDS: HEPARIN SODIUM,PORCINE 5,000 UNIT/ML 1 ML VIAL SQ SCH ×2 (08:00→21:10)
[2020-12-28] MEDS: NYSTATIN 100,000 UNIT/ML SUSP 500,000 UNIT/5 ML CUP PO SCH ×3 (08:00→21:11)
[2020-12-28] MEDS: PANTOPRAZOLE 40 MG/10 ML VIAL IVP SCH ×2 (08:00→21:11)
[2020-12-28] MEDS: MEROPENEM 2 GM in SODIUM CHLORIDE 0.9% 100 ML IVPB SCH ×2 (08:02→16:18)
[2020-12-28] MEDS: LIDOCAINE 5% OINTMENT 50 GM JAR TOPICAL SCH ×3 (08:02→21:11)
[2020-12-28 09:14] LABS: Basophils # (A) 0.02 X 10*3/uL (0.00-0.10); Basophils % (A) 0.2 %; Eosinophils # (A) 0.04 X 10*3/uL (0.04-0.35); Eosinophils % (A) 0.3 %; HCT 44.3 % (39.6-50.0); HGB 15.8 g/dL (13.0-17.0); Lymphocytes # (A) 2.29 X 10*3/uL (0.90-5.00); Lymphocytes % (A) 17.5 %; MCH 33.4 pg (27.0-32.0); MCHC 35.7 g/dL (32.0-37.0); MCV 93.7 fL (80.0-97.0); Mean Platelet Volume 11.3 fL (9.5-12.2); Monocytes # (A) 1.14 X 10*3/uL (0.20-1.00); Monocytes % (A) 8.7 %; Neutrophils # (A) 9.53 X 10*3/uL (1.80-7.70); Neutrophils % (A) 72.9 %; Platelet Count 302 X 10*3/uL (140-440); RBC 4.73 X 10*6/uL (4.40-5.60); RDW 13.8 % (11.5-14.5); WBC 13.07 X 10*3/uL (4.50-10.00)
[2020-12-28 09:46] LABS: African American GFR (CKD) 127.5 (60.0-200.0); Albumin 4.5 g/dL (3.80-4.90); Albumin/Globulin Ratio 1.55 (1.60-3.17); Anion Gap 9.1 mmol/L (4.00-12.00); BUN/Creat Ratio 11.43 Ratio (12.00-20.00); Calcium 9.1 mg/dL (8.7-10.3); Carbon Dioxide 29.9 mmol/L (21.6-31.8); Chol/HDL Ratio 6.21; Globulin 2.9 g/dL (1.6-3.3); LDL Cholesterol,Calculated 118.8 mg/dL (0.0-131.0); Potassium 3.6 mmol/L (3.5-5.5); Total Bilirubin 0.9 mg/dL (0.2-1.2); Total Protein 7.4 g/dL (6.2-8.2); VLDL Calculation 32.2 mg/dL (5.00-40.00)
[2020-12-28] MEDS: lisinopriL 10 MG TAB PO SCH (11:08)
[2020-12-28] MEDS: TAMSULOSIN 0.4 MG CAP.ER.24H PO SCH (11:08)
[2020-12-28] MEDS: SODIUM CHLORIDE 0.9% 1,000 ML IV SCH ×2 (11:13→21:11)
--- NOTE | 2020-12-28 11:31 | XR ---
EXAMINATION TYPE: XR chest 1V portable DATE OF EXAM: 12/28/2020 Comparison: 12/21/2014 Clinical History: 50-year-old male CHF, shortness of breath Findings: Heart normal size. Aorta and pulmonary vasculature within normal limits. There is some patchy opacity at the periphery of the left base. Remainder of the lungs appear clear. Impression: Some patchy peripheral left basilar atelectasis versus early infiltrate/pneumonia. Correlate with pat ient's symptoms.
[2020-12-28 14:33] LABS: Amphetamine Screen,Urine Not Detected (NotDetected); Barbiturate Screen,Urine Not Detected (NotDetected); Benzodiazepines Screen,Urine Not Detected (NotDetected); Cocaine Screen,Urine Not Detected (NotDetected); Methadone Screen, Urine Not Detected (NotDetected); Opiate Screen,Urine Detected (NotDetected); Oxycodone Screen, Urine Not Detected (NotDetected); Phencyclidine Screen,Urine Not Detected (NotDetected); Tricyclic Antidepressant,Urine Detected (NotDetected); Urn Cannabinoid Scrn Not Detected (NotDetected)
--- NOTE | 2020-12-28 17:02 | PN ---
PROGRESS NOTE DATE OF SERVICE: 12/28/2020 This 50-year-old gentleman who was admitted with acute severe pancreatitis and possible sepsis is being closely monitored at this time. The most recent chest x-ray, which was reviewed personally by me, showed some patchy infiltrate on the left lower lobe also. The patient is being closely monitored. The patient is on broad-spectrum IV antibiotics. Past medical history reviewed. REVIEW OF SYSTEMS: CARDIOVASCULAR SYSTEM: No angina, palpitations. RESPIRATORY SYSTEM: As mentioned earlier. GI: As mentioned earlier. : No dysuria or retention. NERVOUS SYSTEM: No numbness, weakness. CURRENT MEDICATIONS: Reviewed. They include Curtis, Xanax, Senokot, Neurontin, heparin, Dilaudid, xylocaine, Zestril, meropenem, Habitrol, Mycostatin, Zofran, Protonix. PHYSICAL EXAMINATION: Patient alert and oriented x3. Pulse is 87, blood pressure 115/80, respirations 16, temperature 98.4, pulse ox 94% on room air. HEENT: Conjunctivae normal. NECK: No jugular venous distention. CARDIOVASCULAR SYSTEM: S1, S2 muffled. RESPIRATORY SYSTEM: Breath sounds diminished at the bases. A few scattered rhonchi and crackles. ABDOMEN: Soft, non-tender. LEGS: No edema. No swelling. NERVOUS SYSTEM: No focal deficit. LABS: WBC 13.7, hemoglobin 15.2. Sodium 138, potassium 3.6, glucose 123. Amylase is 162, lipase is 223. Drug screen is positive for barbiturates, amphetamines and opiates. ASSESSMENT: 1. Acute severe pancreatitis with possible sepsis, present on admission. 2. Possible left lower lobe pneumonia. 3. Increased white count. 4. Severe abdominal pain. 5. Hyponatremia. 6. Increased random blood sugar, glucose. 7. Increased ALT. 8. Increased amylase, lipase. 9. History of cerebrovascular accident, transient ischemic attack. 10.History of recent cholecystectomy. 11.Hypertension. 12.History of transient ischemic attack. 13.History of head injury. 14.History of RSD. 15.History of chronic pain syndrome. 16.History of gait dysfunction. 17.History of anxiety, depression. 18.History of nicotine dependence. 19.History of alcohol abuse previously apparently. 20.FULL CODE. RECOMMENDATIONS AND DISCUSSION: I recommend to continue current medications, continue with the monitoring, symptomatic treatment. Otherwise at this time I recommend continuing the broad-spectrum IV antibiotics. Gastroenterology consultation. The patient is n.p.o. except ice chips at this time. Lipase will be monitored. Prognosis guarded. Further recommendations to follow. The patient also had multiple abnormalities on the CT scan, including possible pancreatic pseudocyst. MMKYLAHL / IJN: [id number] /
--- NOTE | 2020-12-28 18:45 | CONS ---
CONSULTATION DATE OF DICTATION: 12/28/2020 REASON FOR CONSULTATION: Acute pancreatitis. HISTORY OF PRESENT ILLNESS: The patient is a 50-year-old white male with history of hypertension, CVA, TIA in the past, acute recurrent pancreatitis, admitted to the hospital with severe epigastric pain radiating to the back for the last 2 days' duration. He came to the emergency room and was noted to have elevated lipase consistent with acute pancreatitis and subsequently was admitted to the hospital for further evaluation. Patient states that he had 2 prior episodes of acute pancreatitis. The last one was about a year ago, at which time he underwent gallbladder surgery for possible acute gallstone pancreatitis. He denies history of alcohol abuse. He had a CT of the abdomen and pelvis done in the emergency room that showed moderate acute pancreatitis with inflammatory changes, and a small pseudocyst formation was noted. PAST MEDICAL HISTORY: Significant for history of CVA, TIA in the past, hypertension and prior history of pancreatitis x2 episodes. PAST SURGICAL HISTORY: Cholecystectomy during his last episode of pancreatitis a year ago. MEDICATIONS: Medications at home include Tylenol, Zestril, Flomax, lidocaine, hydrocodone, gabapentin, doxepin, aspirin. ALLERGIES: NONE. SOCIAL HISTORY: No alcohol use. Former smoker. FAMILY HISTORY: Unremarkable. REVIEW OF SYSTEMS: CARDIOPULMONARY: He denies any chest pain or shortness of breath. GENITOURINARY: No dysuria or hematuria. MUSCULOSKELETAL: Unremarkable. SKIN: Unremarkable. ENDOCRINE: Unremarkable. PSYCHIATRIC: Unremarkable. NEUROLOGY: Unremarkable. ENT/VISION: Unremarkable. CONSTITUTIONAL: No recent weight loss. No fever, chills, night sweats. HEMATOLOGY: Unremarkable. PHYSICAL EXAMINATION: He appears comfortable. VITAL SIGNS: Stable. Blood pressure is 115/80, pulse rate 87, temperature 98.5. HEENT examination unremarkable. Conjunctivae pink. Sclerae anicteric. Oral cavity no lesions. NECK: No JVD or lymph node enlargement. CHEST: Clear to auscultation. HEART: Regular rate and rhythm. ABDOMEN: Soft. Mild tenderness in the epigastric area. EXTREMITIES: No pedal edema. SKIN: No rashes. NEUROLOGIC: Alert and oriented x3. No focal deficits. LABS: WBC 13.2, hemoglobin 15.9, platelets normal. Basic metabolic panel is within normal limits. BUN 7, creatinine 0.63. AST, ALT, T-bilirubin and alkaline phosphatase are within normal limits. Amylase was 402, lipase is 3215. Today amylase is down to 162, lipase is 223. AST, ALT, T-bilirubin and alkaline phosphatase are within normal limits. WBC 13.07, hemoglobin 15.8. CT of the abdomen and pelvis done yesterday in the ER showed moderately ill-defined fluid and fat stranding surrounding the entire pancreas with a small thin-walled cyst in the pancreatic tail measuring 1.6 x 1 cm consistent with acute pancreatitis. IMPRESSION: 1. Acute recurrent pancreatitis, this being the third episode. Normal serum transaminases. CT of the abdomen showed changes consistent with acute pancreatitis with a small 1.6 cm with pseudocyst formation. He had 2 prior episodes of acute pancreatitis in the last 2 years. The last one was a year ago, at which time he underwent gallbladder surgery. No history of alcohol use. Etiology of pancreatitis remains unclear, but this will be investigated. 2. History of hypertension. RECOMMENDATIONS: 1. Start him on a clear liquid diet. 2. Monitor amylase and lipase on a daily basis. 3. Obtain IgG4 levels and JULITO as well as fasting triglycerides. 4. Repeat labs in the morning. 5. Aggressive IV hydration. 6. Will follow with you closely. Thank you for this consultation. MMODL / IJN: [id number] /
[2020-12-28] MEDS: DOXEPIN 25 MG CAP PO SCH (21:11)
[2020-12-28] MEDS: GABAPENTIN 400 MG CAP PO SCH (21:11)
[2020-12-29] MEDS: MEROPENEM 2 GM in SODIUM CHLORIDE 0.9% 100 ML IVPB SCH ×3 (00:17→16:19)
[2020-12-29] MEDS: HYDROmorphone 0.5 MG/0.5 ML SYRINGE IVP PRN ×6 (01:32→22:11)
[2020-12-29] MEDS: SODIUM CHLORIDE 0.9% 1,000 ML IV SCH ×3 (03:55→18:15)
[2020-12-29] MEDS: ONDANSETRON 4 MG/2 ML VIAL IVP PRN (05:06)
[2020-12-29 08:51] LABS: Basophils # (A) 0.04 X 10*3/uL (0.00-0.10); Basophils % (A) 0.5 %; Eosinophils # (A) 0.09 X 10*3/uL (0.04-0.35); Eosinophils % (A) 1.1 %; HCT 40.6 % (39.6-50.0); Lymphocytes # (A) 2.78 X 10*3/uL (0.90-5.00); Lymphocytes % (A) 33.1 %; MCH 33.4 pg (27.0-32.0); MCHC 34.5 g/dL (32.0-37.0); MCV 96.9 fL (80.0-97.0); Monocytes # (A) 0.74 X 10*3/uL (0.20-1.00); Monocytes % (A) 8.8 %; Neutrophils # (A) 4.74 X 10*3/uL (1.80-7.70); Neutrophils % (A) 56.3 %; Platelet Count 258 X 10*3/uL (140-440); RBC 4.19 X 10*6/uL (4.40-5.60); WBC 8.41 X 10*3/uL (4.50-10.00)
[2020-12-29] MEDS: HYDROcodone/APAP 10-325MG 1 EACH TAB PO SCH ×3 (09:14→21:07)
[2020-12-29] MEDS: HEPARIN SODIUM,PORCINE 5,000 UNIT/ML 1 ML VIAL SQ SCH ×2 (09:14→21:08)
[2020-12-29] MEDS: NICOTINE 14MG/24HR PATCH TRANSDERM SCH (09:15)
[2020-12-29] MEDS: NYSTATIN 100,000 UNIT/ML SUSP 500,000 UNIT/5 ML CUP PO SCH ×3 (09:15→21:08)
[2020-12-29] MEDS: PANTOPRAZOLE 40 MG/10 ML VIAL IVP SCH ×2 (09:15→21:08)
[2020-12-29] MEDS: LIDOCAINE 5% OINTMENT 50 GM JAR TOPICAL SCH ×3 (09:29→21:10)
[2020-12-29 11:45] LABS: African American GFR (CKD) 120.7 (60.0-200.0); Albumin/Globulin Ratio 1.74 (1.60-3.17); Anion Gap 8.7 mmol/L (4.00-12.00); BUN/Creat Ratio 12.5 Ratio (12.00-20.00); Calcium 8.7 mg/dL (8.7-10.3); Carbon Dioxide 32.3 mmol/L (21.6-31.8); Globulin 2.3 g/dL (1.6-3.3); Non-African American GFR(CKD) 104.2 (60.0-200.0); Potassium 3.7 mmol/L (3.5-5.5); Total Bilirubin 0.5 mg/dL (0.2-1.2); Total Protein 6.3 g/dL (6.2-8.2)
[2020-12-29] MEDS: lisinopriL 10 MG TAB PO SCH (12:19)
[2020-12-29] MEDS: TAMSULOSIN 0.4 MG CAP.ER.24H PO SCH (12:19)
--- NOTE | 2020-12-29 16:45 | P.PN ---
Subjective Progress Note Date: 12/29/20 Principal diagnosis: Acute pancreatitis And is a pleasant 50-year-old white male with acute recurrent pancreatitis admitted to the hospital with severe epigastric pain for the last 2-3 days duration. As noted have and elevated lipase in the emergency room consistent with acute pancreatitis. Today he reports improved abdominal pain, denies any nausea or vomiting. Lipase is trending down, today 71. Objective - Vital Signs Vital signs: Vital Signs Temp 98.7 F 12/29/20 12:20 Pulse 102 H 12/29/20 12:20 Resp 15 12/29/20 12:20 BP 137/94 12/29/20 12:20 Pulse Ox 98 12/29/20 12:20 Intake & Output 12/28/20 12/29/20 12/29/20 18:59 06:59 18:59 Intake Total 1050 Output Total 450 420 400 Balance -450 630 -400 Intake: Intake, IV Titration 850 Amount Meropenem 2 gm In Sodium 100 Chloride 0.9% 100 ml @ 33 .3 mls/hr IVPB Q8HR [facility] Rx#:[id number] Sodium Chloride 0.9% 1, 750 000 ml @ 150 mls/hr IV . Q6H40M [facility] Rx#:[id number] Oral 200 Output: Urine 450 420 400 Other: Voiding Method Urinal Urinal Urinal # Voids 2 1 # Bowel Movements 0 - Exam General appearance: The patient is alert, oriented, appears in no acute dist ress. HET: Head is normocephalic and atraumatic. Conjunctiva pink. Sclera anicteric. Neck: Supple without lymphadenopathy. Abdomen: Soft, mild epigastric tenderness, nondistended with bowel sounds. No guarding or rigidity. Extremities: Normal skin color and turgor. No pedal edema Skin: No rashes, no jaundice Neurological: No focal deficits. Alert and oriented 3. - Labs CBC & Chem 7: 12/29/20 05:22 12/29/20 05:22 Labs: Abnormal Lab Results - Last 24 Hours (Table) 12/29/20 12/29/20 Range/Units 05:22 05:22 RBC 4.19 L (4.40-5.60) X 10*6/uL MCH 33.4 H (27.0-32.0) pg Carbon Dioxide 32.3 H (21.6-31.8) mmol/L ALT 64 H (10-49) U/L Lipase 71 H (14-60) U/L Microbiology - Last 24 Hours (Table) 12/27/20 21:23 Blood Culture - Preliminary Blood No Growth after 24 hours 12/27/20 18:00 Urine Culture - Preliminary Urine,Voided Assessment and Plan (1) Acute pancreatitis Narrative/Plan: Acute recurrent pancreatitis, this being the third episode. Normal serum transaminases. CT of the abdomen showed changes consistent with acute pancreatitis with a small 1.6 cm pseudocyst formation. He had 2 prior episodes of acute pancreatitis in the last 2 years. The last one was a year ago at which time he underwent gallbladder surgery. Has no history of alcohol use. Etiology of pancreatitis remains unclear and will be investigated. Current Visit: Yes Status: Acute Code(s): K85.90 - ACUTE PANCREATITIS WITHOUT NECROSIS OR INFECTION, UNSP SNOMED Code(s): 881203535 Plan: 1. Advance to fully quit diet 2. Repeat lipase, CMP daily 3. IgG level and JULITO ordered 4. Continue IV hydration 5. Continue pain management per primary medicine team 6. We will continue to follow with you closely thank you for this consultation Dr. Cathi Raza I agree with the dictator's note, documented as a scribe by Maricarmen Trinidad.
--- NOTE | 2020-12-29 18:26 | PN ---
PROGRESS NOTE DATE OF SERVICE: 12/29/2020 This 50-year-old gentleman who was admitted with acute severe pancreatitis is being closely monitored at this time. Gastroenterology is following the patient closely. Lipase is still elevated and cultures are negative so far. White count is improved to 8.41 today. Past medical history reviewed. REVIEW OF SYSTEMS: CARDIOVASCULAR SYSTEM: No angina, palpitations. RESPIRATORY SYSTEM: As mentioned earlier. GI: As mentioned earlier. : No dysuria or retention. NERVOUS SYSTEM: No numbness, weakness. CURRENT MEDICATIONS: Reviewed. They include [place] 10 mg, Xanax, Colace, Senokot, heparin. Doses are reviewed. PHYSICAL EXAMINATION: Patient alert and oriented x3. Pulse 102, blood pressure 137/94, respiration 15, temperature 98.7, pulse ox 98% on room air. HEENT: Conjunctivae normal. NECK: No jugular venous distention. CARDIOVASCULAR SYSTEM: S1, S2 muffled. RESPIRATORY SYSTEM: Breath sounds diminished at the bases. A few scattered rhonchi. ABDOMEN: Soft. Mild diffuse tenderness. No guarding. No rigidity. No mass palpable. LEGS: No edema. No swelling. NERVOUS SYSTEM: No focal deficit. LABS: WBC 8.4, hemoglobin 14, and lipase 71. Other labs are reviewed. ASSESSMENT: 1. Acute severe pancreatitis with possible sepsis, present on admission. 2. Possible left lower lobe pneumonia, on empiric antibiotics. 3. Increased white count. 4. Severe abdominal pain. 5. Hyponatremia. 6. Increased random blood sugar and glucose. 7. Increased ALT. 8. Increased amylase, lipase. 9. History of cerebrovascular accident, transient ischemic attack. 10.History of recent cholecystectomy. 11.Hypertension. 12.History of transient ischemic attack. 13.History of head injury. 14.History of RSD. 15.History of chronic pain syndrome. 16.Gait dysfunction. 17.Anxiety, depression. 18.History of nicotine dependence. 19.History of alcohol abuse previously apparently. 20.FULL CODE. RECOMMENDATIONS AND DISCUSSION: I recommend to continue current medications, continue with the monitoring, symptomatic treatment. Otherwise at this time we will closely monitor with Gastroenterology. Dr. Raza saw the patient and recommended to advance to full liquid diet and repeat lipase, and IgG level and JULITO levels are also ordered. IV hydration is being continued. Pain medications. Overall prognosis is extremely guarded because of multiple complex medical issues. Further recommendations to follow. MMODL / IJN: [id number] /
[2020-12-29] MEDS: GABAPENTIN 400 MG CAP PO SCH (21:07)
[2020-12-29] MEDS: DOCUSATE 100 MG CAP PO SCH (21:07)
[2020-12-29] MEDS: DOXEPIN 25 MG CAP PO SCH (21:07)
[2020-12-30] MEDS: MEROPENEM 2 GM in SODIUM CHLORIDE 0.9% 100 ML IVPB SCH ×4 (00:13→23:18)
[2020-12-30] MEDS: ONDANSETRON 4 MG/2 ML VIAL IVP PRN (00:24)
[2020-12-30] MEDS: HYDROmorphone 0.5 MG/0.5 ML SYRINGE IVP PRN ×4 (01:52→19:35)
[2020-12-30] MEDS: SODIUM CHLORIDE 0.9% 1,000 ML IV SCH ×5 (04:14→23:20)
[2020-12-30 09:03] LABS: ALT 123 U/L (4-49); AST 102 U/L (17-59); African American GFR (CKD) >90 (>60 ml/min/1.73 sqM); Albumin 3.7 g/dL (3.5-5.0); Albumin/Globulin Ratio 1.4; Alkaline Phosphatase 98 U/L (38-126); Amylase 43 U/L (30-110); Anion Gap 3 mmol/L; Blood Urea Nitrogen 4 mg/dL (9-20); Calcium 9.1 mg/dL (8.4-10.2); Carbon Dioxide 38 mmol/L (22-30); Chloride 96 mmol/L (98-107); Globulin 2.7 g/dL; Glucose 128 mg/dL (74-99); Lipase 264 U/L (23-300); Non-African American GFR(CKD) >90 (>60 ml/min/1.73 sqM); Potassium 3.4 mmol/L (3.5-5.1); Sodium 137 mmol/L (137-145); Total Bilirubin 0.7 mg/dL (0.2-1.3); Total Protein 6.4 g/dL (6.3-8.2)
[2020-12-30] MEDS: HYDROcodone/APAP 10-325MG 1 EACH TAB PO SCH ×3 (09:12→21:03)
[2020-12-30] MEDS: DOCUSATE 100 MG CAP PO SCH ×2 (09:12→20:57)
[2020-12-30] MEDS: NICOTINE 14MG/24HR PATCH TRANSDERM SCH (09:12)
[2020-12-30] MEDS: HEPARIN SODIUM,PORCINE 5,000 UNIT/ML 1 ML VIAL SQ SCH ×2 (09:12→20:57)
[2020-12-30] MEDS: NYSTATIN 100,000 UNIT/ML SUSP 500,000 UNIT/5 ML CUP PO SCH ×3 (09:13→20:56)
[2020-12-30] MEDS: PANTOPRAZOLE 40 MG/10 ML VIAL IVP SCH ×2 (09:13→21:01)
[2020-12-30] MEDS: LIDOCAINE 5% OINTMENT 50 GM JAR TOPICAL SCH ×3 (09:21→20:58)
[2020-12-30] MEDS ORDERED: Potassium Replacement Protocol 1 EACH MISC MISCELLANE PRN (10:55)
[2020-12-30] MEDS ORDERED: Magnesium Replacement Protocol 1 EACH MISC MISCELLANE PRN (10:55)
[2020-12-30 11:02] LABS: Basophils # (A) 0.04 X 10*3/uL (0.00-0.10); Basophils % (A) 0.5 %; Eosinophils # (A) 0.12 X 10*3/uL (0.04-0.35); Eosinophils % (A) 1.5 %; HCT 39.6 % (39.6-50.0); HGB 13.8 g/dL (13.0-17.0); Lymphocytes # (A) 2.73 X 10*3/uL (0.90-5.00); Lymphocytes % (A) 34.8 %; MCH 33.2 pg (27.0-32.0); MCHC 34.8 g/dL (32.0-37.0); MCV 95.2 fL (80.0-97.0); Mean Platelet Volume 10.9 fL (9.5-12.2); Monocytes # (A) 0.58 X 10*3/uL (0.20-1.00); Monocytes % (A) 7.4 %; Neutrophils # (A) 4.36 X 10*3/uL (1.80-7.70); Neutrophils % (A) 55.5 %; Platelet Count 284 X 10*3/uL (140-440); RBC 4.16 X 10*6/uL (4.40-5.60); RDW 13.6 % (11.5-14.5); WBC 7.85 X 10*3/uL (4.50-10.00)
[2020-12-30] MEDS: lisinopriL 10 MG TAB PO SCH (13:26)
[2020-12-30] MEDS: TAMSULOSIN 0.4 MG CAP.ER.24H PO SCH (13:26)
[2020-12-30 13:35] VITALS: RESP 16
[2020-12-30 14:42] LABS: IgG Subclass 3 50.1 mg/dL (11.0-85.0); IgG Subclass 4 37.4 mg/dL (3.0-175.0)
--- NOTE | 2020-12-30 15:41 | P.PN ---
Subjective Progress Note Date: 12/30/20 This is a 50-year-old male who was recently admitted with acute severe pancreatitis and being closely monitored. GI following and continued on conservative management and diet has been advanced to full liquids and tolerating and will be advanced to low fiber and monitor for tolerance. Amylase and lipase are within normal limits. Patient continues to have left ankle pain which he states is chronic and has been attempting to follow-up with pain management in the outpatient setting although not able to be seen any earlier than [address] pain management consult and await report. Chanel ent will continue to follow-up outpatient with pain management upon discharge. She denies any chest pain, shortness of breath, or palpitations. Patient is afebrile. Patient is tolerating diet with no reports of nausea or vomiting noted. Review of systems: Constitutional: No reports of fatigue, fever, or chills Cardiovascular: No reports of chest pain or palpitations Respiratory: No reports of shortness of breath or cough GI: No reports of nausea, vomiting, or diarrhea : No reports of dysuria or retention Neurovascular: No reports of weakness or numbness him a reports continued left ankle pain 9 out of 10 on the pain scale. All medications have been reviewed Active Medications Hydrocodone Bitart/Acetaminophen (Hydrocodone/Apap 10-325mg 1 Each Tab) 1 each PO TID [facility] Last Admin: 12/30/20 09:12 Dose: 1 each Documented by: Alprazolam (Alprazolam 0.25 Mg Tab) 0.25 mg PO TID PRN PRN Reason: Anxiety Docusate Sodium (Docusate 100 Mg Cap) 100 mg PO BID [facility] Last Admin: 12/30/20 09:12 Dose: 100 mg Documented by: Doxepin HCl (Doxepin 25 Mg Cap) 50 mg PO [facility] Last Admin: 12/29/20 21:07 Dose: 50 mg Documented by: Gabapentin (Gabapentin 400 Mg Cap) 800 mg PO [facility] Last Admin: 12/29/20 21:07 Dose: 800 mg Documented by: Heparin Sodium (Porcine) (Heparin Sodium,Porcine 5,000 Unit/Ml 1 Ml Vial) 5,000 unit SQ Q12HR [facility] Last Admin: 12/30/20 09:12 Dose: 5,000 unit Documented by: Hydromorphone HCl (Hydromorphone 0.5 Mg/0.5 Ml Syringe) 0.5 mg IVP Q4HR PRN PRN Reason: Pain Last Admin: 12/30/20 12:30 Dose: 0.5 mg Documented by: Sodium Chloride (Saline 0.9%) 1,000 mls @ 150 mls/hr IV .Q6H40M [facility] Last Admin: 12/30/20 13:26 Dose: 150 mls/hr Documented by: Meropenem 2 gm/ Sodium (Chloride) 100 mls @ 33.3 mls/hr IVPB Q8HR [facility]; Protocol Last Admin: 12/30/20 09:11 Dose: 33.3 mls/hr Documented by: Lidocaine (Lidocaine 5% Ointment 50 Gm Jar) 1 applic TOPICAL TID [facility] Last Admin: 12/30/20 09:21 Dose: 1 applic Documented by: Lisinopril (Lisinopril 10 Mg Tab) 10 mg PO DAILY@1200 [facility] Last Admin: 12/30/20 13:26 Dose: 10 mg Documented by: Miscellaneous Information (Magnesium Replacement Protocol 1 Each Misc) 1 each MISCELLANE DAILY PRN; Protocol PRN Reason: Per Protocol Miscellaneous Information (Potassium Replacement Protocol 1 Each Misc) 1 each MISCELLANE DAILY PRN; Protocol PRN Reason: Per Protocol Nicotine (Nicotine 14mg/24hr Patch) 1 patch TRANSDERM DAILY [facility] Last Admin: 12/30/20 09:12 Dose: 1 patch Documented by: Nystatin (Nystatin 100,000 Unit/Ml Susp 500,000 Unit/5 Ml Cup) 500,000 unit PO TID [facility] Last Admin: 12/30/20 09:13 Dose: 500,000 unit Documented by: Ondansetron HCl (Ondansetron 4 Mg/2 Ml Vial) 4 mg IVP Q6HR PRN PRN Reason: Nausea And Vomiting Last Admin: 12/30/20 00:24 Dose: 4 mg Documented by: Pantoprazole Sodium (Pantoprazole 40 Mg/10 Ml Vial) 40 mg IVP BID [facility] Last Admin: 12/30/20 09:13 Dose: 40 mg Documented by: Tamsulosin HCl (Tamsulosin 0.4 Mg Cap.Er.24h) 0.4 mg PO DAILY@1200 [facility] Last Admin: 12/30/20 13:26 Dose: 0.4 mg Documented by: Temazepam (Temazepam 15 Mg Cap) 15 mg PO HS PRN PRN Reason: Insomnia Objective - Vital Signs Vital signs: Vital Signs Temp 99.0 F 12/30/20 04:41 Pulse 93 12/30/20 08:00 Resp 18 12/30/20 08:00 BP 119/87 12/30/20 04:41 Pulse Ox 95 12/30/20 04:41 Intake & Output 12/29/20 12/30/20 12/30/20 18:59 06:59 18:59 Intake Total 1540 Output Total 1000 Balance 540 Intake: Intake, IV Titration 1300 Amount Meropenem 2 gm In Sodium 100 Chloride 0.9% 100 ml @ 33 .3 mls/hr IVPB Q8HR [facility] Rx#:[id number] Sodium Chloride 0.9% 1, 1200 000 ml @ 150 mls/hr IV . Q6H40M [facility] Rx#:[id number] Oral 240 Output: Urine 1000 Other: Voiding Method Urinal Urinal Urinal # Voids 1 1 # Bowel Movements 0 - Exam Gen: This is a 50-year-old male currently sitting up in bed, awake, alert and o riented 3, well-developed, well-nourished. Temp is 98.8F, pulse is 82, respirations are 16, blood pressure is 133/87, oxygen saturation is 94% on room air. HEENT: Head is atraumatic, normocephalic. Pupils equal, round. Sclerae is anicteric. NECK: Supple. No JVD. No lymphadenopathy. No thyromegaly. LUNGS: Manage breath sounds bilaterally with some scattered rhonchi noted No intercostal retractions. HEART: S1, S2 are muffled. ABDOMEN: Soft. Bowel sounds are present. No masses. Mildly tender on palpation with no guarding or rigidity noted. EXTREMITIES: No pedal edema. No calf tenderness. Left Ankle tenderness and pain which is chronic NEUROLOGICAL: Patient is awake, alert and oriented x3. Cranial nerves 2 through 12 are grossly intact. - Labs CBC & Chem 7: 12/30/20 07:42 12/30/20 07:42 Labs: Abnormal Lab Results - Last 24 Hours (Table) 12/29/20 12/30/20 12/30/20 Range/Units 05:22 07:42 07:42 RBC 4.16 L (4.40-5.60) X 10*6/uL MCH 33.2 H (27.0-32.0) pg Potassium 3.4 L (3.5-5.1) mmol/L Chloride 96 L (98-107) mmol/L Carbon Dioxide 38 H (22-30) mmol/L BUN 4 L (9-20) mg/dL Creatinine 0.65 L (0.66-1.25) mg/dL Glucose 128 H (74-99) mg/dL AST 102 H (17-59) U/L ALT 123 H (4-49) U/L JULITO Screen POSITIVE A (NEGATIVE) Microbiology - Last 24 Hours (Table) 12/27/20 21:23 Blood Culture - Preliminary Blood No Growth after 48 hours 12/27/20 18:00 Urine Culture - Final Urine,Voided Assessment and Plan Assessment: Acute severe pancreatitis with possible sepsis, present on admission Possible left lower lobe pneumonia, on empiric antibiotic Increased white count severe abdominal pain Hyponatremia Increased random blood sugar and glucose Increased ALT increased amylase, lipase history of CVA, TIA History of recent cholecystectomy Hypertension History of transient ischemic attack History of head injury History of RSD History of chronic pain syndrome Gait dysfunction Anxiety, depression history of nicotine dependence history of alcohol abuse previously apparently Full code Recommendations and discussion: Recommend continue current medications, management, and symptomatic treatment. Maintained on empiric antibiotic and will continue at this time. GI following closely and patient is maintained on full liquid diet and tolerating with no reports of nausea or vomiting noted. Patient continues to have some mild abdominal discomfort although states has improved and will advance diet to low- fat and monitor for tolerance. Patient has chronic left ankle pain and states that his pain is unmanaged and will request pain management consult. White blood count is 7.85 today, hemoglobin is stable at 13.8. Sodium is 137, potassium slightly low at 3.4 and will replace, creatinine is 0.65, amylase and lipase within normal limits. Will repeat Labs and continue with electrolyte replacement per protocol. Due to multiple complex medical issues, prognosis is guarded. Further recommendations to follow.
--- NOTE | 2020-12-30 16:35 | P.PN ---
Subjective Progress Note Date: 12/30/20 Principal diagnosis: Acute pancreatitis And is a pleasant 50-year-old white male with acute recurrent pancreatitis admitted to the hospital with severe epigastric pain for the last 2-3 days duration. As noted have and elevated lipase in the emergency room consistent with acute pancreatitis. Today he reports improved abdominal pain, denies any nausea or vomiting. Patient is more focused on his chronic pain syndrome. Tolerating his full liquid diet. Objective - Vital Signs Vital signs: Vital Signs Temp 99.0 F 12/30/20 04:41 Pulse 93 12/30/20 08:00 Resp 18 12/30/20 08:00 BP 119/87 12/30/20 04:41 Pulse Ox 95 12/30/20 04:41 Intake & Output 12/29/20 12/30/20 12/30/20 18:59 06:59 18:59 Intake Total 1540 Output Total 1000 Balance 540 Intake: Intake, IV Titration 1300 Amount Meropenem 2 gm In Sodium 100 Chloride 0.9% 100 ml @ 33 .3 mls/hr IVPB Q8HR [facility] Rx#:[id number] Sodium Chloride 0.9% 1, 1200 000 ml @ 150 mls/hr IV . Q6H40M [facility] Rx#:[id number] Oral 240 Output: Urine 1000 Other: Voiding Method Urinal Urinal Urinal # Voids 1 1 # Bowel Movements 0 - Exam General appearance: The patient is alert, oriented, appears in no acute distress. HET: Head is normocephalic and atraumatic. Conjunctiva pink. Sclera anicteric. Neck: Supple without lymphadenopathy. Abdomen: Soft, mild epigastric tenderness, nondistended with bowel sounds. No guarding or rigidity. Extremities: Normal skin color and turgor. No pedal edema Skin: No rashes, no jaundice Neurological: No focal deficits. Alert and oriented 3. - Labs CBC & Chem 7: 12/30/20 07:42 12/30/20 07:42 Labs: Abnormal Lab Results - Last 24 Hours (Table) 12/29/20 12/30/20 12/30/20 Range/Units 05:22 07:42 07:42 RBC 4.16 L (4.40-5.60) X 10*6/uL MCH 33.2 H (27.0-32.0) pg Potassium 3.4 L (3.5-5.1) mmol/L Chloride 96 L (98-107) mmol/L Carbon Dioxide 38 H (22-30) mmol/L BUN 4 L (9-20) mg/dL Creatinine 0.65 L (0.66-1.25) mg/dL Glucose 128 H (74-99) mg/dL AST 102 H (17-59) U/L ALT 123 H (4-49) U/L JULITO Screen POSITIVE A (NEGATIVE) Microbiology - Last 24 Hours (Table) 12/27/20 21:23 Blood Culture - Preliminary Blood No Growth after 48 hours 12/27/20 18:00 Urine Culture - Final Urine,Voided Assessment and Plan (1) Acute pancreatitis Narrative/Plan: Acute recurrent pancreatitis, this being the third episode. Normal serum transaminases. CT of the abdomen showed changes consistent with acute pancreatitis with a small 1.6 cm pseudocyst formation. He had 2 prior episodes of acute pancreatitis in the last 2 years. The last one was a year ago at which time he underwent gallbladder surgery. Has no history of alcohol use. Etiology of pancreatitis remains unclear and will be investigated. IgG for pending, patient did have a positive JULITO. Current Visit: Yes Status: Acute Code(s): K85.90 - ACUTE PANCREATITIS WITHOUT NECROSIS OR INFECTION, UNSP SNOMED Code(s): 652794008 Plan: 1. Advance to low fat diet 2. Repeat lipase, CMP daily 3. IgG level and JULITO ordered 4. Continue IV hydration 5. Continue pain management per primary medicine team 6. Do for this consultation, patient may be discharged home from a gastroenterology standpoint we will sign off at this time. Dr. Cathi Raza I agree with the dictator's note, documented as a scribe by Maricarmen Trinidad.
[2020-12-30] MEDS: GABAPENTIN 400 MG CAP PO SCH (20:56)
[2020-12-30] MEDS: DOXEPIN 25 MG CAP PO SCH (20:57)
[2020-12-31] MEDS: HYDROmorphone 0.5 MG/0.5 ML SYRINGE IVP PRN ×3 (00:05→14:20)
[2020-12-31 04:53] VITALS: BP 139/89; PULSE 79; TEMP 98.6
[2020-12-31 06:21] LABS: African American GFR (CKD) >90 (>60 ml/min/1.73 sqM); Anion Gap 5 mmol/L; Blood Urea Nitrogen 5 mg/dL (9-20); Calcium 8.9 mg/dL (8.4-10.2); Carbon Dioxide 37 mmol/L (22-30); Chloride 96 mmol/L (98-107); Glucose 117 mg/dL (74-99); Magnesium 1.9 mg/dL (1.6-2.3); Non-African American GFR(CKD) >90 (>60 ml/min/1.73 sqM); Potassium 3.2 mmol/L (3.5-5.1); Sodium 138 mmol/L (137-145)
[2020-12-31] MEDS: HYDROcodone/APAP 10-325MG 1 EACH TAB PO SCH (07:39)
[2020-12-31] MEDS: DOCUSATE 100 MG CAP PO SCH (07:40)
[2020-12-31] MEDS: PANTOPRAZOLE 40 MG/10 ML VIAL IVP SCH (07:40)
[2020-12-31] MEDS: HEPARIN SODIUM,PORCINE 5,000 UNIT/ML 1 ML VIAL SQ SCH (07:40)
[2020-12-31] MEDS: NICOTINE 14MG/24HR PATCH TRANSDERM SCH (07:41)
[2020-12-31] MEDS: NYSTATIN 100,000 UNIT/ML SUSP 500,000 UNIT/5 ML CUP PO SCH (07:41)
[2020-12-31] MEDS: SODIUM CHLORIDE 0.9% 1,000 ML IV SCH ×2 (07:41→08:03)
[2020-12-31] MEDS: MEROPENEM 2 GM in SODIUM CHLORIDE 0.9% 100 ML IVPB SCH (08:02)
[2020-12-31] MEDS ORDERED: POTASSIUM CHLORIDE ER 20 MEQ TAB.ER PO STA (09:23)
[2020-12-31] MEDS: LIDOCAINE 5% OINTMENT 50 GM JAR TOPICAL SCH (09:34)
[2020-12-31 09:46] LABS: BUN/Creat Ratio 16.67 Ratio (12.00-20.00)
[2020-12-31] MEDS: TAMSULOSIN 0.4 MG CAP.ER.24H PO SCH (13:05)
[2020-12-31] MEDS: lisinopriL 10 MG TAB PO SCH (13:05)
--- NOTE | 2020-12-31 15:12 | P.PN ---
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 Don at the [facility], patient can follow up with the Dr. Don,or Dr Coe after discharge to get his medication refill, because the pain clinic at [facility], it's mainly interventional pain management clinic ,we don't handle medication management
--- NOTE | 2020-12-31 16:44 | P.DS ---
Providers Date of admission: 12/27/20 17:04 Expected date of discharge: 12/31/20 Attending physician: Poncho Patel Consults: 12/30/20 11:42 Consult Physician Routine Consulting Provider: Lyle Bond Consult Reason/Comments: chronic lt ankle pain Do you want consulting provider notified?: Yes Primary care physician: Ellie Marx Hospital Course: Final diagnosis Acute severe pancreatitis with possible sepsis, present on admission Possible left lower lobe pneumonia, on empiric antibiotic Increased white count severe abdominal pain Hyponatremia Increased random blood sugar and glucose Increased ALT increased amylase, lipase history of CVA, TIA History of recent cholecystectomy Hypertension History of transient ischemic attack History of head injury History of RSD History of chronic pain syndrome Gait dysfunction Anxiety, depression history of nicotine dependence history of alcohol abuse previously apparently Full code Discharge disposition Patient is being discharged in a stable condition with guarded prognosis to home. Patient will follow-up with Dr. Argueta in the outpatient setting upon discharge. Patient also instructed to follow-up with GI and pain management in the outpatient setting. Patient will continue with Protonix 40 mg twice daily. Total time taken is greater than 35 minutes. Hospital course This is a 50-year-old male who was recently admitted with acute severe pancreatitis and being closely monitored. GI following and continued on conservative management and diet has been advanced to full liquids and tolerating and will be advanced to low fiber and monitor for tolerance. Amylase and lipase are within normal limits. Patient continues to have left ankle pain which he states is chronic and has been attempting to follow-up with pain management in the outpatient setting although not able to be seen any earlier than [address] pain management consult and await report. Patient will continue to follow-up outpatient with pain management upon discharge. She denies any chest pain, shortness of breath, or palpitations. Patient is afebrile. Patient is tolerating diet with no reports of nausea or vomiting noted. 12/31/2020 Patient is tolerating diet with no further reports of abdominal discomfort noted. Patient continues to have left ankle discomfort which has been chronic and following with Dr. Don in the outpatient setting. Patient will need to follow-up with pain management outpatient along with his primary care provider. Patient will also follow-up with GI in the outpatient setting. Patient is to continue with Protonix twice daily until GI follow-up. Currently no reports of chest pain, shortness of breath, or palpitations. Patient is afebrile. No reports of nausea or vomiting and patient is tolerating diet. Patient will discharged home today. Guarded prognosis. On exam vital signs are stable. Cardio S1, S2 are muffled. Respiratory system shows diminished breath sounds at the bases with no wheezing or rhonchi noted. Abdomen is soft and nontender. Nervous system shows no focal deficits. Please refer to medication reconciliation sheet for a list of medications. Patient Condition at Discharge: Fair Plan - Discharge Summary Discharge Rx Participant: Yes New Discharge Prescriptions: New Docusate [Colace] 100 mg PO BID 30 Days #60 cap Nystatin 100,000 Unit/ml Susp [Mycostatin Oral Susp] 500,000 unit PO TID 7 Days #110 ml Pantoprazole Sodium [Protonix] 40 mg PO BID 30 Days #60 tablet.dr D[place] Lidocaine 5% Ointment 1 applic TOPICAL TID Doxepin HCl 50 mg PO HS Gabapentin [Neurontin] 800 mg PO HS lisinopriL [Zestril] 10 mg PO DAILY@1200 Tamsulosin HCl [Flomax] 0.4 mg PO DAILY@1200 Aspirin EC [Ecotrin Low Dose] 81 mg PO DAILY@1200 Acetaminophen [Tylenol] 500 mg PO Q2H Changed HYDROcodone/APAP 10-325MG [[place] 10-325] 1 tab PO TID #12 tab Discharge Medication List Lidocaine 5% Ointment 1 applic TOPICAL TID 10/20/15 [History] Doxepin HCl 50 mg PO HS 02/21/19 [History] Gabapentin [Neurontin] 800 mg PO HS 10/27/19 [History] Acetaminophen [Tylenol] 500 mg PO Q2H 12/27/20 [History] Aspirin EC [Ecotrin Low Dose] 81 mg PO DAILY@1200 12/27/20 [History] Tamsulosin HCl [Flomax] 0.4 mg PO DAILY@1200 12/27/20 [History] lisinopriL [Zestril] 10 mg PO DAILY@1200 12/27/20 [History] Docusate [Colace] 100 mg PO BID 30 Days #60 cap 12/31/20 [Rx] HYDROcodone/APAP 10-325MG [[place] 10-325] 1 tab PO TID #12 tab 12/31/20 [Rx] Nystatin 100,000 Unit/ml Susp [Mycostatin Oral Susp] 500,000 unit PO TID 7 Days #110 ml 12/31/20 [Rx] Pantoprazole Sodium [Protonix] 40 mg PO BID 30 Days #60 tablet. 12/31/20 [Rx] Follow up Appointment(s)/Referral(s): Araseli Argueta MD [Primary Care Provider] - 01/10/21 10:10 am Lucina Raza MD [STAFF PHYSICIAN] - 01/13/21 9:30 am Ambulatory/Diagnostic Orders: Complete Blood Count w/diff [LAB.AMB] Time Frame: 2 Days, Location: None Selected Patient Instructions/Handouts: Hydrocodone/Acetaminophen (By mouth), Nystatin (By mouth), Laxative, Stool Softeners (By mouth), Pantoprazole (By mouth), Pancreatitis (DC) Activity/Diet/Wound Care/Special Instructions: Activity Limited until follow-up Follow-up with primary care provider upon discharge Follow-up with pain management outpatient Follow-up with GI as discussed in 1-2 weeks Continue with Protonix twice daily Continue with low-fat diet see list of pain clinics to call Discharge Disposition: HOME SELF-CARE
== END 2020-12-31 15:18 | disposition home or self-care (01) | DRG 871 ==
LOC: EC 14:05 → 5NMEDONC 17:04
PROVIDERS: ADMIT Hospitalist; ATTEND Hospitalist
DX: A41.9 Sepsis, unspecified organism (principal); K85.90 Acute pancreatitis without necrosis or infection, unspecified; J18.9 Pneumonia, unspecified organism; K86.3 Pseudocyst of pancreas; E87.1 Hypo-osmolality and hyponatremia; G90.50 Complex regional pain syndrome I, unspecified; K86.1 Other chronic pancreatitis; K86.81 Exocrine pancreatic insufficiency; G57.92 Unspecified mononeuropathy of left lower limb; Z20.822 Contact with and (suspected) exposure to COVID-19; F17.210 Nicotine dependence, cigarettes, uncomplicated; F32.9 Major depressive disorder, single episode, unspecified; F41.9 Anxiety disorder, unspecified; G89.4 Chronic pain syndrome; I10 Essential (primary) hypertension; R76.8 Other specified abnormal immunological findings in serum; F10.10 Alcohol abuse, uncomplicated; M25.572 Pain in left ankle and joints of left foot; R26.9 Unspecified abnormalities of gait and mobility; Z71.6 Tobacco abuse counseling; Z90.49 Acquired absence of other specified parts of digestive tract; Z87.19 Personal history of other diseases of the digestive system; Z98.890 Other specified postprocedural states; Z79.82 Long term (current) use of aspirin; Z79.899 Other long term (current) drug therapy; Z86.73 Personal history of transient ischemic attack (TIA), and cerebral infarction without residual deficits; Z87.828 Personal history of other (healed) physical injury and trauma; Z87.440 Personal history of urinary (tract) infections; Z87.81 Personal history of (healed) traumatic fracture; Z82.49 Family history of ischemic heart disease and other diseases of the circulatory system
CPT/HCPCS: 36415; 71045; 74177; 80048; 80053; 80061; 80306; 81001; 82150; 82787; 83605; 83690; 83735; 85025; 86038; 86039; 87040; 87086; 87635; 93005; 96361; 96374; 96375; 99285

== ENCOUNTER 2021-09-03 00:55 | Inpatient (IN) | payer MEDICARE, OTHER ==
[2021-09-03] MEDS ORDERED: METOCLOPRAMIDE 5 MG/ML 2 ML VIAL IVP STA (01:08)
[2021-09-03] MEDS ORDERED: diphenhydrAMINE 50 MG/ML 1 ML VIAL IVP STA (01:08)
[2021-09-03] MEDS ORDERED: SODIUM CHLORIDE 0.9% 1,000 ML IV STA (01:08)
[2021-09-03] MEDS ORDERED: HYDROmorphone 0.5 MG/0.5 ML SYRINGE IVP STA (01:08)
[2021-09-03 01:46] LABS: Basophils % (A) 0 %; Eosinophils % (A) 0 %; HCT 41.8 % (39.0-53.0); HGB 14.3 gm/dL (13.0-17.5); Lymphocytes # (A) 1.2 k/uL (1.0-4.8); Lymphocytes % (A) 9 %; MCH 34.6 pg (25.0-35.0); MCHC 34.3 g/dL (31.0-37.0); MCV 100.8 fL (80.0-100.0); Mean Platelet Volume 8.1; Monocytes # (A) 0.6 k/uL (0-1.0); Monocytes % (A) 4 %; Neutrophils # (A) 11.1 k/uL (1.3-7.7); Neutrophils % (A) 85 %; Platelet Count 254 k/uL (150-450); RBC 4.14 m/uL (4.30-5.90); RDW 12.9 % (11.5-15.5)
[2021-09-03 01:53] LABS: ALT 21 U/L (4-49); AST 20 U/L (17-59); African American GFR (CKD) >90 (>60 ml/min/1.73 sqM); Alkaline Phosphatase 88 U/L (38-126); Anion Gap 9 mmol/L; Appearance,Urine Clear (Clear); Bilirubin,Urine Negative (Negative); Blood Urea Nitrogen 6 mg/dL (9-20); Blood,Urine Negative (Negative); Calcium 8.9 mg/dL (8.4-10.2); Carbon Dioxide 27 mmol/L (22-30); Chloride 92 mmol/L (98-107); Color,Urine Yellow; Glucose 129 mg/dL (74-99); Glucose,Urine (UA) Negative (Negative); Ketones,Urine 1+ (Negative); Leukocyte Esterase,Urine Negative (Negative); Lipase 1908 U/L (23-300); Nitrite,Urine Negative (Negative); Non-African American GFR(CKD) >90 (>60 ml/min/1.73 sqM); Potassium 3.2 mmol/L (3.5-5.1); Protein,Urine Trace (Negative); Sodium 128 mmol/L (137-145); Specific Gravity,Urine 1.017 (1.001-1.035); Total Bilirubin 0.5 mg/dL (0.2-1.3); Total Protein 6.9 g/dL (6.3-8.2); Urobilinogen,Urine <2.0 mg/dL (<2.0)
[2021-09-03] MEDS ORDERED: POTASSIUM CHLORIDE ER 20 MEQ TAB.ER PO STA (02:02)
[2021-09-03] MEDS ORDERED: SODIUM CHLORIDE 0.9% 1,000 ML IV ONE (02:02)
[2021-09-03] MEDS ORDERED: NALOXONE 0.4 MG/ML 1 ML VIAL IV PRN (02:08)
--- NOTE | 2021-09-03 02:09 | ED ---
Nausea/Vomiting/Diarrhea HPI - General Chief complaint: Nausea/Vomiting/Diarrhea Stated complaint: Abd Pain Time Seen by Provider: 09/03/21 01:05 Source: patient, EMS Mode of arrival: EMS Limitations: no limitations - Related Data Home Medications Medication Instructions Recorded Confirmed Lidocaine 5% Ointment 1 applic TOPICAL TID 10/20/15 12/27/20 Doxepin HCl 50 mg PO HS 02/21/19 12/27/20 Gabapentin [Neurontin] 800 mg PO HS 10/27/19 12/27/20 Acetaminophen [Tylenol] 500 mg PO Q2H 12/27/20 12/27/20 Aspirin EC [Ecotrin Low Dose] 81 mg PO DAILY@1200 12/27/20 12/27/20 Tamsulosin HCl [Flomax] 0.4 mg PO DAILY@1200 12/27/20 12/27/20 lisinopriL [Zestril] 10 mg PO DAILY@1200 12/27/20 12/27/20 Previous Rx's Medication Instructions Recorded Docusate [Colace] 100 mg PO BID 30 Days #60 cap 12/31/20 HYDROcodone/APAP 10-325MG [[place] 1 tab PO TID #12 tab 12/31/20 10-325] Nystatin 100,000 Unit/ml Susp 500,000 unit PO TID 7 Days #110 ml 12/31/20 [Mycostatin Oral Susp] Pantoprazole Sodium [Protonix] 40 mg PO BID 30 Days #60 tablet. 12/31/20 Allergies Allergy/AdvReac Type Severity Reaction Status Date / Time No Known Allergies Allergy Verified 09/03/21 01:08 Review of Systems ROS Statement: Those systems with pertinent positive or pertinent negative responses have been documented in the HPI. ROS Other: All systems not noted in ROS Statement are negative. Past Medical History Past Medical History: CVA/TIA, Hypertension, Neurologic Disorder Additional Past Medical History / Comment(s): TIA- when child pt believes associated with a head injury, neurpathy L ankle, regional pain disorder L ankle, gallstones/pancreatitis with surgery, UTI. Recent bone scan for RSD History of Any Multi-Drug Resistant Organisms: None Reported Past Surgical History: Cholecystectomy, Orthopedic Surgery Additional Past Surgical History / Comment(s): left ankle ORIF repair, left index finger repair from a table saw accident, epidural injection Past Anesthesia/Blood Transfusion Reactions: No Reported Reaction Additional Past Anesthesia/Blood Transfusion Reaction / Comment(s): Never had blood transfusion Past Psychological History: Anxiety, Depression Smoking Status: Current every day smoker Past Alcohol Use History: None Reported Past Drug Use History: None Reported - Past Family History Father History Unknown: Yes Family Medical History: Unable to Obtain Additional Family Medical History / Comment(s): Pt states he hasn't had contact with his father since he was 18 yrs old. Mother Family Medical History: Coronary Artery Disease (CAD) Additional Family Medical History / Comment(s): Had cardiac stent and a tumor removed-pt does not know from where or if it was cancerous. General Exam Limitations: no limitations Course Vital Signs 09/03/21 01:05 Temperature 97.4 F L Pulse Rate 75 Respiratory 22 Rate Blood Pressure 164/95 O2 Sat by Pulse 100 Oximetry Medical Decision Making - Lab Data Result diagrams: 09/03/21 01:27 09/03/21 01:27 Lab Results 09/03/21 09/03/21 09/03/21 Range/Units 01:27 01:27 01:27 WBC 13.0 H (3.8-10.6) k/uL RBC 4.14 L (4.30-5.90) m/uL Hgb 14.3 (13.0-17.5) gm/dL Hct 41.8 (39.0-53.0) % MCV 100.8 H (80.0-100.0) fL MCH 34.6 (25.0-35.0) pg MCHC 34.3 (31.0-37.0) g/dL RDW 12.9 (11.5-15.5) % Plt Count 254 (150-450) k/uL MPV 8.1 Neutrophils % 85 % Lymphocytes % 9 % Monocytes % 4 % Eosinophils % 0 % Basophils % 0 % Neutrophils # 11.1 H (1.3-7.7) k/uL Lymphocytes # 1.2 (1.0-4.8) k/uL Monocytes # 0.6 (0-1.0) k/uL Eosinophils # 0.0 (0-0.7) k/uL Basophils # 0.0 (0-0.2) k/uL Sodium 128 L (137-145) mmol/L Potassium 3.2 L (3.5-5.1) mmol/L Chloride 92 L (98-107) mmol/L Carbon Dioxide 27 (22-30) mmol/L Anion Gap 9 mmol/L BUN 6 L (9-20) mg/dL Creatinine 0.57 L (0.66-1.25) mg/dL Est GFR (CKD-EPI)AfAm >90 (>60 ml/min/1.73 sqM) Est GFR (CKD-EPI)NonAf >90 (>60 ml/min/1.73 sqM) Glucose 129 H (74-99) mg/dL Plasma Lactic Acid Christian (0.7-2.0) mmol/L Calcium 8.9 (8.4-10.2) mg/dL Total Bilirubin 0.5 (0.2-1.3) mg/dL AST 20 (17-59) U/L ALT 21 (4-49) U/L Alkaline Phosphatase 88 (38-126) U/L Total Protein 6.9 (6.3-8.2) g/dL Albumin 4.0 (3.5-5.0) g/dL Lipase 1908 H (23-300) U/L Urine Color Yellow Urine Appearance Clear (Clear) Urine pH 6.0 (5.0-8.0) Ur Specific [place] 1.017 (1.001-1.035) Urine Protein Trace H (Negative) Urine Glucose (UA) Negative (Negative) Urine Ketones 1+ H (Negative) Urine Blood Negative (Negative) Urine Nitrite Negative (Negative) Urine Bilirubin Negative (Negative) Urine Urobilinogen <2.0 (<2.0) mg/dL Ur Leukocyte Esterase Negative (Negative) 09/03/21 Range/Units 01:27 WBC (3.8-10.6) k/uL RBC (4.30-5.90) m/uL Hgb (13.0-17.5) gm/dL Hct (39.0-53.0) % MCV (80.0-100.0) fL MCH (25.0-35.0) pg MCHC (31.0-37.0) g/dL RDW (11.5-15.5) % Plt Count (150-450) k/uL MPV Neutrophils % % Lymphocytes % % Monocytes % % Eosinophils % % Basophils % % Neutrophils # (1.3-7.7) k/uL Lymphocytes # (1.0-4.8) k/uL Monocytes # (0-1.0) k/uL Eosinophils # (0-0.7) k/uL Basophils # (0-0.2) k/uL Sodium (137-145) mmol/L Potassium (3.5-5.1) mmol/L Chloride (98-107) mmol/L Carbon Dioxide (22-30) mmol/L Anion Gap mmol/L BUN (9-20) mg/dL Creatinine (0.66-1.25) mg/dL Est GFR (CKD-EPI)AfAm (>60 ml/min/1.73 sqM) Est GFR (CKD-EPI)NonAf (>60 ml/min/1.73 sqM) Glucose (74-99) mg/dL Plasma Lactic Acid Christian 1.3 (0.7-2.0) mmol/L Calcium (8.4-10.2) mg/dL Total Bilirubin (0.2-1.3) mg/dL AST (17-59) U/L ALT (4-49) U/L Alkaline Phosphatase (38-126) U/L Total Protein (6.3-8.2) g/dL Albumin (3.5-5.0) g/dL Lipase (23-300) U/L Urine Color Urine Appearance (Clear) Urine pH (5.0-8.0) Ur Specific [place] (1.001-1.035) Urine Protein (Negative) Urine Glucose (UA) (Negative) Urine Ketones (Negative) Urine Blood (Negative) Urine Nitrite (Negative) Urine Bilirubin (Negative) Urine Urobilinogen (<2.0) mg/dL Ur Leukocyte Esterase (Negative) Disposition Clinical Impression: Acute pancreatitis Disposition: ADMITTED IP TO THIS [facility] Condition: Serious Referrals: Araseli Argueta MD [Primary Care Provider] - 1-2 days Decision to Admit Reason: Admit from EC Decision Date: 09/03/21 Decision Time: 02:09
[2021-09-03] MEDS ORDERED: NICOTINE 21MG/24HR PATCH TRANSDERM STA (03:52)
[2021-09-03] MEDS: HYDROmorphone 1 MG/ML 1 ML SYRINGE IVP PRN ×5 (04:02→20:32)
[2021-09-03] MEDS: SODIUM CHLORIDE 0.9% 1,000 ML IV SCH ×3 (04:05→20:36)
[2021-09-03] MEDS: ONDANSETRON 4 MG/2 ML VIAL IVP PRN (07:30)
[2021-09-03] MEDS ORDERED: Magnesium Replacement Protocol 1 EACH MISC MISCELLANE PRN (09:18)
[2021-09-03] MEDS ORDERED: Potassium Replacement Protocol 1 EACH MISC MISCELLANE PRN (09:18)
--- NOTE | 2021-09-03 09:40 | XR ---
EXAMINATION TYPE: XR chest 1V DATE OF EXAM: 09/03/2021 COMPARISON: 12/28/2020 HISTORY: Pancreatitis TECHNIQUE: Single frontal view of the chest is obtained. FINDINGS: There is no focal air space opacity, pleural effusion, or pneumothorax seen. The cardiac silhouette size is within normal limits. The osseous structures are intact. IMPRESSION: No acute process.
[2021-09-03] MEDS: HEPARIN SODIUM,PORCINE/PF 5,000 UNIT/0.5 ML SYRINGE SQ SCH ×2 (10:53→20:33)
[2021-09-03] MEDS: FAMOTIDINE 20 MG/2 ML VIAL IV SCH ×2 (11:41→20:33)
[2021-09-03] MEDS ORDERED: HYDROcodone/APAP 5-325MG 1 EACH TAB PO PRN (12:54)
[2021-09-03] MEDS ORDERED: SIMETHICONE 80 MG CHEWABLE PO PRN (12:54)
--- NOTE | 2021-09-03 12:58 | P.HPIM ---
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 Anxiety and depression. History of cholecystectomy Patient states he presents because of epigastric abdominal pain of 2 days' duration,. Pain radiating to the back about 60/10 in severity down to 2 today with Dilaudid. No nausea but he vomited twice with no blood. Last bowel movement was 2 days ago. No abdominal distention. He denies chest pain or dyspnea. No urinary complaint. He smokes about 3 packs per day, does not want to quit but he agrees to nicotine patch while in the hospital. No alcohol abuse, does drink of alcohol was more than one year ago. No illicit tracts. Patient developed some nausea and vomiting after his liquid diet but he wants to keep liquid diet for now. He refused nothing by mouth order Vitals looks stable. CBC showing mild leukocytosis of 13 K, sodium slightly low at 1.8. Potassium 3.2. Creatinine and liver enzymes are normal. Lipase is elevated at 1908. Urine analysis is not suspicious for infection coronavirus not detected. Chest x-ray: No acute process Emergency room he received Reglan, normal saline and pain management. Currently is on NS at 150 mL/h Review of Systems CONSTITUTIONAL: No fever, no malaise, no fatigue. HEENT: No recent visual problems or hearing problems. Denied any sore throat. CARDIOVASCULAR: No orthopnea, PND, no palpitations, no syncope. PULMONARY: No shortness of breath, no cough, no hemoptysis. GASTROINTESTINAL: No diarrhea, no nausea, Normoactive bowel sounds. NEUROLOGICAL: No headaches, no weakness, no numbness. HEMATOLOGICAL: Denies any bleeding or petechiae. GENITOURINARY: Denies any burning micturition, frequency, or urgency. MUSCULOSKELETAL/RHEUMATOLOGICAL: Denies any joint pain, swelling, or any muscle pain. ENDOCRINE: Denies any polyuria or polydipsia. Past Medical History Past Medical History: CVA/TIA, Hypertension, Neurologic Disorder Additional Past Medical History / Comment(s): TIA- when child pt believes associated with a head injury, neurpathy L ankle, regional pain disorder L ankle, gallstones/pancreatitis with surgery, UTI. History of Any Multi-Drug Resistant Organisms: None Reported Past Surgical History: Cholecystectomy, Orthopedic Surgery Additional Past Surgical History / Comment(s): left ankle ORIF repair, left index finger repair from a table saw accident, epidural injection Past Anesthesia/Blood Transfusion Reactions: No Reported Reaction Additional Past Anesthesia/Blood Transfusion Reaction / Comment(s): Never had blood transfusion Past Psychological History: Anxiety, Depression Additional Psychological History / Comment(s): Pt resides alone with his cat. He uses crutches to ambulate. He does not drive, he uses a cab. Pt is disabled. Smoking Status: Current every day smoker Past Alcohol Use History: None Reported Additional Past Alcohol Use History / Comment(s): Patient is a smoker of 3 packs per day since he was 25 years of age. Pt is a recovering alcoholic, he has not drank since June 2010. Past Drug Use History: None Reported - Past Family History Father History Unknown: Yes Family Medical History: Unable to Obtain Additional Family Medical History / Comment(s): Pt states he hasn't had contact with his father since he was 18 yrs old. Mother Family Medical History: Coronary Artery Disease (CAD) Additional Family Medical History / Comment(s): Had cardiac stent and a tumor removed-pt does not know from where or if it was cancerous. Medications and Allergies Home Medications Medication Instructions Recorded Confirmed Type Doxepin HCl 50 mg PO HS 02/21/19 09/03/21 History Gabapentin [Neurontin] 800 mg PO QID 10/27/19 09/03/21 History Acetaminophen [Tylenol] 500 mg PO Q6H PRN 12/27/20 09/03/21 History Aspirin EC [Ecotrin Low Dose] 81 mg PO DAILY 12/27/20 09/03/21 History Tamsulosin HCl [Flomax] 0.4 mg PO DAILY 12/27/20 09/03/21 History lisinopriL [Zestril] 10 mg PO DAILY 12/27/20 09/03/21 History Calcium Carbonate [Tums] 500 mg PO TID-W/MEALS PRN 09/03/21 09/03/21 History DULoxetine HCL [Cymbalta] 30 mg PO DAILY 09/03/21 09/03/21 History HYDROcodone/APAP 5-325MG [[place] 1 tab PO TID PRN 09/03/21 09/03/21 History 5-325] Simethicone [Gas-X] 125 mg PO TID-W/MEALS PRN 09/03/21 09/03/21 History Allergies Allergy/AdvReac Type Severity Reaction Status Date / Time No Known Allergies Allergy Verified 09/03/21 08:49 Physical Exam Vitals: Vital Signs Temp Pulse Resp BP Pulse Ox 09/03/21 04:05 99.1 F 97 18 155/88 98 09/03/21 01:05 97.4 F L 75 22 164/95 100 Intake and Output 09/02/21 09/03/21 09/03/21 22:59 06:59 14:59 Intake Total 2118 Output Total 250 Balance 1868 Intake: Intake, IV Titration 1998 Amount Sodium Chloride 0.9% 1, 999 000 ml @ 999 mls/hr IV . Q1H1M ONE Rx#:[id number] Sodium Chloride 0.9% 1, 999 000 ml @ 999 mls/hr IV . Q1H1M STA Rx#:[id number] Oral 120 Output: Urine 250 Other: Weight 68.946 kg GENERAL: The patient is alert and oriented x3, not in any acute distress. Well developed, well nourished. HEENT: Pupils are round and equally reacting to light. EOMI. No scleral icterus. No conjunctival pallor. Normocephalic, atraumatic. No pharyngeal erythema. No thyromegaly. CARDIOVASCULAR: S1 and S2 present. No murmurs, rubs, or gallops. PULMONARY: Chest is clear to auscultation, no wheezing or crackles. -ABDOMEN: Soft, mild epigastric tenderness, no rebound tenderness or guarding, nondistended, normoactive bowel sounds. No palpable organomegaly. MUSCULOSKELETAL: No joint swelling or deformity. EXTREMITIES: No cyanosis, clubbing, or pedal edema. NEUROLOGICAL: Gross neurological examination did not reveal any focal deficits. SKIN: No rashes. No petechiae Results CBC & Chem 7: 09/03/21 01:27 09/03/21 01:27 Labs: Abnormal Lab Results - Last 24 Hours (Table) 09/03/21 09/03/21 09/03/21 Range/Units 01: 01: 01:27 WBC 13.0 H (3.8-10.6) k/uL RBC 4.14 L (4.30-5.90) m/uL MCV 100.8 H (80.0-100.0) fL Neutrophils # 11.1 H (1.3-7.7) k/uL Sodium 128 L (137-145) mmol/L Potassium 3.2 L (3.5-5.1) mmol/L Chloride 92 L (98-107) mmol/L BUN 6 L (9-20) mg/dL Creatinine 0.57 L (0.66-1.25) mg/dL Glucose 129 H (74-99) mg/dL Lipase 1908 H (23-300) U/L Urine Protein Trace H (Negative) Urine Ketones 1+ H (Negative) Thrombosis Risk Factor Assmnt - Choose All That Apply Any of the Below Risk Factors Present?: Yes Each Factor Represents 1 point: Age 41-60 years Other Risk Factors: No Other congenital or acquired thrombophilia - If yes, enter type in comment: No Thrombosis Risk Factor Assessment Total Risk Factor Score: 1 Thrombosis Risk Factor Assessment Level: Low Risk Assessment and Plan Assessment: Acute pancreatitis Nicotine dependence History of alcohol abuse. 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 Labs and medication were reviewed.. Continue same treatment. Continue with symptomatic treatment. Resume home medication. Monitor lytes and vitals. DVT and GI prophylaxis. Further recommendations depends on the clinical course of the patient DVT prophylaxis: Subcutaneous heparin GI Prophylaxis: Pepcid PT/OT: Pending Prognosis is guarded
[2021-09-03] MEDS: DULoxetine HCL 30 MG CAPSULE.DR PO SCH (13:51)
[2021-09-03] MEDS: GABAPENTIN 400 MG CAP PO SCH ×3 (13:51→22:03)
[2021-09-03] MEDS: DOXEPIN 25 MG CAP PO SCH (20:33)
[2021-09-03] MEDS: NICOTINE 21MG/24HR PATCH TRANSDERM SCH (22:51)
[2021-09-04] MEDS: SODIUM CHLORIDE 0.9% 1,000 ML IV SCH ×4 (01:28→21:46)
[2021-09-04] MEDS: HYDROmorphone 1 MG/ML 1 ML SYRINGE IVP PRN ×5 (01:28→17:50)
[2021-09-04] MEDS: ONDANSETRON 4 MG/2 ML VIAL IVP PRN (01:32)
[2021-09-04 07:11] LABS: Basophils % (A) 0 %; Eosinophils # (A) 0.1 k/uL (0-0.7); Eosinophils % (A) 1 %; HGB 13.7 gm/dL (13.0-17.5); Lymphocytes # (A) 2.1 k/uL (1.0-4.8); Lymphocytes % (A) 30 %; MCH 35.1 pg (25.0-35.0); MCHC 34.1 g/dL (31.0-37.0); MCV 102.8 fL (80.0-100.0); Macrocytosis Slight; Mean Platelet Volume 8.6; Monocytes # (A) 0.4 k/uL (0-1.0); Monocytes % (A) 6 %; Neutrophils # (A) 4.2 k/uL (1.3-7.7); Neutrophils % (A) 61 %; Platelet Count 205 k/uL (150-450); WBC 6.9 k/uL (3.8-10.6)
[2021-09-04] MEDS: DULoxetine HCL 30 MG CAPSULE.DR PO SCH (08:50)
[2021-09-04] MEDS: FAMOTIDINE 20 MG/2 ML VIAL IV SCH ×2 (08:50→21:16)
[2021-09-04] MEDS: ASPIRIN 81 MG PO SCH (08:50)
[2021-09-04] MEDS: TAMSULOSIN 0.4 MG CAP.ER.24H PO SCH (08:51)
[2021-09-04] MEDS: lisinopriL 10 MG TAB PO SCH (08:51)
[2021-09-04] MEDS: HEPARIN SODIUM,PORCINE/PF 5,000 UNIT/0.5 ML SYRINGE SQ SCH ×2 (08:51→21:16)
[2021-09-04] MEDS: GABAPENTIN 400 MG CAP PO SCH ×4 (08:51→21:15)
[2021-09-04] MEDS: NICOTINE 21MG/24HR PATCH TRANSDERM SCH (08:52)
[2021-09-04 10:58] LABS: African American GFR (CKD) 134.9 (60.0-200.0); Albumin 3.4 g/dL (3.8-4.9); Albumin/Globulin Ratio 1.62 (1.60-3.17); Anion Gap 10.9 mmol/L (4.00-12.00); BUN/Creat Ratio 5.33 Ratio (12.00-20.00); Blood Urea Nitrogen 3.2 mg/dL (9.0-27.0); Calcium 8.3 mg/dL (8.7-10.3); Carbon Dioxide 29.1 mmol/L (21.6-31.8); Globulin 2.1 g/dL (1.6-3.3); Magnesium 1.8 mg/dL (1.5-2.4); Non-African American GFR(CKD) 116.4 (60.0-200.0); Potassium 3.2 mmol/L (3.5-5.5); Total Bilirubin 0.3 mg/dL (0.30-1.20); Total Protein 5.5 g/dL (6.2-8.2)
[2021-09-04] MEDS ORDERED: Potassium Replacement Protocol 1 EACH MISC MISCELLANE PRN (12:03)
[2021-09-04] MEDS: POTASSIUM CHLORIDE ER 20 MEQ TAB.ER PO SCH ×2 (12:37→13:47)
[2021-09-04] MEDS: DOXEPIN 25 MG CAP PO SCH (21:44)
[2021-09-05] MEDS: HYDROmorphone 1 MG/ML 1 ML SYRINGE IVP PRN ×4 (00:21→12:30)
[2021-09-05] MEDS: ONDANSETRON 4 MG/2 ML VIAL IVP PRN (00:27)
[2021-09-05] MEDS: SODIUM CHLORIDE 0.9% 1,000 ML IV SCH ×3 (05:00→15:05)
[2021-09-05 06:32] LABS: ALT 16 U/L (4-49); AST 16 U/L (17-59); African American GFR (CKD) >90 (>60 ml/min/1.73 sqM); Albumin 3.3 g/dL (3.5-5.0); Albumin/Globulin Ratio 1.1; Alkaline Phosphatase 68 U/L (38-126); Anion Gap 4 mmol/L; Blood Urea Nitrogen <2 mg/dL (9-20); Calcium 9.2 mg/dL (8.4-10.2); Carbon Dioxide 37 mmol/L (22-30); Chloride 97 mmol/L (98-107); Globulin 2.9 g/dL; Glucose 108 mg/dL (74-99); Non-African American GFR(CKD) >90 (>60 ml/min/1.73 sqM); Potassium 3.8 mmol/L (3.5-5.1); Sodium 138 mmol/L (137-145); Total Bilirubin 0.2 mg/dL (0.2-1.3); Total Protein 6.2 g/dL (6.3-8.2)
--- NOTE | 2021-09-05 07:14 | P.PN ---
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 Anxiety and depression. History of cholecystectomy Patient states he presents because of epigastric abdominal pain of 2 days' duration,. Pain radiating to the back about 60/10 in severity down to 2 today with Dilaudid. No nausea but he vomited twice with no blood. Last bowel movement was 2 days ago. No abdominal distention. He denies chest pain or dyspnea. No urinary complaint. He smokes about 3 packs per day, does not want to quit but he agrees to nicotine patch while in the hospital. No alcohol abuse, does drink of alcohol was more than one year ago. No illicit tracts. Patient developed some nausea and vomiting after his liquid diet but he wants to keep liquid diet for now. He refused nothing by mouth order Vitals looks stable. CBC showing mild leukocytosis of 13 K, sodium slightly low at 1.8. Potassium 3.2. Creatinine and liver enzymes are normal. Lipase is elevated at 1908. Urine analysis is not suspicious for infection coronavirus not detected. Chest x-ray: No acute process Emergency room he received Reglan, normal saline and pain management. Currently is on NS at 150 mL/h 09/04/2021 Patient abdominal pain is improving and he is tolerating clear liquid diet and o nce his diet to be advanced. To be advanced to full liquid diet and later on into soft and then regular diet. Recommend that his abdominal pain is 2/10. He has normal bowel movement with passing gas with the total amount. No nausea vomiting. Hemodynamically stable Lower IV fluids to normal saline 100 mL per hour Objective - Vital Signs Vital signs: Vital Signs Temp 99.4 F 09/04/21 04:45 Pulse 100 09/04/21 04:45 Resp 20 09/04/21 04:45 BP 99/69 09/04/21 04:45 Pulse Ox 94 L 09/04/21 04:45 Intake & Output 09/03/21 09/04/21 09/04/21 19:59 06:59 18:59 Intake Total Balance Intake: Oral Other: Voiding Method # Voids - Exam GENERAL: The patient is alert and oriented x3, not in any acute distress. Well developed, well nourished. HEENT: Pupils are round and equally reacting to light. EOMI. No scleral icterus. No conjunctival pallor. Normocephalic, atraumatic. No pharyngeal erythema. No thyromegaly. CARDIOVASCULAR: S1 and S2 present. No murmurs, rubs, or gallops. PULMONARY: Chest is clear to auscultation, no wheezing or crackles. -ABDOMEN: Soft, epigastric tenderness, nondistended, normoactive bowel sounds. No palpable organomegaly. MUSCULOSKELETAL: No joint swelling or deformity. EXTREMITIES: No cyanosis, clubbing, or pedal edema. NEUROLOGICAL: Gross neurological examination did not reveal any focal deficits. SKIN: No rashes. no petechiae. - Labs CBC & Chem 7: 09/04/21 06:25 09/05/21 05:42 Labs: Abnormal Lab Results - Last 24 Hours (Table) 09/04/21 09/04/21 Range/Units 06:25 06:25 RBC 3.90 L (4.30-5.90) m/uL MCV 102.8 H (80.0-100.0) fL MCH 35.1 H (25.0-35.0) pg Potassium 3.2 L (3.5-5.5) mmol/L BUN 3.2 L (9.0-27.0) mg/dL BUN/Creatinine Ratio 5.33 L (12.00-20.00) Ratio Calcium 8.3 L (8.7-10.3) mg/dL AST 13 L (14-35) U/L Total Protein 5.5 L (6.2-8.2) g/dL Albumin 3.4 L (3.8-4.9) g/dL Assessment and Plan Assessment: Acute pancreatitis Nicotine dependence History of alcohol abuse. 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 Labs and medication were reviewed.. Continue same treatment. Continue with symptomatic treatment. Resume home medication. Monitor lytes and vitals. DVT and GI prophylaxis. Further recommendations depends on the clinical course of t he patient DVT prophylaxis: Subcutaneous heparin GI Prophylaxis: Pepcid PT/OT: Pending Prognosis is guarded
[2021-09-05] MEDS: lisinopriL 10 MG TAB PO SCH (07:50)
[2021-09-05] MEDS: ASPIRIN 81 MG PO SCH (07:50)
[2021-09-05] MEDS: GABAPENTIN 400 MG CAP PO SCH ×4 (07:50→21:09)
[2021-09-05] MEDS: TAMSULOSIN 0.4 MG CAP.ER.24H PO SCH (07:50)
[2021-09-05] MEDS: FAMOTIDINE 20 MG/2 ML VIAL IV SCH ×2 (07:50→21:09)
[2021-09-05] MEDS: HEPARIN SODIUM,PORCINE/PF 5,000 UNIT/0.5 ML SYRINGE SQ SCH ×2 (07:52→21:09)
[2021-09-05] MEDS: NICOTINE 21MG/24HR PATCH TRANSDERM SCH (07:53)
[2021-09-05] MEDS: DULoxetine HCL 30 MG CAPSULE.DR PO SCH (08:03)
--- NOTE | 2021-09-05 15:40 | P.PN ---
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 Anxiety and depression. History of cholecystectomy Patient states he presents because of epigastric abdominal pain of 2 days' duration,. Pain radiating to the back about 60/10 in severity down to 2 today with Dilaudid. No nausea but he vomited twice with no blood. Last bowel movement was 2 days ago. No abdominal distention. He denies chest pain or dyspnea. No urinary complaint. He smokes about 3 packs per day, does not want to quit but he agrees to nicotine patch while in the hospital. No alcohol abuse, does drink of alcohol was more than one year ago. No illicit tracts. Patient developed some nausea and vomiting after his liquid diet but he wants to keep liquid diet for now. He refused nothing by mouth order Vitals looks stable. CBC showing mild leukocytosis of 13 K, sodium slightly low at 1.8. Potassium 3.2. Creatinine and liver enzymes are normal. Lipase is elevated at 1908. Urine analysis is not suspicious for infection coronavirus not detected. Chest x-ray: No acute process Emergency room he received Reglan, normal saline and pain management. Currently is on NS at 150 mL/h 09/04/2021 Patient abdominal pain is improving and he is tolerating clear liquid diet and once his diet to be advanced. To be advanced to full liquid diet and later on into soft and then regular diet. Recommend that his abdominal pain is 2/10. He has normal bowel movement with passing gas with the total amount. No nausea vomiting. Hemodynamically stable Lower IV fluids to normal saline 100 mL per hour 09/05/2021 Patient is seen and evaluated in follow-up today is sleeping although arousable. Patient states he continues with some nausea although is tolerating diet which is been advanced. Patient states he is not eating much as he continues with abdominal pain. Per nursing staff patient continues to request IV pain medication and will adjust dose and add oral pain medications and encouraged increase activity as tolerated and encouraged oral intake. Patient is continued on normal saline and sodium has improved and will decrease amount. Labs: Sodium is 138, potassium is 3.8, creatinine is 0.61, liver functions within normal limits Review of systems: Constitutional: No reports of fatigue, fever, or chills Cardiovascular: No reports of chest pain or palpitations Respiratory: No reports of shortness of breath or cough GI: reports of nausea, no reports of vomiting, reports abdominal pain in the lower left and right quadrant : No reports of dysuria or retention Neurovascular: No reports of weakness or numbness All medications have been reviewed Active Medications Hydrocodone Bitart/Acetaminophen (Hydrocodone/Apap 5-325mg 1 Each Tab) 1 each PO Q6H PRN PRN Reason: Moderate Pain Aspirin (Aspirin 81 Mg) 81 mg PO DAILY [facility] Last Admin: 09/05/21 07:50 Dose: 81 mg Documented by: Doxepin HCl (Doxepin 25 Mg Cap) 50 mg PO HS [facility] Last Admin: 09/04/21 21:44 Dose: 50 mg Documented by: Duloxetine HCl (Duloxetine Hcl 30 Mg Capsule.Dr) 30 mg PO DAILY [facility] Last Admin: 09/05/21 08:03 Dose: 30 mg Documented by: Famotidine (Famotidine 20 Mg/2 Ml Vial) 20 mg IV Q12HR [facility] Last Admin: 09/05/21 07:50 Dose: 20 mg Documented by: Gabapentin (Gabapentin 400 Mg Cap) 800 mg PO QID [facility] Last Admin: 09/05/21 12:30 Dose: 800 mg Documented by: Heparin Sodium (Porcine) (Heparin Sodium,Porcine/Pf 5,000 Unit/0.5 Ml Syringe) 5,000 unit SQ Q12HR [facility] Last Admin: 09/05/21 07:52 Dose: 5,000 unit Documented by: Hydromorphone HCl (Hydromorphone 0.5 Mg/0.5 Ml Syringe) 0.5 mg IVP Q6H PRN PRN Reason: Severe Pain Sodium Chloride (Saline 0.9%) 1,000 mls @ 100 mls/hr IV .Q10H [facility] Last Admin: 09/05/21 15:05 Dose: 100 mls/hr Documented by: Lisinopril (Lisinopril 10 Mg Tab) 10 mg PO DAILY [facility] Last Admin: 09/05/21 07:50 Dose: 10 mg Documented by: Miscellaneous Information (Potassium Replacement Protocol 1 Each Misc) 1 each MISCELLANE DAILY PRN; Protocol PRN Reason: Per Protocol Miscellaneous Information (Magnesium Replacement Protocol 1 Each Misc) 1 each MISCELLANE DAILY PRN; Protocol PRN Reason: Per Protocol Miscellaneous Information (Potassium Replacement Protocol 1 Each Misc) 1 each MISCELLANE DAILY PRN; Protocol PRN Reason: Per Protocol Naloxone HCl (Naloxone 0.4 Mg/Ml 1 Ml Vial) 0.2 mg IV Q2M PRN PRN Reason: Opioid Reversal Nicotine (Nicotine 21mg/24hr Patch) 1 patch TRANSDERM DAILY [facility] Last Admin: 09/05/21 07:53 Dose: 1 patch Documented by: Ondansetron HCl (Ondansetron 4 Mg/2 Ml Vial) 4 mg IVP Q8HR PRN PRN Reason: Nausea And Vomiting Last Admin: 09/05/21 00:27 Dose: 4 mg Documented by: Simethicone (Simethicone 80 Mg Chewable) 160 mg PO TID-W/MEALS PRN PRN Reason: gas Tamsulosin HCl (Tamsulosin 0.4 Mg Cap.Er.24h) 0.4 mg PO DAILY [facility] Last Admin: 09/05/21 07:50 Dose: 0.4 mg Documented by: Physical exam: GENERAL: The patient is asleep but arousable, alert and oriented x3, not in any acute distress. Well developed, well nourished. HEENT: Pupils are round and equally reacting to light. EOMI. No scleral icterus. No conjunctival pallor. Normocephalic, atraumatic. No pharyngeal erythema. No thyromegaly. CARDIOVASCULAR: S1 and S2 present. No murmurs, rubs, or gallops. PULMONARY: Chest is clear to auscultation, no wheezing or crackles. ABDOMEN: Soft, epigastric tenderness, nondistended, normoactive bowel sounds. No palpable organomegaly. MUSCULOSKELETAL: No joint swelling or deformity. EXTREMITIES: No cyanosis, clubbing, or pedal edema. NEUROLOGICAL: Gross neurological examination did not reveal any focal deficits. SKIN: No rashes. no petechiae. Assessment: Acute pancreatitis Continued ongoing Nicotine dependence History of alcohol abuse. 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 Increase diet as tolerated and encouraged oral intake. Will decrease dose of IV Dilaudid and encouraged the patient to use oral pain medications. Encouraged increase activity as tolerated and getting up and sitting out of the bed more often as he is mostly laying and sleeping all day. Per nursing staff patient is requesting IV pain medications. Prognosis is guarded. Further recommendations to follow based on the clinical course of the patient. Discussed with nursing staff about avoiding IV pain medications if possible. Encouraged oral intake and anticipate possible discharge in 24 hours. Objective - Vital Signs Vital signs: Vital Signs Temp 98 F 09/05/21 05:00 Pulse 82 09/05/21 05:00 Resp 16 09/05/21 05:00 BP 170/97 09/05/21 05:00 Pulse Ox 90 L 09/05/21 05:00 Intake & Output 09/04/21 09/05/21 09/05/21 18:59 06:59 18:59 Intake Total 360 Output Total 1050 1800 550 Balance -690 1800 550 Intake: Oral 360 Output: Urine 1050 1800 550 Other: Voiding Method Toilet Toilet Urinal Urinal # Voids 2 # Bowel Movements 1 - Labs CBC & Chem 7: 09/04/21 06:25 09/05/21 05:42 Labs: Abnormal Lab Results - Last 24 Hours (Table) 09/04/21 09/05/21 Range/Units 06:25 05:42 Potassium 3.2 L (3.5-5.5) mmol/L Chloride 97 L (98-107) mmol/L Carbon Dioxide 37 H (22-30) mmol/L BUN 3.2 L <2 L (9.0-27.0) mg/dL Creatinine 0.61 L (0.66-1.25) mg/dL BUN/Creatinine Ratio 5.33 L (12.00-20.00) Ratio Glucose 108 H (74-99) mg/dL Calcium 8.3 L (8.7-10.3) mg/dL AST 13 L 16 L (14-35) U/L Total Protein 5.5 L 6.2 L (6.2-8.2) g/dL Albumin 3.4 L 3.3 L (3.8-4.9) g/dL
[2021-09-05] MEDS: HYDROcodone/APAP 5-325MG 1 EACH TAB PO PRN ×2 (15:55→22:07)
[2021-09-05] MEDS: HYDROmorphone 0.5 MG/0.5 ML SYRINGE IVP PRN (17:58)
[2021-09-05] MEDS: DOXEPIN 25 MG CAP PO SCH (21:09)
[2021-09-06] MEDS: HYDROmorphone 0.5 MG/0.5 ML SYRINGE IVP PRN (01:51)
[2021-09-06] MEDS: HYDROcodone/APAP 5-325MG 1 EACH TAB PO PRN ×2 (04:12→12:10)
[2021-09-06] MEDS: SODIUM CHLORIDE 0.9% 1,000 ML IV SCH (05:47)
[2021-09-06] MEDS: HEPARIN SODIUM,PORCINE/PF 5,000 UNIT/0.5 ML SYRINGE SQ SCH (08:05)
[2021-09-06] MEDS: NICOTINE 21MG/24HR PATCH TRANSDERM SCH (08:59)
[2021-09-06] MEDS: DULoxetine HCL 30 MG CAPSULE.DR PO SCH (08:59)
[2021-09-06] MEDS: GABAPENTIN 400 MG CAP PO SCH ×2 (08:59→14:33)
[2021-09-06] MEDS: lisinopriL 10 MG TAB PO SCH (08:59)
[2021-09-06] MEDS: ASPIRIN 81 MG PO SCH (08:59)
[2021-09-06] MEDS: TAMSULOSIN 0.4 MG CAP.ER.24H PO SCH (08:59)
[2021-09-06] MEDS: FAMOTIDINE 20 MG/2 ML VIAL IV SCH (08:59)
[2021-09-06 09:05] VITALS: TEMP 99
[2021-09-06 12:50] VITALS: BP 153/103; PULSE 71; RESP 18
== END 2021-09-06 15:27 | disposition home or self-care (01) | DRG 440 ==
LOC: EC 00:55 → 5NMEDONC 02:06
PROVIDERS: ADMIT Internal Medicine; ATTEND Internal Medicine
DX: K85.90 Acute pancreatitis without necrosis or infection, unspecified (principal); Z20.822 Contact with and (suspected) exposure to COVID-19; F17.210 Nicotine dependence, cigarettes, uncomplicated; I10 Essential (primary) hypertension; F32.9 Major depressive disorder, single episode, unspecified; F41.9 Anxiety disorder, unspecified; G62.89 Other specified polyneuropathies; F10.10 Alcohol abuse, uncomplicated; Z79.82 Long term (current) use of aspirin; Z79.899 Other long term (current) drug therapy; Z86.73 Personal history of transient ischemic attack (TIA), and cerebral infarction without residual deficits; Z98.890 Other specified postprocedural states; Z90.49 Acquired absence of other specified parts of digestive tract; Z82.49 Family history of ischemic heart disease and other diseases of the circulatory system; Z87.440 Personal history of urinary (tract) infections
CPT/HCPCS: 36415; 71045; 80053; 81003; 83605; 83690; 83735; 85025; 87635; 96374; 96375; 99285

== ENCOUNTER 2022-01-06 09:53 | Emergency (ER) | payer MEDICARE, OTHER ==
[2022-01-06 10:11] VITALS: TEMP 98.8
[2022-01-06] MEDS ORDERED: SODIUM CHLORIDE 0.9% 1,000 ML IV STA (10:17)
[2022-01-06] MEDS ORDERED: MORPHINE SULFATE 2 MG/ML SYRINGE IVP STA (10:17)
--- NOTE | 2022-01-06 10:33 | ED ---
General Adult HPI - General Chief complaint: Abdominal Pain Stated complaint: Abd pain Time Seen by Provider: 01/06/22 09:58 Source: patient Mode of arrival: EMS Limitations: no limitations - History of Present Illness Initial comments: This 51-year-old male presents emergency Department with abdominal pain that began at midnight. Patient states he's also had 2-3 episodes of diarrhea and about 3 episodes of vomiting since midnight as well. Patient states he has had pancreatitis in the past, however at this time his pain is in his left lower quadrant. Patient denies any drinking alcohol. Patient states pain is in his left lower quadrant and describes as sharp. Patient states that sometimes the pain radiates to his back. Patient states the pain gets a little bit worse with moving around or lying flat. Patient denies any fever, hemoptysis, hematochezia. Patient denies any chest pain, shortness of breath, change in bladder, change in vision, headache, lightheadedness, dizziness, weakness, bowel or bladder incontinence/retention, saddle anesthesia. Patient denies ever having diverticulitis or kidney stones in his past. - Related Data Home Medications Medication Instructions Recorded Confirmed Doxepin HCl 50 mg PO HS 02/21/19 01/06/22 Gabapentin [Neurontin] 800 mg PO QID 10/27/19 01/06/22 Tamsulosin HCl [Flomax] 0.4 mg PO DAILY 12/27/20 01/06/22 lisinopriL [Zestril] 10 mg PO DAILY 12/27/20 01/06/22 DULoxetine HCL [Cymbalta] 30 mg PO DAILY 09/03/21 01/06/22 Ibuprofen 1 dose PO DIRECTED 01/06/22 01/06/22 Previous Rx's Medication Instructions Recorded HYDROcodone/APAP 5-325MG [[place] 1 tab PO TID PRN #10 tab 09/06/21 5-325] Amoxic-Pot Clav 875-125Mg 1 tab PO Q8HR #15 tab 01/06/22 [Augmentin 875-125] Ondansetron Odt [Zofran ODT] 4 mg PO Q8HR PRN #10 tab 01/06/22 Allergies Allergy/AdvReac Type Severity Reaction Status Date / Time No Known Allergies Allergy Verified 09/03/21 08:49 Review of Systems ROS Statement: Those systems with pertinent positive or pertinent negative responses have been documented in the HPI. ROS Other: All systems not noted in ROS Statement are negative. Past Medical History Past Medical History: CVA/TIA, Hypertension, Neurologic Disorder Additional Past Medical History / Comment(s): TIA- when child pt believes associated with a head injury, neurpathy L ankle, regional pain disorder L ankle, gallstones/pancreatitis with surgery, UTI. History of Any Multi-Drug Resistant Organisms: None Reported Past Surgical History: Cholecystectomy, Orthopedic Surgery Additional Past Surgical History / Comment(s): left ankle ORIF repair, left index finger repair from a table saw accident, epidural injection Past Anesthesia/Blood Transfusion Reactions: No Reported Reaction Additional Past Anesthesia/Blood Transfusion Reaction / Comment(s): Never had blood transfusion Past Psychological History: Anxiety, Depression Smoking Status: Current every day smoker Past Alcohol Use History: None Reported Past Drug Use History: None Reported - Past Family History Father History Unknown: Yes Family Medical History: Unable to Obtain Additional Family Medical History / Comment(s): Pt states he hasn't had contact with his father since he was 18 yrs old. Mother Family Medical History: Coronary Artery Disease (CAD) Additional Family Medical History / Comment(s): Had cardiac stent and a tumor removed-pt does not know from where or if it was cancerous. General Exam Limitations: no limitations General appearance: alert, in no apparent distress Head exam: Present: atraumatic, normocephalic, normal inspection Eye exam: Present: normal appearance, PERRL, EOMI. Absent: scleral icterus, conjunctival injection, periorbital swelling Pupils: Present: normal accommodation ENT exam: Present: normal exam, mucous membranes moist Neck exam: Present: normal inspection, full ROM. Absent: tenderness, meningismus, lymphadenopathy Respiratory exam: Present: normal lung sounds bilaterally. Absent: respiratory distress, wheezes, rales, rhonchi, stridor Cardiovascular Exam: Present: regular rate, normal rhythm, normal heart sounds. Absent: systolic murmur, diastolic murmur, rubs, gallop, clicks GI/Abdominal exam: Present: soft, tenderness (Left lower quadrant tenderness to palpation), normal bowel sounds. Absent: distended, guarding, rebound, rigid Extremities exam: Present: full ROM, normal capillary refill Back exam: Present: normal inspection, full ROM, CVA tenderness (L). Absent: CVA tenderness (R), paraspinal tenderness, vertebral tenderness Neurological exam: Present: alert, oriented X3, CN II-XII intact, normal gait Psychiatric exam: Present: normal affect, normal mood Skin exam: Present: warm, dry, intact, normal color. Absent: rash Course Vital Signs 01/06/22 01/06/22 01/06/22 10:00 11:31 12:52 Temperature 98.8 F Pulse Rate 68 65 Respiratory 16 16 Rate Blood Pressure 173/112 156/96 O2 Sat by Pulse 99 96 Oximetry - Reevaluation(s) Reevaluation #1: 01/06/22 11:44 Patient states his pain is significantly improved. Patient sitting in bed. Patient states he still does have some lower left quadrant pain. He does not feel nauseous and has not vomited since being here. 01/06/22 12:18 Patient lying in bed sleeping. When awakened he states his pain is so slightly there, however is still improved. He is not feeling any nausea at this time. Patient has not vomited since in the emergency department. 301/06/22 12:56 Patient lying bed sleeping. Patient states pain is coming back and is now 5/10. I did tell patient I would give him some more pain medication. Patient states he is a little bit nauseous at this time. He has not vomited since being in the emergency department. 01/06/22 13:19 Patient states he has not received his pain medication at. Patient states he is beginning to hungry. I did bring in a sandwich and water which patient did eat without any nausea or vomiting. Patient with diverticulitis and prescribed an antibiotic. Strict return precautions were discussed with patient. 01/06/22 13:58 On reevaluation, patient was able to eat a sandwich. He did drink water. Patient's pain is under control as he states it is not really there at this time. Patient is no longer nauseous and has not vomited while being here in the emergency department. Strict return precautions were discussed with patient and he agreed to return if any of the symptoms returned or anything new arises. Medical Decision Making - Medical Decision Making This 51-year-old male presents emergency Department with left lower quadrant pain that began at midnight. Patient also has had diarrhea and vomiting since midnight, however he did not vomit while in the emergency department. Computed tomography scan abdomen and pelvis did show acute diverticulitis. Patient given dose of Augmentin while here in the emergency department. Patient prescribed Augmentin 4 times a day 5 days. Patient instructed to follow up with primary care provider next 1-2 days. Patient also given Zofran prescription for home. Patient instructed to return to the emergency department if he is unable to keep down solids or liquids or if his pain returns. Patient's pain was controlled prior to discharge and patient did not feel nauseous prior to discharge. Patient did not vomit at all while in the emergency department. Patient to follow-up with his primary care provider next 1-2 days. Strict return precautions were discussed. Patient verbally agreed to plan. Patient sent home in stable condition. Case discussed with my attending, Dr. Kellogg. - Lab Data Result diagrams: 01/06/22 10:55 01/06/22 10:55 Lab Results 01/06/22 01/06/22 01/06/22 Range/Units 10:55 10:55 10:55 WBC 12.5 H (3.8-10.6) k/uL RBC 4.42 (4.30-5.90) m/uL Hgb 14.9 (13.0-17.5) gm/dL Hct 44.7 (39.0-53.0) % MCV 101.1 H (80.0-100.0) fL MCH 33.7 (25.0-35.0) pg MCHC 33.4 (31.0-37.0) g/dL RDW 14.4 (11.5-15.5) % Plt Count 397 (150-450) k/uL MPV 7.8 Neutrophils % 77 % Lymphocytes % 17 % Monocytes % 3 % Eosinophils % 1 % Basophils % 0 % Neutrophils # 9.6 H (1.3-7.7) k/uL Lymphocytes # 2.1 (1.0-4.8) k/uL Monocytes # 0.4 (0-1.0) k/uL Eosinophils # 0.1 (0-0.7) k/uL Basophils # 0.0 (0-0.2) k/uL Macrocytosis Slight PT 9.9 (9.0-12.0) sec INR 0.9 (<1.2) APTT 24.6 (22.0-30.0) sec Sodium 136 L (137-145) mmol/L Potassium 4.0 (3.5-5.1) mmol/L Chloride 102 (98-107) mmol/L Carbon Dioxide 25 (22-30) mmol/L Anion Gap 9 mmol/L BUN 8 L (9-20) mg/dL Creatinine 0.85 (0.66-1.25) mg/dL Est GFR (CKD-EPI)AfAm >90 (>60 ml/min/1.73 sqM) Est GFR (CKD-EPI)NonAf >90 (>60 ml/min/1.73 sqM) Glucose 130 H (74-99) mg/dL Plasma Lactic Acid Christian (0.7-2.0) mmol/L Calcium 9.3 (8.4-10.2) mg/dL Total Bilirubin 0.6 (0.2-1.3) mg/dL AST 31 (17-59) U/L ALT 52 H (4-49) U/L Alkaline Phosphatase 83 (38-126) U/L Total Protein 7.7 (6.3-8.2) g/dL Albumin 4.5 (3.5-5.0) g/dL Lipase 148 (23-300) U/L Urine Color Urine Appearance (Clear) Urine pH (5.0-8.0) Ur Specific [place] (1.001-1.035) Urine Protein (Negative) Urine Glucose (UA) (Negative) Urine Ketones (Negative) Urine Blood (Negative) Urine Nitrite (Negative) Urine Bilirubin (Negative) Urine Urobilinogen (<2.0) mg/dL Ur Leukocyte Esterase (Negative) 01/06/22 01/06/22 Range/Units 10:55 11:43 WBC (3.8-10.6) k/uL RBC (4.30-5.90) m/uL Hgb (13.0-17.5) gm/dL Hct (39.0-53.0) % MCV (80.0-100.0) fL MCH (25.0-35.0) pg MCHC (31.0-37.0) g/dL RDW (11.5-15.5) % Plt Count (150-450) k/uL MPV Neutrophils % % Lymphocytes % % Monocytes % % Eosinophils % % Basophils % % Neutrophils # (1.3-7.7) k/uL Lymphocytes # (1.0-4.8) k/uL Monocytes # (0-1.0) k/uL Eosinophils # (0-0.7) k/uL Basophils # (0-0.2) k/uL Macrocytosis PT (9.0-12.0) sec INR (<1.2) APTT (22.0-30.0) sec Sodium (137-145) mmol/L Potassium (3.5-5.1) mmol/L Chloride (98-107) mmol/L Carbon Dioxide (22-30) mmol/L Anion Gap mmol/L BUN (9-20) mg/dL Creatinine (0.66-1.25) mg/dL Est GFR (CKD-EPI)AfAm (>60 ml/min/1.73 sqM) Est GFR (CKD-EPI)NonAf (>60 ml/min/1.73 sqM) Glucose (74-99) mg/dL Plasma Lactic Acid Christian 1.3 (0.7-2.0) mmol/L Calcium (8.4-10.2) mg/dL Total Bilirubin (0.2-1.3) mg/dL AST (17-59) U/L ALT (4-49) U/L Alkaline Phosphatase (38-126) U/L Total Protein (6.3-8.2) g/dL Albumin (3.5-5.0) g/dL Lipase (23-300) U/L Urine Color Yellow Urine Appearance Clear (Clear) Urine pH 5.5 (5.0-8.0) Ur Specific [place] 1.043 H (1.001-1.035) Urine Protein Trace H (Negative) Urine Glucose (UA) Negative (Negative) Urine Ketones Negative (Negative) Urine Blood Negative (Negative) Urine Nitrite Negative (Negative) Urine Bilirubin Negative (Negative) Urine Urobilinogen <2.0 (<2.0) mg/dL Ur Leukocyte Esterase Negative (Negative) Disposition Clinical Impression: Diverticulitis Disposition: HOME SELF-CARE Condition: Stable Additional Instructions: Please follow-up with your primary care provider next 1-2 days. Take antibiotics as directed. Take Zofran as directed. Return to the emergency department with any new, worsening, or concerning symptoms. Prescriptions: Amoxic-Pot Clav 875-125Mg [Augmentin 875-125] 1 tab PO Q8HR #15 tab Ondansetron Odt [Zofran ODT] 4 mg PO Q8HR PRN #10 tab PRN Reason: Nausea Is patient prescribed a controlled substance at d/c from ED?: No Referrals: Araseli Argueta MD [Primary Care Provider] - 1-2 days Time of Disposition: 13:58
[2022-01-06 11:10] LABS: Basophils % (A) 0 %; Eosinophils # (A) 0.1 k/uL (0-0.7); Eosinophils % (A) 1 %; HCT 44.7 % (39.0-53.0); HGB 14.9 gm/dL (13.0-17.5); Lymphocytes # (A) 2.1 k/uL (1.0-4.8); Lymphocytes % (A) 17 %; MCH 33.7 pg (25.0-35.0); MCHC 33.4 g/dL (31.0-37.0); MCV 101.1 fL (80.0-100.0); Macrocytosis Slight; Mean Platelet Volume 7.8; Monocytes # (A) 0.4 k/uL (0-1.0); Monocytes % (A) 3 %; Neutrophils # (A) 9.6 k/uL (1.3-7.7); Neutrophils % (A) 77 %; Platelet Count 397 k/uL (150-450); RBC 4.42 m/uL (4.30-5.90); RDW 14.4 % (11.5-15.5); WBC 12.5 k/uL (3.8-10.6)
[2022-01-06 11:19] LABS: ALT 52 U/L (4-49); African American GFR (CKD) >90 (>60 ml/min/1.73 sqM); Albumin 4.5 g/dL (3.5-5.0); Anion Gap 9 mmol/L; Blood Urea Nitrogen 8 mg/dL (9-20); Calcium 9.3 mg/dL (8.4-10.2); Carbon Dioxide 25 mmol/L (22-30); Chloride 102 mmol/L (98-107); Glucose 130 mg/dL (74-99); Lipase 148 U/L (23-300); Non-African American GFR(CKD) >90 (>60 ml/min/1.73 sqM); Sodium 136 mmol/L (137-145); Total Bilirubin 0.6 mg/dL (0.2-1.3); Total Protein 7.7 g/dL (6.3-8.2)
[2022-01-06 11:23] LABS: INR 0.9 (<1.2); Partial Thromboplastin Time 24.6 sec (22.0-30.0); Prothrombin Time 9.9 sec (9.0-12.0)
[2022-01-06 11:25] LABS: AST 31 U/L (17-59); Alkaline Phosphatase 83 U/L (38-126)
[2022-01-06 11:37] VITALS: RESP 16
[2022-01-06 12:05] LABS: Appearance,Urine Clear (Clear); Bilirubin,Urine Negative (Negative); Blood,Urine Negative (Negative); Color,Urine Yellow; Glucose,Urine (UA) Negative (Negative); Ketones,Urine Negative (Negative); Leukocyte Esterase,Urine Negative (Negative); Nitrite,Urine Negative (Negative); PH, Urine 5.5 (5.0-8.0); Protein,Urine Trace (Negative); Specific Gravity,Urine 1.043 (1.001-1.035); Urobilinogen,Urine <2.0 mg/dL (<2.0)
--- NOTE | 2022-01-06 12:48 | CT ---
EXAMINATION TYPE: CT abdomen pelvis w con DATE OF EXAM: 01/06/2022 COMPARISON: CT dated 12/27/2020 HISTORY: Left sided abdominal pain with cramping CT DLP: 640.5 mGycm Automated exposure control for dose reduction was used. TECHNIQUE: Helical acquisition of images was performed from the lung bases through the pelvis. CONTRAST: Performed without Oral Contrast and with IV Contrast, patient injected with 100 ml mL of Isovue 300. FINDINGS: LUNG BASES: Left lower lobe minimal pulmonary peripheral reticulations. LIVER/GB: No definite hepatic focal lesion. Previous cholecystectomy. PANCREAS: Interval improvement of the previously seen signs of acute pancreatitis with residual minim al peripancreatic fat stranding. The previously described cyst formation at the tail of the pancreas along the anterior aspect of the left kidney is a smaller today measuring 12 mm compared to 16 mm pre viously. Minimal pancreatic duct dilatation. No definite pancreatic lesion or areas of pancreatic nec rosis. SPLEEN: No significant abnormality is seen. ADRENALS: No significant abnormality is seen. KIDNEYS: No significant abnormality is seen. FREE AIR: No free air is visualized. RETROPERITONEAL ADENOPATHY: None visualized REPRODUCTIVE ORGANS: No significant abnormality is seen URINARY BLADDER: Slightly thickened wall, please correlate with urinalysis results. PELVIC ADENOPATHY: None visualized. OSSEOUS STRUCTURES: No aggressive bone lesion. BOWEL: Unremarkable stomach, duodenum and small bowel. Undistended left colon with slightly thickene d wall and minimal fat stranding surrounding the midportion of the descending colon. This could repre sent mild colitis or mild acute diverticulitis. No definite abscess formation or signs of perforation . No colonic obstruction. Grossly unremarkable remainder of the colon. Normal appendix. OTHER: Scattered arterial atherosclerotic calcifications mainly at the common iliac arteries. No siza ble ascites. IMPRESSION: 1. IMPROVING CHANGES OF ACUTE PANCREATITIS DESCRIBED ABOVE. 2. THE DESCRIBED MILD CHANGES IN THE LEFT HEMICOLON AND DESCENDING COLON COULD BE RELATED TO MILD ACU TE COLITIS OR MILD ACUTE DIVERTICULITIS, PLEASE CORRELATE CLINICALLY AND WITH STOOL ANALYSIS RESULTS. NO OTHER DEFINITE ACUTE ABNORMALITY IDENTIFIED IN THE ABDOMEN OR THE PELVIS. INCIDENTAL FINDINGS DESCRIBED ABOVE.
[2022-01-06 12:53] VITALS: BP 156/96; PULSE 65
[2022-01-06] MEDS ORDERED: HYDROmorphone 0.5 MG/0.5 ML SYRINGE IVP STA (13:21)
[2022-01-06] MEDS ORDERED: METOCLOPRAMIDE 5 MG/ML 2 ML VIAL IVP STA (13:22)
[2022-01-06] MEDS ORDERED: AMOXIC-POT CLAV 875-125MG 1 EACH TAB PO STA (13:26)
== END 2022-01-06 14:15 | disposition home or self-care (01) ==
LOC: EC 09:53
DX: K57.32 Diverticulitis of large intestine without perforation or abscess without bleeding (principal); I10 Essential (primary) hypertension; F41.9 Anxiety disorder, unspecified; F32.A Depression, unspecified; F17.200 Nicotine dependence, unspecified, uncomplicated; Z86.73 Personal history of transient ischemic attack (TIA), and cerebral infarction without residual deficits; Z87.440 Personal history of urinary (tract) infections; Z90.49 Acquired absence of other specified parts of digestive tract
CPT/HCPCS: 99284; 96374; 96375 ×2; 96361; 36415; 80053; 83605; 83690; 85025; 85610; 85730; 81003; 74177; J2765; J2270; J1170; Q9967

== ENCOUNTER → 2022-03-28 | Outpatient (CLI) | payer MEDICARE, OTHER ==
--- NOTE | 2022-03-28 15:10 | XR ---
Fourth digit right hand HISTORY: Trauma and pain 2 views of the fourth digit of the right hand submitted Soft tissue swelling is noted at the proximal interphalangeal joint. Bone mineralization, joint space s and alignment are maintained. Mild spurring is present at the proximal interphalangeal joint of the fourth digit similar to the third digit. IMPRESSION: No radiographically apparent fracture or dislocation, mild osteoarthritic change is prese nt, follow-up as indicated
== END | disposition home or self-care (01) ==
LOC: RADXRMAIN 14:48
PROVIDERS: ATTEND Internal Medicine
DX: S69.91XA Unspecified injury of right wrist, hand and finger(s), initial encounter (principal); M19.041 Primary osteoarthritis, right hand

== ENCOUNTER 2022-04-20 11:26 | Emergency (ER) | payer MEDICARE, OTHER ==
[2022-04-20] MEDS ORDERED: SODIUM CHLORIDE 0.9% 1,000 ML IV STA (14:35)
[2022-04-20] MEDS ORDERED: ONDANSETRON 4 MG/2 ML VIAL IVP STA (14:35)
--- NOTE | 2022-04-20 15:25 | ED ---
Abdominal Pain HPI - General Chief Complaint: Abdominal Pain Stated Complaint: Possible Pancreatitis Time Seen by Provider: 04/20/22 14:13 Source: patient Mode of arrival: wheelchair Limitations: no limitations - History of Present Illness Initial Comments: Patient is a 52-year-old male presenting with chief complaint of abdominal pain, nausea, vomiting. Patient has a history of pancreatitis. He was seen at Dr. Argueta's office yesterday, today his labs came back and the office called him informing that he has pancreatitis again. Patient states that there is 4/10 epigastric pain with radiation to the back, and he has been taking Zofran for his nausea. He denies any chest pain or shortness of breath. Admits to some diarrhea. No fever or chills. No hematochezia, melena, dysuria, hematuria, urgency, frequency. - Related Data Home Medications Medication Instructions Recorded Confirmed Doxepin HCl 50 mg PO HS 02/21/19 04/20/22 Gabapentin [Neurontin] 800 mg PO QID 10/27/19 04/20/22 Tamsulosin HCl [Flomax] 0.4 mg PO DAILY 12/27/20 04/20/22 lisinopriL [Zestril] 10 mg PO DAILY 12/27/20 04/20/22 DULoxetine HCL [Cymbalta] 30 mg PO DAILY 09/03/21 04/20/22 Acetaminophen Tab [Tylenol Tab] 2,000 mg PO Q6HR PRN 04/20/22 04/20/22 Aspirin EC [Ecotrin Low Dose] 81 mg PO DAILY 04/20/22 04/20/22 Lactulose 10 gm PO DAILY PRN 04/20/22 04/20/22 Previous Rx's Medication Instructions Recorded Ondansetron Odt [Zofran ODT] 4 mg PO Q8HR PRN #10 tab 01/06/22 Ondansetron Odt [Zofran Odt] 4 mg PO Q8HR PRN #10 tab 04/20/22 Allergies Allergy/AdvReac Type Severity Reaction Status Date / Time No Known Allergies Allergy Verified 04/20/22 17:10 Review of Systems ROS Statement: Those systems with pertinent positive or pertinent negative responses have been documented in the HPI. ROS Other: All systems not noted in ROS Statement are negative. Past Medical History Past Medical History: CVA/TIA, Hypertension, Neurologic Disorder Additional Past Medical History / Comment(s): TIA- when child pt believes associated with a head injury, neurpathy L ankle, regional pain disorder L ankle, gallstones/pancreatitis with surgery, UTI. History of Any Multi-Drug Resistant Organisms: None Reported Past Surgical History: Cholecystectomy, Orthopedic Surgery Additional Past Surgical History / Comment(s): left ankle ORIF repair, left i ndex finger repair from a table saw accident, epidural injection Past Anesthesia/Blood Transfusion Reactions: No Reported Reaction Additional Past Anesthesia/Blood Transfusion Reaction / Comment(s): Never had blood transfusion Past Psychological History: Anxiety, Depression Smoking Status: Current every day smoker Past Alcohol Use History: None Reported Past Drug Use History: None Reported - Past Family History Father History Unknown: Yes Family Medical History: Unable to Obtain Additional Family Medical History / Comment(s): Pt states he hasn't had contact with his father since he was 18 yrs old. Mother Family Medical History: Coronary Artery Disease (CAD) Additional Family Medical History / Comment(s): Had cardiac stent and a tumor removed-pt does not know from where or if it was cancerous. General Exam Limitations: no limitations General appearance: alert, in no apparent distress Head exam: Present: atraumatic, normocephalic, normal inspection Eye exam: Present: normal appearance, EOMI. Absent: scleral icterus Neck exam: Present: normal inspection Respiratory exam: Present: normal lung sounds bilaterally. Absent: respiratory distress, wheezes, rales, rhonchi, stridor Cardiovascular Exam: Present: regular rate, normal rhythm, normal heart sounds. Absent: systolic murmur, diastolic murmur, rubs, gallop, clicks GI/Abdominal exam: Present: soft, tenderness (Upper quadrants), normal bowel sounds. Absent: distended, guarding, rebound, rigid Back exam: Present: normal inspection. Absent: CVA tenderness (R), CVA tenderness (L) Neurological exam: Present: alert, oriented X3, CN II-XII intact Psychiatric exam: Present: normal affect, normal mood Skin exam: Present: warm, dry, intact, normal color. Absent: rash Course Vital Signs 04/20/22 04/20/22 11:58 16:12 Temperature 97.0 F L 98.4 F Pulse Rate 87 74 Respiratory 14 16 Rate Blood Pressure 119/78 128/98 O2 Sat by Pulse 98 99 Oximetry Medical Decision Making - Medical Decision Making Patient is a 52-year-old male presenting with chief complaint of abdominal pain. Located mainly in the epigastric region, this is accompanied by nausea and vomiting. He has a history of pancreatitis. He was seen by Dr. Argueta yesterday and labs were drawn. States that today the office called him informing him that he had pancreatitis again. On examination there is some mild tenderness on palpation of the upper quadrants. Otherwise unremarkable. Sodium 134, ALT 51, which corresponds to previous values. Lipase slightly elevated at 363. Urine shows 1+ protein, trace ketones, mucus. Patient is given fluids, Zofran, and pain medication. On reevaluation he states that his pain is a 3 out of 10, and his nausea has significantly improved. Given his labs and manageable symptoms, he appears stable for discharge with outpatient follow-up at this time. Follow- up with Dr. Argueta one to 2 days. Report back to ER with any new or worsening symptoms. I discussed return parameters answered all questions. Patient conveyed verbal understanding and agreed to the plan. I discussed this case with my attending Dr. Palomares. - Lab Data Result diagrams: 04/20/22 15:05 04/20/22 15:05 Lab Results 04/20/22 04/20/22 04/20/22 Range/Units 15:05 15:05 15:05 WBC 10.3 (3.8-10.6) k/uL RBC 4.24 L (4.30-5.90) m/uL Hgb 14.6 (13.0-17.5) gm/dL Hct 43.5 (39.0-53.0) % MCV 102.5 H (80.0-100.0) fL MCH 34.5 (25.0-35.0) pg MCHC 33.6 (31.0-37.0) g/dL RDW 13.9 (11.5-15.5) % Plt Count 327 (150-450) k/uL MPV 7.4 Neutrophils % 70 % Lymphocytes % 22 % Monocytes % 5 % Eosinophils % 1 % Basophils % 1 % Neutrophils # 7.1 (1.3-7.7) k/uL Lymphocytes # 2.2 (1.0-4.8) k/uL Monocytes # 0.5 (0-1.0) k/uL Eosinophils # 0.1 (0-0.7) k/uL Basophils # 0.1 (0-0.2) k/uL Macrocytosis Slight Sodium 134 L (137-145) mmol/L Potassium 3.8 (3.5-5.1) mmol/L Chloride 96 L (98-107) mmol/L Carbon Dioxide 29 (22-30) mmol/L Anion Gap 9 mmol/L BUN 12 (9-20) mg/dL Creatinine 0.62 L (0.66-1.25) mg/dL Est GFR (CKD-EPI)AfAm >90 (>60 ml/min/1.73 sqM) Est GFR (CKD-EPI)NonAf >90 (>60 ml/min/1.73 sqM) Glucose 112 H (74-99) mg/dL Plasma Lactic Acid Christian (0.7-2.0) mmol/L Calcium 9.3 (8.4-10.2) mg/dL Total Bilirubin 0.4 (0.2-1.3) mg/dL AST 29 (17-59) U/L ALT 51 H (4-49) U/L Alkaline Phosphatase 75 (38-126) U/L Troponin I (0.000-0.034) ng/mL Total Protein 7.8 (6.3-8.2) g/dL Albumin 4.8 (3.5-5.0) g/dL Amylase 87 (30-110) U/L Lipase 363 H (23-300) U/L Urine Color Yellow Urine Appearance Clear (Clear) Urine pH 6.0 (5.0-8.0) Ur Specific [place] 1.034 (1.001-1.035) Urine Protein 1+ H (Negative) Urine Glucose (UA) Negative (Negative) Urine Ketones Trace H (Negative) Urine Blood Negative (Negative) Urine Nitrite Negative (Negative) Urine Bilirubin Negative (Negative) Urine Urobilinogen 2.0 (<2.0) mg/dL Ur Leukocyte Esterase Negative (Negative) Urine RBC <1 (0-5) /hpf Urine WBC 1 (0-5) /hpf Ur Squamous Epith Cells 1 (0-4) /hpf Urine Mucus Rare H (None) /hpf 04/20/22 04/20/22 Range/Units 15:05 15:05 WBC (3.8-10.6) k/uL RBC (4.30-5.90) m/uL Hgb (13.0-17.5) gm/dL Hct (39.0-53.0) % MCV (80.0-100.0) fL MCH (25.0-35.0) pg MCHC (31.0-37.0) g/dL RDW (11.5-15.5) % Plt Count (150-450) k/uL MPV Neutrophils % % Lymphocytes % % Monocytes % % Eosinophils % % Basophils % % Neutrophils # (1.3-7.7) k/uL Lymphocytes # (1.0-4.8) k/uL Monocytes # (0-1.0) k/uL Eosinophils # (0-0.7) k/uL Basophils # (0-0.2) k/uL Macrocytosis Sodium (137-145) mmol/L Potassium (3.5-5.1) mmol/L Chloride (98-107) mmol/L Carbon Dioxide (22-30) mmol/L Anion Gap mmol/L BUN (9-20) mg/dL Creatinine (0.66-1.25) mg/dL Est GFR (CKD-EPI)AfAm (>60 ml/min/1.73 sqM) Est GFR (CKD-EPI)NonAf (>60 ml/min/1.73 sqM) Glucose (74-99) mg/dL Plasma Lactic Acid Christian 0.8 (0.7-2.0) mmol/L Calcium (8.4-10.2) mg/dL Total Bilirubin (0.2-1.3) mg/dL AST (17-59) U/L ALT (4-49) U/L Alkaline Phosphatase (38-126) U/L Troponin I <0.012 (0.000-0.034) ng/mL Total Protein (6.3-8.2) g/dL Albumin (3.5-5.0) g/dL Amylase (30-110) U/L Lipase (23-300) U/L Urine Color Urine Appearance (Clear) Urine pH (5.0-8.0) Ur Specific [place] (1.001-1.035) Urine Protein (Negative) Urine Glucose (UA) (Negative) Urine Ketones (Negative) Urine Blood (Negative) Urine Nitrite (Negative) Urine Bilirubin (Negative) Urine Urobilinogen (<2.0) mg/dL Ur Leukocyte Esterase (Negative) Urine RBC (0-5) /hpf Urine WBC (0-5) /hpf Ur Squamous Epith Cells (0-4) /hpf Urine Mucus (None) /hpf Disposition Clinical Impression: Abdominal pain, Nausea and vomiting Disposition: HOME SELF-CARE Condition: Fair Instructions (If sedation given, give patient instructions): Pancreatitis (ED), Abdominal Pain (ED) Additional Instructions: Follow-up with PCP in one to 2 days. Report back to ER with any new or worsen ing symptoms. Take medication as prescribed. Prescriptions: Ondansetron Odt [Zofran Odt] 4 mg PO Q8HR PRN #10 tab PRN Reason: Nausea Is patient prescribed a controlled substance at d/c from ED?: No Referrals: Araseli Argueta MD [Primary Care Provider] - 1-2 days Time of Disposition: 17:29
[2022-04-20 15:35] LABS: Basophils # (A) 0.1 k/uL (0-0.2); Basophils % (A) 1 %; Eosinophils # (A) 0.1 k/uL (0-0.7); Eosinophils % (A) 1 %; HCT 43.5 % (39.0-53.0); HGB 14.6 gm/dL (13.0-17.5); Lymphocytes # (A) 2.2 k/uL (1.0-4.8); Lymphocytes % (A) 22 %; MCH 34.5 pg (25.0-35.0); MCHC 33.6 g/dL (31.0-37.0); MCV 102.5 fL (80.0-100.0); Macrocytosis Slight; Mean Platelet Volume 7.4; Monocytes # (A) 0.5 k/uL (0-1.0); Monocytes % (A) 5 %; Neutrophils # (A) 7.1 k/uL (1.3-7.7); Neutrophils % (A) 70 %; Platelet Count 327 k/uL (150-450); RBC 4.24 m/uL (4.30-5.90); RDW 13.9 % (11.5-15.5); WBC 10.3 k/uL (3.8-10.6)
[2022-04-20 15:50] LABS: ALT 51 U/L (4-49); AST 29 U/L (17-59); African American GFR (CKD) >90 (>60 ml/min/1.73 sqM); Albumin 4.8 g/dL (3.5-5.0); Alkaline Phosphatase 75 U/L (38-126); Amylase 87 U/L (30-110); Anion Gap 9 mmol/L; Appearance,Urine Clear (Clear); Bilirubin,Urine Negative (Negative); Blood Urea Nitrogen 12 mg/dL (9-20); Blood,Urine Negative (Negative); Calcium 9.3 mg/dL (8.4-10.2); Carbon Dioxide 29 mmol/L (22-30); Chloride 96 mmol/L (98-107); Color,Urine Yellow; Glucose 112 mg/dL (74-99); Glucose,Urine (UA) Negative (Negative); Ketones,Urine Trace (Negative); Leukocyte Esterase,Urine Negative (Negative); Lipase 363 U/L (23-300); Mucus,Urine Rare /hpf; Nitrite,Urine Negative (Negative); Non-African American GFR(CKD) >90 (>60 ml/min/1.73 sqM); Potassium 3.8 mmol/L (3.5-5.1); Protein,Urine 1+ (Negative); RBC,Urine <1 /hpf (0-5); Sodium 134 mmol/L (137-145); Specific Gravity,Urine 1.034 (1.001-1.035); Squamous Epithelial Cell,Urine 1 /hpf (0-4); Total Bilirubin 0.4 mg/dL (0.2-1.3); Total Protein 7.8 g/dL (6.3-8.2); WBC,Urine 1 /hpf (0-5)
[2022-04-20 16:13] VITALS: BP 128/98; PULSE 74; RESP 16; TEMP 98.4
[2022-04-20] MEDS ORDERED: NICOTINE 7MG/24HR PATCH TRANSDERM STA (16:17)
[2022-04-20] MEDS ORDERED: KETOROLAC 15 MG/ML 1 ML VIAL IVP STA (16:17)
[2022-04-20] MEDS ORDERED: SODIUM CHLORIDE 0.9% 1,000 ML IV SCH (17:15)
== END 2022-04-20 17:45 | disposition home or self-care (01) ==
LOC: EC 11:26
DX: R10.13 Epigastric pain (principal); R11.2 Nausea with vomiting, unspecified; I10 Essential (primary) hypertension; F32.A Depression, unspecified; F41.9 Anxiety disorder, unspecified; F17.200 Nicotine dependence, unspecified, uncomplicated; Z86.73 Personal history of transient ischemic attack (TIA), and cerebral infarction without residual deficits; Z79.82 Long term (current) use of aspirin; Z79.899 Other long term (current) drug therapy
CPT/HCPCS: 36415; 80053; 82150; 83605; 83690; 84484; 85025; 81001; 99284; 96374; J2405